=== PATIENT | female | born 1945 | race Caucasian/White ===

== ENCOUNTER → 2020-04-04 09:28 | Outpatient (BNVA) | payer MEDICARE, SELFPAY | PROVIDERS: PCP Internal Medicine; Referring Provider Internal Medicine; Visit Provider Internal Medicine Gastroenterology | DX: Z76.89 Persons encountering health services in other specified circumstances (principal) ==

== ENCOUNTER 2020-10-06 12:13 | Outpatient (REF) | payer MEDICARE, SELFPAY ==
[2020-10-06 14:04] LABS: Glucose Urine UA NEG (NEG); Leukocyte Esterase Urine NEG (NEG); Nitrite Urine NEG (NEG); PH 5.5 (5.0-8.0); Specific Gravity - Urine 1.025 (1.005-1.025); Urine Blood 1+ (NEG); Urine Ketones NEG (NEG); Urine Protein NEG (NEG-TRACE)
[2020-10-06 14:10] LABS: Appearance Urine CLEAR; Color Urine YELLOW
[2020-10-06 14:17] LABS: MANUAL DIFF FLAG NO
[2020-10-06 14:25] LABS: Basophils Percent Auto 0.2 % (0-2); Eosinophils Absolute Auto 0.3 X10*3/uL (0.0-0.4); Eosinophils Percent Auto 4.7 % (0-4); Hematocrit 38.1 % (37-47); Hemoglobin 12.1 g/dl (12.0-16.0); Imm Gran Abs Auto 0.02 X10*3/uL (0.00-0.03); Imm Gran Pct Auto 0.3 % (0.0-0.4); Lymphocytes Absolute Auto 1.9 X10*3/uL (1.2-4.9); Lymphocytes Percent Auto 29.1 % (20-40); Mean Corpuscular HGB Conc 31.8 g/dl (31.0-35.0); Mean Corpuscular Hemoglobin 28.2 pg (27.0-33.0); Mean Corpuscular Volume 88.8 fL (80-98); Mean Platelet Volume 9.7 fL (9.4-12.3); Monocytes Absolute Auto 0.3 X10*3/uL (0.1-1.2); Monocytes Percent Auto 5.3 % (2-11); Neutrophils Absolute Auto 3.9 X10*3/uL (2.0-8.3); Neutrophils Percent Auto 60.4 % (45-73); Platelet Count 200 X10*3/uL (160-400); Red Blood Count 4.29 X10*6/uL (4.20-5.50); White Blood Count 6.5 X10*3/uL (4.8-10.8)
[2020-10-06 14:53] LABS: Alanine Aminotransferase 18 U/L (0-31); Albumin Level 4.4 g/dL (3.5-5.0); Alkaline Phosphatase 113 U/L (39-117); Anion Gap 13 (12-20); Aspartate Amino Transferase 22 U/L (5-31); Bilirubin Total 0.5 mg/dL (0.0-1.0); Blood Urea Nitrogen 15 mg/dL (9-16); Calcium 9.4 mg/dL (8.4-10.2); Carbon Dioxide 30 mmol/L (22-29); Chloride 103 mmol/L (96-108); Cholesterol 200 mg/dL; Estimated Glomerular Filt Rate > 60; Glucose Fasting 91 mg/dL (60-99); HDL Cholesterol 49 mg/dL; LDL Cholesterol Calculated 115 mg/dl; Potassium 3.9 mmol/L (3.3-5.1); Sodium 142 mmol/L (135-145); Triglycerides 181 mg/dL
[2020-10-06 15:00] LABS: Squamous Epithelial Cell Urine 1+ /LPF; WBC Urine 0 /HPF (0-4)
[2020-10-06 15:03] LABS: TSH reflex Free T4 0.95 uIU/mL (0.32-4.0)
== END 2020-10-06 12:14 | disposition home or self-care (01) ==
LOC: HO.HMGCLDS 12:13
PROVIDERS: PCP Internal Medicine; Visit Provider Internal Medicine
DX: Z00.00 Encounter for general adult medical examination without abnormal findings (principal); R07.9 Chest pain, unspecified; R21 Rash and other nonspecific skin eruption
CPT/HCPCS: 36415; 80053; 80061; 81001; 84443; 85025

== ENCOUNTER 2021-11-24 15:14 | Outpatient (REF) | payer MEDICARE, SELFPAY ==
[2021-11-24 15:36] LABS: Binax Internal Control QC Valid; Binax Now Covid-19 Ag Positive (Negative)
== END 2021-11-24 15:15 | disposition home or self-care (01) ==
LOC: HO.HMGCLDS 15:14
PROVIDERS: PCP Internal Medicine; Visit Provider Internal Medicine
DX: Z20.822 Contact with and (suspected) exposure to COVID-19 (principal); J06.9 Acute upper respiratory infection, unspecified
CPT/HCPCS: 87811; C9803

== ENCOUNTER 2022-01-04 14:11 | Outpatient (REF) | payer MEDICARE, SELFPAY ==
[2022-01-04 14:56] LABS: MANUAL DIFF FLAG NO
[2022-01-04 15:04] LABS: Basophils Percent Auto 0.2 % (0-2); Eosinophils Absolute Auto 0.1 X10*3/uL (0.0-0.4); Eosinophils Percent Auto 1.6 % (0-4); Hematocrit 35.8 % (37.0-47.0); Hemoglobin 11.5 g/dl (12.0-16.0); Imm Gran Abs Auto 0.02 X10*3/uL (0.00-0.03); Imm Gran Pct Auto 0.4 % (0.0-0.4); Lymphocytes Absolute Auto 1.6 X10*3/uL (1.2-4.9); Lymphocytes Percent Auto 28.8 % (20-40); Mean Corpuscular HGB Conc 32.1 g/dl (31.0-35.0); Mean Corpuscular Hemoglobin 28.3 pg (27.0-33.0); Mean Platelet Volume 9.5 fL (9.4-12.3); Monocytes Absolute Auto 0.4 X10*3/uL (0.1-1.2); Monocytes Percent Auto 6.5 % (2-11); Neutrophils Absolute Auto 3.5 x10*3/uL (2.0-8.3); Neutrophils Percent Auto 62.5 % (45-73); Platelet Count 232 X10*3/uL (160-400); Red Blood Count 4.07 X10*6/uL (4.20-5.50); Red Cell Distribution Width 14.6 % (11.0-16.0); White Blood Count 5.6 X10*3/uL (4.8-10.8)
[2022-01-04 15:38] LABS: Alanine Aminotransferase 27 U/L (0-31); Albumin Level 4.3 g/dL (3.5-5.0); Alkaline Phosphatase 90 U/L (39-117); Anion Gap 14 (12-20); Aspartate Amino Transferase 27 U/L (5-31); Bilirubin Total 0.5 mg/dL (0.0-1.0); Blood Urea Nitrogen 16 mg/dL (9-16); C Reactive Protein 0.71 mg/dL (< or = 0.50); Calcium 9.6 mg/dL (8.4-10.2); Carbon Dioxide 28 mmol/L (22-29); Chloride 105 mmol/L (96-108); Estimated Glomerular Filt Rate > 60; Glucose Random 132 mg/dL (60-115); Iron 40 mcg/dL (30-160); Magnesium 2.1 mg/dL (1.6-2.6); Percent Iron Saturation 11 % (15-50); Potassium 3.8 mmol/L (3.3-5.1); Sodium 143 mmol/L (135-145); Total Iron Binding Capacity 374 mcg/dL (228-428); Total Protein 6.9 g/dL (6.5-8.0); Unsaturated Iron Binding 334 ug/dL
[2022-01-04 15:59] LABS: Vitamin D 25-OH Total 39.6 ng/mL (>30)
[2022-01-04 16:06] LABS: Vitamin B12 310 pg/mL (200-900)
== END 2022-01-04 14:12 | disposition home or self-care (01) ==
LOC: HO.HMGCLDS 14:11
PROVIDERS: PCP Internal Medicine; Visit Provider Internal Medicine
DX: I10 Essential (primary) hypertension (principal); R53.81 Other malaise; R53.83 Other fatigue; E55.9 Vitamin D deficiency, unspecified
CPT/HCPCS: 36415; 80053; 82306; 82607; 83540; 83735; 85025; 86140

== ENCOUNTER 2022-02-17 09:27 | Outpatient (REF) | payer MEDICARE, SELFPAY ==
[2022-02-17 11:39] LABS: Estimated Average Glucose 111 mg/dL; Hemoglobin A1c % 5.5 %
[2022-02-17 13:59] LABS: Blood Urea Nitrogen 20 mg/dL (9-16); Estimated Glomerular Filt Rate > 60; Glucose Fasting 90 mg/dL (60-99); Potassium 4.3 mmol/L (3.3-5.1)
[2022-02-17 14:35] LABS: Anion Gap 17 (12-20); Calcium 9.7 mg/dL (8.4-10.2); Carbon Dioxide 26 mmol/L (22-29); Chloride 105 mmol/L (96-108); Sodium 144 mmol/L (135-145)
== END 2022-02-17 09:28 | disposition home or self-care (01) ==
LOC: HO.HMGCLDS 09:27
PROVIDERS: PCP Internal Medicine; Visit Provider Internal Medicine
DX: R73.9 Hyperglycemia, unspecified (principal)
CPT/HCPCS: 36415; 80048; 83036

== ENCOUNTER 2022-03-01 15:04 | Outpatient (REF) | payer MEDICARE, SELFPAY ==
--- NOTE | ~2022-03-01 | XR_ITS ---
EXAMINATION: XR BILATERAL HIPS WITH AP PELVIS CLINICAL INFORMATION: M54.9 - Dorsalgia, unspecified. COMPARISON: CT abdomen pelvis dated 08/22/2019. TECHNIQUE: AP view of the pelvis and frog-leg lateral views of each hip were obtained. FINDINGS: Mzpd-bx-vjoqstgl osteoarthritis is evident at the pubic symphysis and sacroiliac joints with marginal osteophytes, joint space narrowing, articular sclerosis. There is minimal osteoarthritis in the hips. No fracture or malalignment. Degenerative spondylosis is evident in the lower lumbar spine. Soft tissues are unremarkable. No fracture or malalignment. 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 Minimal osteoarthritis in the hips.
--- NOTE | ~2022-03-01 | XR_ITS ---
EXAMINATION: XR LUMBOSACRAL SPINE CLINICAL INFORMATION: M54.9 - Dorsalgia, unspecified. COMPARISON: CT abdomen and pelvis dated 08/22/2019. TECHNIQUE: AP and lateral views of the lumbar spine and lateral view of the lumbosacral junction. FINDINGS: Minimal grade 1 retrolisthesis of L1 on L2 (2 mm) and L2 on L3 (2 mm). There is mild loss of vertebral disc height at most levels in the lumbar spine with relative sparing of L3-L4. Small endplate osteophytes are noted. No fractures are identified. Multilevel facet arthropathy. Mild osteoarthritis is present in the SI joints and hip joints bilaterally. Mild osteitis pubis. No fracture or malalignment. Surgical clips are present in the abdomen centrally. There is calcific atherosclerosis in the abdominal aorta. XR/XR lumbar spine 2-3V IMPRESSION: Mild multilevel degenerative disc disease and facet arthropathy throughout the lumbar spine. No acute osseous abnormalities. Mild retrolisthesis of L1 on L2 and L2 on L3.
== END 2022-03-01 15:05 | disposition home or self-care (01) ==
LOC: HO.HMGCX 15:04
PROVIDERS: PCP Internal Medicine; Visit Provider Internal Medicine
DX: M25.551 Pain in right hip (principal); M25.552 Pain in left hip; M54.9 Dorsalgia, unspecified
CPT/HCPCS: 72100; 73522

== ENCOUNTER 2022-05-05 12:36 | Outpatient (REF) | payer MEDICARE, SELFPAY | END 2022-05-05 12:37 | disposition home or self-care (01) | LOC: HO.HMGCLDS 12:36 | PROVIDERS: PCP Internal Medicine; Visit Provider Internal Medicine | DX: R10.9 Unspecified abdominal pain (principal); Z11.0 Encounter for screening for intestinal infectious diseases | CPT/HCPCS: 87338 ==

== ENCOUNTER 2022-07-19 13:55 | Outpatient (REF) | payer MEDICARE, SELFPAY ==
[2022-07-19 17:30] LABS: Influenza A PCR NEGATIVE (Negative); Influenza B PCR NEGATIVE (Negative); Resp Syncy Virus RNA Qual PCR NEGATIVE (Negative); SARS COV2 PCR INHOUSE POSITIVE (Negative)
== END 2022-07-19 13:56 | disposition home or self-care (01) ==
LOC: HO.LAB 13:55
PROVIDERS: Visit Provider Internal Medicine
DX: Z20.822 Contact with and (suspected) exposure to COVID-19 (principal); J06.9 Acute upper respiratory infection, unspecified
CPT/HCPCS: 0241U

== ENCOUNTER 2022-10-08 10:58 | Outpatient (REF) | payer MEDICARE, SELFPAY ==
[2022-10-08 14:07] LABS: MANUAL DIFF FLAG NO
[2022-10-08 14:14] LABS: Basophils Percent Auto 0.2 % (0-2); Eosinophils Absolute Auto 0.1 X10*3/uL (0.0-0.4); Eosinophils Percent Auto 1.4 % (0-4); Hematocrit 38.2 % (37.0-47.0); Hemoglobin 12.3 g/dl (12.0-16.0); Imm Gran Abs Auto 0.04 X10*3/uL (0.00-0.03); Imm Gran Pct Auto 0.4 % (0.0-0.4); Lymphocytes Absolute Auto 2.2 X10*3/uL (1.2-4.9); Lymphocytes Percent Auto 24.3 % (20-40); Mean Corpuscular HGB Conc 32.2 g/dl (31.0-35.0); Mean Corpuscular Hemoglobin 28.3 pg (27.0-33.0); Mean Platelet Volume 9.3 fL (9.4-12.3); Monocytes Absolute Auto 0.4 X10*3/uL (0.1-1.2); Monocytes Percent Auto 4.8 % (2-11); Neutrophils Absolute Auto 6.3 x10*3/uL (2.0-8.3); Neutrophils Percent Auto 68.9 % (45-73); Platelet Count 246 X10*3/uL (160-400); Red Blood Count 4.34 X10*6/uL (4.20-5.50); Red Cell Distribution Width 13.2 % (11.0-16.0); White Blood Count 9.1 X10*3/uL (4.8-10.8)
[2022-10-08 14:28] LABS: Alanine Aminotransferase 23 U/L (0-31); Albumin Level 4.3 g/dL (3.5-5.0); Alkaline Phosphatase 102 U/L (39-117); Anion Gap 16 (12-20); Aspartate Amino Transferase 24 U/L (5-31); Bilirubin Total 0.4 mg/dL (0.0-1.0); Blood Urea Nitrogen 13 mg/dL (9-16); Calcium 9.6 mg/dL (8.4-10.2); Carbon Dioxide 29 mmol/L (22-29); Chloride 103 mmol/L (96-108); Cholesterol 203 mg/dL; Estimated Glomerular Filt Rate > 60; Glucose Fasting 85 mg/dL (60-99); HDL Cholesterol 53 mg/dL; Iron 59 mcg/dL (30-160); LDL Cholesterol Calculated 128 mg/dl; Percent Iron Saturation 17 % (15-50); Sodium 144 mmol/L (135-145); Total Iron Binding Capacity 355 mcg/dL (228-428); Total Protein 6.9 g/dL (6.5-8.0); Triglycerides 113 mg/dL; Unsaturated Iron Binding 296 ug/dL
== END 2022-10-08 10:59 | disposition home or self-care (01) ==
LOC: HO.HMGCLDS 10:58
PROVIDERS: PCP Internal Medicine; Visit Provider Internal Medicine
DX: E55.9 Vitamin D deficiency, unspecified (principal); I10 Essential (primary) hypertension; M25.551 Pain in right hip; M25.552 Pain in left hip; R73.9 Hyperglycemia, unspecified; E61.1 Iron deficiency
CPT/HCPCS: 36415; 80053; 80061; 83540; 85025

== ENCOUNTER 2022-10-18 13:11 | Outpatient (REF) | payer MEDICARE, SELFPAY ==
--- NOTE | ~2022-10-18 | XR_ITS ---
EXAMINATION: XR KNEE, RIGHT CLINICAL INFORMATION: M25.561 - Pain in right knee COMPARISON: None available. TECHNIQUE: Four views of the right knee. FINDINGS: There is a moderate suprapatellar effusion. Hoffa's fat pad appears normal. The deep infrapatellar recess is preserved. There is minor spurring at the quadriceps insertion patella. There is no fracture, dislocation, or destructive process. Minor marginal osteophytes are seen medial femoral condyle and medial tibial plateau. No focal joint narrowing or subchondral sclerosis, erosive changes, or chondrocalcinosis. XR/XR knee RT 4V IMPRESSION: - Moderate suprapatellar effusion. - No joint narrowing or erosive change.
== END 2022-10-18 13:12 | disposition home or self-care (01) ==
LOC: HO.HMGCX 13:11
PROVIDERS: PCP Internal Medicine; Visit Provider Internal Medicine
DX: M25.561 Pain in right knee (principal)
CPT/HCPCS: 73564

== ENCOUNTER 2022-12-13 14:01 | Outpatient (AMB) | payer MEDICARE, SELFPAY ==
--- NOTE | 2022-12-13 14:02 | MHC.OFFVIS ---
Intake Intake Visit Reasons: Gastroesophageal reflux disease (GERD) Intake Note: Negra presents in the office as a follow up for GERD. CC: She is having acid reflux every once in a while - she states that when it does happen it is very severe. Stump Blower Required: Yes Stump Blower Name: daughter Allergies azithromycin Adverse Reaction (Intermediate, Verified 12/13/22 14:02) Stomach Upset HPI Gastroesophageal reflux disease (GERD) HPI Details A 77-year-old female with a history gastric cancer s/p partial gastrectomy 1998 BEING CALLED for f/u ? RECAP: Seen initially with increased acid reflux with [facility] ? She had refused an EGD, as well as PPI for acid reflux. ? Barium swallow was performed instead ===>severe reflux, no masses . ? She was prescribed nexium by [facility]< unclear if she was going to take it ? INTERIM: she is feeling well she has no symptoms she does have reflux and regurgitation but been better more recently --not using any medication right now, she didn;t really feel meds helped --once in a while a random she has no abdominal pain no constipation or diarrhea EXAM: good color, normal appearance A/P: 1/ Hx of gastric cancer, but no symptoms to suggest recurrence 2/ GERD PLAN: 1/ counseled on correct use of PPI and compliance, schedule for EGD for further assessment 2/ refer oncology for surveillance of gastric ca --work up was done at [facility], need to get the notes [facility] Medical History (Updated 12/13/22 @ 14:05 by NILTON Steven) Annual physical exam Bilateral renal cysts Chest pain GERD (gastroesophageal reflux disease) HTN (hypertension) Hx of malignant neoplasm of stomach IBS (irritable bowel syndrome) Rash Thyroid nodule Vitamin D deficiency Surgical History History of appendectomy History of colonoscopy History of hernia repair Hx of cholecystectomy Hx of endoscopy S/P gastric surgery Family History (Updated 12/13/22 @ 14:06 by NILTON Steven) Father No problems noted. Mother No problems noted. Sister No problems noted. Son No problems noted. Daughter No problems noted. Daughter No problems noted. Social History Housing: House Alcohol intake: never Patient Tobacco Use Status: Never used Tobacco e-Cigarette/Vaping Use: Never Used Current occupational status: retired Cognitive needs: No Hearing needs: No Vision needs: Yes Assessment & Plan Assessment & Plan (1) S/P gastric surgery: Comment: stomach CA 1998 Code(s): Z98.890 - Other specified postprocedural states (2) GERD (gastroesophageal reflux disease): Comment: severe on Barium swallow 01/2020 f/u GI Code(s): K21.9 - Gastro-esophageal reflux disease without esophagitis Medications: New esomeprazole magnesium 40 mg PO DAILY 90 caps 1RF Telehealth Telehealth Location of provider rendering services: practice address Location of patient: address on file Patient Identification confirmed using: Name, : Yes Telehealth method: video Patient verbally consented to treatment: Yes Patient verbally consented to billing insurance company: Yes Patient informed of any privacy concerns related to visit: Yes Minutes spent on Phone/Video with Pt.: 14 Coding Level of Care Code Tele Est Pt Level 3 (54670) Diagnoses S/P gastric surgery Z98.890 GERD (gastroesophageal reflux disease) K21.9
== END 2022-12-13 16:33 | disposition home or self-care (01) ==
LOC: HO.HGI 14:01
PROVIDERS: PCP Internal Medicine; Visit Provider Internal Medicine Gastroenterology
DX: K21.9 Gastro-esophageal reflux disease without esophagitis (principal); Z98.890 Other specified postprocedural states
CPT/HCPCS: 99213

== ENCOUNTER → 2022-12-13 14:01 | Outpatient (BNVA) | payer MEDICARE, SELFPAY | PROVIDERS: PCP Internal Medicine; Visit Provider Internal Medicine Gastroenterology | DX: K21.9 Gastro-esophageal reflux disease without esophagitis (principal); Z90.3 Acquired absence of stomach [part of]; Z85.028 Personal history of other malignant neoplasm of stomach; Z90.49 Acquired absence of other specified parts of digestive tract; Z98.890 Other specified postprocedural states | CPT/HCPCS: Q3014 ==

== ENCOUNTER 2023-01-10 13:43 | Outpatient (AMB) | payer MEDICARE, SELFPAY ==
[2023-01-10 14:06] VITALS: BP 146/74; PULSE 64; TEMP 36.2; O2SAT 97
--- NOTE | 2023-01-10 14:06 | MHC.OFFWIV ---
Intake Vital Signs 01/10/23 14:06 Height 4 ft 8 in BP 146/74 H Blood Pressure Location Rt brachial Position Sitting Pulse 64 Pulse Source Pulse Oximeter Temp 97.1 F Temp Source Temporal Artery Scan Pulse Oximetry (%) 97 Oxygen Delivery Method Room Air Intake Visit Reasons: EP LT Shoulder/Arm and Neck pain (lobby) Intake Note: Pt is here c/o left shoulder and neck pain. Pt states no falls or injuries. Patient Tobacco Use Status: Never used Tobacco Allergies azithromycin Adverse Reaction (Intermediate, Verified 01/10/23 14:20) Stomach Upset Do you need a note to return to daycare/school/sports/work: No HPI EP LT Shoulder/Arm and Neck pain (lobby) HPI Details Patient presents with 3 weeks of ongoing involving left neck shoulder and arm pain. She notes initial paresthesia to the 4th and 5th fingers and along the ulnar forearm up to the axilla. She has occasional radiation of pain to neck and below ear. She denies chest pain, shortness of breath, exercise intolerance, dizziness or weakness. Denies GI symptoms. She denies acute injury or activity that initiated pain. She has been using Tylenol or Advil which helps temporarily with pain. [facility] Medical History (Updated 12/13/22 @ 14:05 by NILTON Steven) Annual physical exam Bilateral renal cysts Chest pain GERD (gastroesophageal reflux disease) HTN (hypertension) Hx of malignant neoplasm of stomach IBS (irritable bowel syndrome) Rash Thyroid nodule Vitamin D deficiency Surgical History History of appendectomy History of colonoscopy History of hernia repair Hx of cholecystectomy Hx of endoscopy S/P gastric surgery Family History (Updated 12/13/22 @ 14:06 by NILTON Steven) Father No problems noted. Mother No problems noted. Sister No problems noted. Son No problems noted. Daughter No problems noted. Daughter No problems noted. Social History Housing: House Alcohol intake: never Patient Tobacco Use Status: Never used Tobacco e-Cigarette/Vaping Use: Never Used Current occupational status: retired Cognitive needs: No Hearing needs: No Vision needs: Yes Review of Systems Const Reports as per HPI and Reports no additional complaints Card Reports as per HPI and Reports no additional complaints Resp Reports as per HPI and Reports no additional complaints GI Reports as per HPI and Reports no additional complaints Musc Reports no additional complaints and Reports as per HPI Skin/Breast Denies lesions Neuro Reports no additional complaints and Reports as per HPI Physical Exam Vital Signs: Last Vital Signs Temp 97.1 F 01/10/23 14:06 Pulse 64 01/10/23 14:06 BP 146/74 H 01/10/23 14:06 Pulse Ox 97 01/10/23 14:06 Oxygen Delivery Method Room Air 01/10/23 14:06 Const General: cooperative, comfortable and no acute distress Orientation/consciousness: patient oriented x3 Eyes Pupils: Equal, round and reactive pupils present Neck Neck: Yes no lymphadenopathy and Yes no JVD Carotids: no bruits Lymphatic: no lymphadenopathy noted Resp Effort & Inspection: normal respiratory effort Auscultation: clear to auscultation bilaterally Cardio Rate: regular rate Rhythm: regular rhythm Heart sounds: S1 normal heart sound present and S2 normal heart sound present Back/Spine/Pelvis Cervical Spine: cervical muscular tenderness (Left trapezius), pain with cervical ROM (Pain to axilla and harm is reproducible with rotation and tilting head to L), No Cervical spine tenderness, cervical ROM abnormal (Reduce leftward rotation due to pain) and other (Positive Spurling on the left) Thoracic/Lumbar Spine: thoracic and lumbar spine normal to inspection Neuro Other: Painful paresthesia to light touch along the C7/8 dermatome of the upper extremity, channel partners strength and intrinsic equal bilaterally General: patient oriented x3 Cranial nerves: Yes Facial sensation intact/muscles of mastication intact and Yes Equal, round and reactive pupils present Gait exam (Neuro): Normal gait present Motor exam (neuro): 5/5 motor strength present throughout Results Reviewed Results Reviewed: X-ray of the cervical spine contemporaneously read by me there is significant DJD especially of the upper cervical spine and lower cervical spine C6-C7 area foramen appear painted on x-ray left is worse than right. Assessment & Plan Assessment & Plan (1) Cervicalgia: Code(s): M54.2 - Cervicalgia Plan: Will have patient trial Medrol Dosepak to see if this reduces some of the radicular symptoms and start her with physical therapy. I have given her written Rx for physical therapy as she would like to go to an outside location on [facility] where she has had other therapy. Advised to have a follow-up with her PCP in approximately 1 month if symptoms have not improved they may consider MRI or referral to pain management. Certainly she is welcome back to clinic if anything is worsening ER if she experiences any focal weakness, chest pain, changes in her symptom other severe. Orders: Orders XR cervical spine 4V 01/10/23 M54.2 - Cervicalgia Medications: New methylprednisolone (Medrol (Brown)) PO PER PKG DIR 21 ea 0RF Coding Level of Care Code Est Pt Level 4 (29973) Diagnoses Cervicalgia M54.2
== END 2023-01-10 16:51 | disposition home or self-care (01) ==
PROVIDERS: PCP Internal Medicine; Visit Provider Physician Assistant
DX: M54.2 Cervicalgia (principal)
CPT/HCPCS: 99214

== ENCOUNTER 2023-01-10 15:02 | Outpatient (REF) | payer MEDICARE, SELFPAY ==
--- NOTE | ~2023-01-10 | XR_ITS ---
EXAMINATION: XR CERVICAL SPINE CLINICAL INFORMATION: Cervicalgia. COMPARISON: None available. TECHNIQUE: 5 views of the cervical spine were obtained. FINDINGS: There is minimal grade 1 anterolisthesis of C4 over C5. Minimal grade 1 anterolisthesis of C7 over T1. Atlantoaxial distance is normal. There is qvhw-en-tkxdimre disc space narrowing at C6-C7 with probable partial fusion of the vertebral bodies posteriorly. No evidence of prevertebral soft tissue swelling. The airway is patent. Right-sided neural foramina appear well patent. There is a lyjk-ni-kqdwagfd neural foraminal stenosis at the left C4-C5 and C6-C7 levels. Facet arthropathy is noted, at multiple levels, specifically on the left. Visualized lung apices are unremarkable. Open-mouth view is grossly unremarkable. No evidence of cervical ribs. XR/XR cervical spine 4V IMPRESSION: No evidence of acute fracture or traumatic subluxation. Prominent left-sided facet arthropathy with vxon-el-zqlzsufv neural foraminal stenosis on the left at C4-C5 and C6-C7.
== END 2023-01-10 15:03 | disposition home or self-care (01) ==
LOC: HO.HMGCX 15:02
PROVIDERS: PCP Internal Medicine; Visit Provider Physician Assistant
DX: M54.2 Cervicalgia (principal)
CPT/HCPCS: 72050

== ENCOUNTER 2023-02-02 08:58 | Outpatient (AMB) | payer MEDICARE, SELFPAY ==
[2023-02-02 09:05] VITALS: BP 128/62; PULSE 65; TEMP 36.3; O2SAT 99; BMI 27.0
--- NOTE | 2023-02-02 09:05 | MHC.OFFVIS ---
Intake Vital Signs 02/02/23 09:05 Height 4 ft 8 in Weight 120 lb 5.958 oz BMI 27.0 BP 128/62 Blood Pressure Location Rt brachial Position Sitting Pulse 65 Pulse Source Pulse Oximeter Temp 97.3 F Temp Source Skin Pulse Oximetry (%) 99 Intake Visit Reasons: Rt knee pain Intake Note: New pt presents today for knee pain consult. When refer she had knee pain now that has changed and has pain in other places A R Collections Rep Required: No Accompanied by: Daughter Allergies azithromycin Adverse Reaction (Intermediate, Verified 02/02/23 09:08) Stomach Upset Medication List - Last Reconciled 02/02/23 by Alejandrina Torres MD lisinopril-hydrochlorothiazide 20-12.5 mg 0.5 tabs PO DAILY HPI HPI Comments History of Present Illness Details This is a 77-year-old female who presents for evaluation of multiple joint pain. Patient states that she has had pain in her low back, hips, especially the left hip for more than a year. She also started having right knee pain and swelling about 3-4 months ago. She also gets left shoulder pain. The pain is generally worse after sitting down for some time then walking. She does not have any morning stiffness. She uses Tylenol and ibuprofen. She would take ibuprofen 400 mg 2 to 3 times a week. He is unaware of any family history of autoimmune rheumatic disease. Patient went for physical therapy for her neck, left shoulder and left hip and a resource specialist evaluation was suggested. She gets left-sided chest pain, usually worse at night. She has history of stomach cancer that was resected in the s. There was no need for chemo or radiation. [facility] Medical History (Updated 02/02/23 @ 09:52 by Alejandrina Torres MD) Annual physical exam Bilateral renal cysts Chest pain GERD (gastroesophageal reflux disease) HTN (hypertension) Hx of malignant neoplasm of stomach IBS (irritable bowel syndrome) Rash Thyroid nodule Vitamin D deficiency Surgical History History of appendectomy History of colonoscopy History of hernia repair Hx of cholecystectomy Hx of endoscopy S/P gastric surgery Family History Father No problems noted. Mother No problems noted. Sister No problems noted. Son No problems noted. Daughter No problems noted. Daughter No problems noted. Social History Housing: House Alcohol intake: never Patient Tobacco Use Status: Never used Tobacco e-Cigarette/Vaping Use: Never Used Current occupational status: retired Cognitive needs: No Hearing needs: No Vision needs: Yes Review of Systems Eyes Reports blurry vision ENT Reports dry mouth, Reports hoarseness, Reports neck pain and Reports tinnitus GI Reports heartburn Musc Reports arthralgias, Reports joint swelling, Reports neck pain and Reports numbness Neuro Reports numbness Physical Exam Vital Signs: Last Vital Signs Temp 97.3 F 02/02/23 09:05 Pulse 65 02/02/23 09:05 BP 128/62 02/02/23 09:05 Pulse Ox 99 02/02/23 09:05 BMI result Body Mass Index 27.0 Const General: cooperative, healthy appearing and comfortable Nutritional Appearance: overweight Orientation/consciousness: patient oriented x3 Limitations: no limitations HEENT Head: Yes normocephalic and Yes atraumatic Mouth: moist mucous membranes Resp Effort & Inspection: normal respiratory effort and able to speak in complete sentences Auscultation: clear to auscultation bilaterally GI Inspection: No distended Palpation (GI): Soft to palpation and nontender Skin General skin exam: no rashes or lesions noted Neuro General: patient oriented x3 Extrem Other: No active synovitis Normal range of motion of both shoulders, some left shoulder pain with full range of motion Left trochanteric bursa area tenderness with negative Jose's test Bilateral groin pain with flexion adduction and external rotation of both hips No knee tender or swelling or pain with full flexion and extension Spurling's test produces radiating pain to the left shoulder on the left side Assessment & Plan Assessment & Plan (1) Polyarthralgia: Code(s): M25.50 - Pain in unspecified joint Plan: This is a 77-year-old female who presents for evaluation of diffuse joint pain, her joint pain is migratory and involves her left neck, left shoulder, left hip, right knee. Clinical picture rather consistent with degenerative arthritis, however given migratory picture will order comprehensive serology to screen for underlying autoimmune rheumatic disease. Check bilateral shoulder x-rays. I gave patient stretching exercises to do for her left trochanteric bursitis. Try Salonpas patches for her neck pain. Can consider referral to pain management for her cervical degenerative arthritis. Can consider steroid injection for her left shoulder and/or left trochanteric bursitis next visit. (2) Trochanteric bursitis of left hip: Code(s): M70.62 - Trochanteric bursitis, left hip Plan I spent 52 minutes reviewing patient's chart, evaluating patient, ordering diagnostic workup, counseling patient and documenting in the chart Orders: Orders Comprehensive Met. Panel Today M25.50 - Pain in unspecified joint Complete Blood Count Auto Diff Today M25.50 - Pain in unspecified joint Cyclic Citrullinated Peptide Today M25.50 - Pain in unspecified joint C Reactive Protein Today M25.50 - Pain in unspecified joint Rheumatoid Factor Today M25.50 - Pain in unspecified joint Erythrocyte Sedimentation Rate Today M25.50 - Pain in unspecified joint Hepatitis A,B,C Profile Today Z11.59 - Encounter for screening for other viral diseases XR shoulder LT min 2V Today M25.50 - Pain in unspecified joint XR shoulder RT min 2V Today M25.50 - Pain in unspecified joint Coding Level of Care Code New Pt Level 4 (93420) Diagnoses Polyarthralgia M25.50 Trochanteric bursitis of left hip M70.62
== END 2023-02-02 09:46 | disposition home or self-care (01) ==
PROVIDERS: PCP Internal Medicine; Visit Provider Student in an Organized Health Care Education/Training Program
DX: M25.50 Pain in unspecified joint (principal); M70.62 Trochanteric bursitis, left hip
CPT/HCPCS: 99204

== ENCOUNTER 2023-02-02 10:00 | Outpatient (REF) | payer MEDICARE, SELFPAY ==
--- NOTE | ~2023-02-02 | XR_ITS ---
EXAMINATION: X-ray bilateral shoulders CLINICAL INFORMATION: Pain COMPARISON: None TECHNIQUE: Bilateral shoulders each 4 views FINDINGS: Left shoulder: No acute fracture or dislocation. Minimal acromioclavicular arthritis. Glenohumeral alignment and joint space is maintained. No abnormal soft tissue calcification. Right shoulder: Mild acromioclavicular arthritis. No acute fracture or dislocation. Glenohumeral joint space is maintained. No abnormal soft tissue calcification. XR/XR shoulder LT min 2V IMPRESSION: Left shoulder: No acute osseous abnormality. Minimal acromioclavicular arthritis. Right shoulder: Mild acromioclavicular arthritis. No acute osseous abnormality.
--- NOTE | ~2023-02-02 | XR_ITS ---
EXAMINATION: X-ray bilateral shoulders CLINICAL INFORMATION: Pain COMPARISON: None TECHNIQUE: Bilateral shoulders each 4 views FINDINGS: Left shoulder: No acute fracture or dislocation. Minimal acromioclavicular arthritis. Glenohumeral alignment and joint space is maintained. No abnormal soft tissue calcification. Right shoulder: Mild acromioclavicular arthritis. No acute fracture or dislocation. Glenohumeral joint space is maintained. No abnormal soft tissue calcification. XR/XR shoulder RT min 2V IMPRESSION: Left shoulder: No acute osseous abnormality. Minimal acromioclavicular arthritis. Right shoulder: Mild acromioclavicular arthritis. No acute osseous abnormality.
[2023-02-02 10:14] LABS: MANUAL DIFF FLAG NO
[2023-02-02 10:28] LABS: Basophils Percent Auto 0.1 % (0-2); Eosinophils Absolute Auto 0.1 X10*3/uL (0.0-0.4); Eosinophils Percent Auto 1.1 % (0-4); Hematocrit 40.4 % (37.0-47.0); Hemoglobin 13.1 g/dl (12.0-16.0); Imm Gran Abs Auto 0.07 X10*3/uL (0.00-0.03); Lymphocytes Absolute Auto 1.5 X10*3/uL (1.2-4.9); Lymphocytes Percent Auto 20.8 % (20-40); Mean Corpuscular HGB Conc 32.4 g/dl (31.0-35.0); Mean Corpuscular Hemoglobin 28.5 pg (27.0-33.0); Mean Platelet Volume 9.1 fL (9.4-12.3); Monocytes Absolute Auto 0.3 X10*3/uL (0.1-1.2); Monocytes Percent Auto 4.8 % (2-11); Neutrophils Absolute Auto 5.2 x10*3/uL (2.0-8.3); Neutrophils Percent Auto 72.2 % (45-73); Platelet Count 204 X10*3/uL (160-400); Red Blood Count 4.59 X10*6/uL (4.20-5.50); White Blood Count 7.2 X10*3/uL (4.8-10.8)
[2023-02-02 11:00] LABS: Rheumatoid Factor < 13.0 IU/mL (<15.0)
[2023-02-02 11:12] LABS: Alanine Aminotransferase 19 U/L (0-31); Albumin Level 4.5 g/dL (3.5-5.0); Alkaline Phosphatase 89 U/L (39-117); Anion Gap 17 (12-20); Aspartate Amino Transferase 26 U/L (5-31); Bilirubin Total 0.5 mg/dL (0.0-1.0); Blood Urea Nitrogen 10 mg/dL (9-16); C Reactive Protein 0.27 mg/dL (< or = 0.50); Calcium 9.8 mg/dL (8.4-10.2); Carbon Dioxide 27 mmol/L (22-29); Chloride 104 mmol/L (96-108); Estimated Glomerular Filt Rate > 60; Glucose Random 106 mg/dL (60-115); Sodium 144 mmol/L (135-145); Total Protein 7.6 g/dL (6.5-8.0)
[2023-02-02 11:15] LABS: Erythrocyte Sedimentation Rate 23 MM/HR (0-20)
[2023-02-02 11:25] LABS: HBS Num1 0.02 mIU/mL (0-7.99); HBc Num1 0.14 S/CO (0.00-0.79); HBsAGNum1 0.26 S/CO (0.00-0.99); Hepatitis A Antibody IgM 0.24 Index (0-0.79); Hepatitis B Core Antibody Nonreactive (Nonreactive); Hepatitis B Surface Antigen Negative (Negative); ~HepC Num1 0.06 S/CO (0.00-0.79); ~Hepatitis A Antibody IgM Nonreactive (Nonreactive); ~Hepatitis B Surface Antibody NONREACTIVE (Nonreactive); ~Hepatitis C Antibody Nonreactive (Nonreactive)
[2023-02-04 11:37] LABS: Cyclic Citrullinated Peptide <16 UNITS
== END 2023-02-02 10:01 | disposition home or self-care (01) ==
LOC: HO.LAB 10:00
PROVIDERS: PCP Internal Medicine; Visit Provider Student in an Organized Health Care Education/Training Program
DX: M25.50 Pain in unspecified joint (principal); Z11.59 Encounter for screening for other viral diseases; Z72.89 Other problems related to lifestyle
CPT/HCPCS: 36415; 73030; 80053; 85025; 85652; 86140; 86200; 86431; 86704; 86706; 86709; 86803; 87340

== ENCOUNTER 2023-02-02 13:27 | Day surgery (SDC) | payer MEDICARE, SELFPAY ==
--- NOTE | 2023-01-31 12:40 | HO.ANESPROP2 ---
Documented by User: Nessa Ruvalcaba NP 01/31/23 12:41 HPI - Anesthesia Eval Consult details Narrative: 77yo F for Upper Endoscopy PMFSH Active Problems Active Problems: All Active Problems (Updated 12/13/22 @ 14:05 by NILTON Steven) GERD (gastroesophageal reflux disease) (Acute) S/P gastric surgery (Acute) Knee pain, right (Acute) Sinusitis (Acute) Iron deficiency (Acute) Hip pain, bilateral (Acute) Back pain (Acute) Abdominal pain (Acute) Hyperglycemia (Acute) Maxillary sinusitis, acute (Acute) Vitamin D deficiency (Acute) HTN (hypertension) (Acute) Otitis media (Acute) Rash (Acute) Annual physical exam (Acute) Chest pain (Acute) Esophagitis (Acute) Malaise and fatigue (Acute) Past Medical History Medical History (Updated 02/02/23 @ 09:52 by Alejandrina Torres MD) Annual physical exam Bilateral renal cysts Chest pain GERD (gastroesophageal reflux disease) HTN (hypertension) Hx of malignant neoplasm of stomach IBS (irritable bowel syndrome) Rash Thyroid nodule Vitamin D deficiency Family History Family History Father No problems noted. Mother No problems noted. Sister No problems noted. Son No problems noted. Daughter No problems noted. Daughter No problems noted. Surgical History Surgical History History of appendectomy History of colonoscopy History of hernia repair Hx of cholecystectomy Hx of endoscopy S/P gastric surgery Social History Social History Housing: House Alcohol intake: never Patient Tobacco Use Status: Never used Tobacco e-Cigarette/Vaping Use: Never Used Advance Directives: No Advance Directives Information Provided: Yes Current occupational status: retired Cognitive needs: No Hearing needs: No Vision needs: Yes Meds Allergies Allergy/AdvReac Type Severity Reaction Status Date / Time azithromycin AdvReac Intermediate Stomach Verified 02/02/23 09:08 Upset Home Medications Medication Instructions Recorded Confirmed Last Taken Type lisinopril 20 0.5 tab PO DAILY 12/13/22 01/31/23 Unknown History mg-hydrochlorothiazide 12.5 mg tablet Exam Exam Date and Time: January 31, 2023 1240 Pertinent Lab Results Pertinent Lab Results: Laboratory Tests 10/08/22 10/08/22 11:02 11:02 WBC 9.1 Hgb 12.3 Hct 38.2 Plt Count 246 Sodium 144 Potassium 4.0 Chloride 103 Carbon Dioxide 29 BUN 13 Creatinine 0.78 Assessment and Plan Assessment Anesthesia Assessment: Chart Reviewed Documented by User: Karishma Payne MD 02/02/23 13:57 PMF Past Medical History Medical History (Updated 02/02/23 @ 09:52 by Alejandrina Torres MD) Annual physical exam Bilateral renal cysts Chest pain GERD (gastroesophageal reflux disease) HTN (hypertension) Hx of malignant neoplasm of stomach IBS (irritable bowel syndrome) Rash Thyroid nodule Vitamin D deficiency Family History Family History Father No problems noted. Mother No problems noted. Sister No problems noted. Son No problems noted. Daughter No problems noted. Daughter No problems noted. Family history of problems with anesthesia: No Surgical History Surgical History History of appendectomy History of colonoscopy History of hernia repair Hx of cholecystectomy Hx of endoscopy S/P gastric surgery History of Problems with Anesthesia: No Social History Social History Housing: House Alcohol intake: never Patient Tobacco Use Status: Never used Tobacco e-Cigarette/Vaping Use: Never Used Advance Directives: No Advance Directives Information Provided: Yes Current occupational status: retired Cognitive needs: No Hearing needs: No Vision needs: Yes Meds Allergies Allergy/AdvReac Type Severity Reaction Status Date / Time azithromycin AdvReac Intermediate Stomach Verified 02/02/23 09:08 Upset Home Medications Medication Instructions Recorded Confirmed Last Taken Type lisinopril 20 0.5 tab PO DAILY 12/13/22 01/31/23 Unknown History mg-hydrochlorothiazide 12.5 mg tablet Exam Airway Mallampati Class: II (caps laterally) TM Dist: >3cm Neck ROM: Full Heart: rrr Lungs: cta Assessment and Plan Assessment Anesthesia Assessment: Anesthesia Plan Discussed Final Anesthetic Review Family History of Problems with Anesthesia: No History of Problems with Anesthesia: No NPO: Yes ASA Class: II Final Preanesthetic Review: No Changes in Pt Med Stat, Meds/Allgs Chart Reviewed and Consent Obtained/Reviewed Patient Risk: Intermediate Procedure Risk: Intermediate Anesthetic Plan Anesthetic Plan: MAC: Disposition: Standard PACU
[2023-01-31 15:02] VITALS: BMI 27.3
[2023-02-02 14:11] VITALS: BMI 26.9
[2023-02-02 14:18] VITALS: BP 148/75; PULSE 65; RESP 18; TEMP 36.3; O2SAT 98
[2023-02-02] MEDS: Lactated Ringers 1,000 ML 100 ML IVCONT (14:22)
--- NOTE | 2023-02-02 14:35 | MHC.SHP ---
Pre-Procedural Eval Section A Date of Service: 02/02/23 Section B Chief Complaint: Gastro-esophageal reflux disease w/ esophagitis Details of Present Illness: hx of stomach ca Relevant Family History (Specify if Yes): No Relevant Social History: None Present Medications: see Short Stay Collaborative assessment Medical History: Significant History (Bilateral renal cysts Chest pain GERD (gastroesophageal reflux disease) HTN (hypertension) Hx of malignant neoplasm of stomach IBS (irritable bowel syndrome) Rash Thyroid nodule Vitamin D deficiency) History of Previous Operations: Relevant previous surgery/procedure and date(s) (History of appendectomy History of colonoscopy History of hernia repair Hx of cholecystectomy Hx of endoscopy S/P gastric surgery) Allergies: Allergies Allergy/AdvReac Type Severity Reaction Status Date / Time azithromycin AdvReac Intermediate Stomach Verified 02/02/23 09:08 Upset Review of Systems Sugical H&P ROS: Negative: Constitution, Cardiovascular, Respiratory, Neurological, Psychiatric, Hem-Onc, Allergic/Immunologic, Gastrointestinal, Genitourinary, Musculoskeletal, Integumentary, Endocrine and Eyes/Ears/Nose/Throat Exam Surgical H&P Exam: Normal: HEENT, Normal: Heart, Normal: Lungs, Normal: Extremities, Normal: Abdomen, Normal: Skin and Normal: Neurological Plan Diagnosis/Plan: Unchanged I have reviewed the history and physical and performed a pertinent physical examination on my patient. No changes have occurred unless specified. Time Spent With Patient Time: Total time managing care of this patient today ____ minutes.
--- NOTE | 2023-02-02 15:03 | W.PM.OPN ---
Operative Note Operative Note Date of Service: 02/02/23 Narrative: Procedure Description: EGD Indication: GERD, hx of stomach ca Anesthesia: MAC FLEXIBLE TRANSORAL UPPER GASTROINTESTINAL ENDOSCOPY UPPER ENDOSCOPY Consent: Indications for the procedure and potential complications of bleeding, perforation, reaction to medications and missed diagnosis were discussed with the patient and informed consent was obtained. Instrument: Olympus GIF H 190 J mid size upper endoscope Monitoring: Vital signs and clinical assessment, continuous EKG monitoring, Pulse oximetry, Carbon Dioxide monitoring and blood pressure monitoring were done throughout the procedure. Procedure: The patient was placed in the left lateral decubitis position and pre-procedure medications were administered and a bite block was placed. The endoscope was inserted into the mouth and advanced under direct vision to the third part of duodenum. A careful inspection was made as the upper endoscope was withdrawn including a retroflexed examination of the proximal stomach; Findings and interventions are described below. Findings: Larynx:normal Esophagus: GE junction at 30 cm, diaphragm hiatus at 33 cm, consistent with 3 cm sliding hiatal hernia, erosive esophagitis noted at GEJ with bogginess and congestion, bx taken from here and distal, proximal esophagus. LES was also lax. Stomach: Patchy gastric erythema. Biopsies were obtained. Grade 2 flap valve on retroflexed examination of the cardia. Partial gastrectomy noted Small bowel--normal Intervention: Biopsies as noted above Impression/Findings: hiatal hernia erosive esophagitis lax LES PLAN: GERD precautions PPI compliance carafate prn
[2023-02-02 15:12] VITALS: BP 121/74; PULSE 90; RESP 16; TEMP 36.5; O2SAT 97
[2023-02-02 15:17] VITALS: BP 128/79; PULSE 66; RESP 16; O2SAT 96
[2023-02-02 15:32] VITALS: BP 133/76; PULSE 61; RESP 14; O2SAT 95
[2023-02-02 15:47] VITALS: BP 152/72; PULSE 60; RESP 14; TEMP 36.8; O2SAT 96
== END 2023-02-02 16:00 | disposition home or self-care (01) ==
PROVIDERS: PCP Internal Medicine; Visit Provider Internal Medicine Gastroenterology
PROC: 0DJ08ZZ Inspection of Upper Intestinal Tract, Via Natural or Artificial Opening Endoscopic (ICD-10-PCS; CPT 43235; principal; 2023-02-02 15:30)
DX: K20.80 Other esophagitis without bleeding (principal); K29.50 Unspecified chronic gastritis without bleeding; K44.9 Diaphragmatic hernia without obstruction or gangrene; Z85.028 Personal history of other malignant neoplasm of stomach; Z90.3 Acquired absence of stomach [part of]; Z98.890 Other specified postprocedural states; K58.9 Irritable bowel syndrome, unspecified; E55.9 Vitamin D deficiency, unspecified; M25.561 Pain in right knee; M54.50 Low back pain, unspecified; M70.62 Trochanteric bursitis, left hip; M25.59 Pain in other specified joint; R07.89 Other chest pain; I10 Essential (primary) hypertension; E04.1 Nontoxic single thyroid nodule; Z79.899 Other long term (current) drug therapy; Z79.1 Long term (current) use of non-steroidal anti-inflammatories (NSAID); Z88.1 Allergy status to other antibiotic agents; K21.9 Gastro-esophageal reflux disease without esophagitis
CPT/HCPCS: 43239; 88305; 88342; 99202

== ENCOUNTER → 2023-02-02 13:27 | Outpatient (BNV) | payer MEDICARE, SELFPAY | PROVIDERS: PCP Internal Medicine; Visit Provider Internal Medicine Gastroenterology | DX: K21.9 Gastro-esophageal reflux disease without esophagitis (principal); Z85.028 Personal history of other malignant neoplasm of stomach | CPT/HCPCS: 43239 ==

== ENCOUNTER 2023-02-18 10:06 | Outpatient (AMB) | payer MEDICARE, SELFPAY ==
--- NOTE | 2023-02-18 10:08 | A.OFFPC_ITS ---
Vital Signs 02/18/23 10:13 Height 4 ft 8 in Weight 122 lb BMI 27.3 BP 118/76 Blood Pressure Location Lt brachial Position Sitting Pulse 62 Pulse Source Pulse Oximeter Pulse Oximetry (%) 97 Oxygen Delivery Method Room Air Intake Visit Reasons: 01/10/23 walk in f/u Intake Note: Pt is here today for a follow up visit. Allergies azithromycin Adverse Reaction (Intermediate, Verified 02/18/23 10:16) Stomach Upset Medication List - Last Reconciled 02/18/23 by Clarissa Verduzco MD esomeprazole magnesium 40 mg PO DAILY lisinopril-hydrochlorothiazide 20-12.5 mg 0.5 tabs PO DAILY sucralfate (Carafate) 1 g PO BID Tobacco use date assessed: 02/18/23 Dental Screening Dental Screen Date: 02/18/23 Did you have a dental visit in the last 12 months?: Yes Did you have a dental problem in the last 6 months where you did not have access to dental care?: No Was dental information given to patient?: Patient has dentist HPI 01/10/23 walk in f/u HPI Details Patient presents complaining of left-sided chest pain pressure-like and left-sided neck pain and shoulder on and off of occasionally after physical exertion but also at rest. Patient denies PND orthopnea but reports dyspnea on exertion when walking up a flight of stairs. Patient does not exercise regularly. She denies palpitations. Hypertension is controlled on lisinopril with hydrochlorothiazide. Patient started physical therapy for chronic left- sided neck pain and feels slightly better. Patient denies weakness or numbness in the left upper extremity. [facility] Medical History (Updated 02/18/23 @ 11:19 by Clarissa Verduzco MD) Hx of malignant neoplasm of stomach Vitamin D deficiency Rash Annual physical exam Chest pain GERD (gastroesophageal reflux disease) IBS (irritable bowel syndrome) Bilateral renal cysts Thyroid nodule HTN (hypertension) Surgical History S/P gastric surgery Hx of cholecystectomy History of appendectomy History of hernia repair Hx of endoscopy History of colonoscopy Family History (Updated 02/18/23 @ 10:19 by NILTON Valente) Father No problems noted. Mother No problems noted. Sister No problems noted. Son No problems noted. Daughter No problems noted. Daughter No problems noted. Social History Housing: House Alcohol intake: never Patient Tobacco Use Status: Never used Tobacco e-Cigarette/Vaping Use: Never Used Current occupational status: retired Cognitive needs: No Hearing needs: No Vision needs: Yes Questionnaire Thrive Questionnaire Date Thrive assessed: 10/15/22 CASSIA-7 AMB Questionnaire CASSIA-7 Date CASSIA - 7 assessed: 10/15/22 Source: Developed by Drs. Matty Black, Noemy Olmedo, Geraldo Whitney and colleagues, with an educational joshua from [employer]. Review of Systems Const All systems reviewed & are unremarkable except as noted in HPI and below Reports no additional complaints Eyes Reports no additional complaints ENT Reports no additional complaints Card Reports no additional complaints Resp Reports no additional complaints Physical exam (Primary Care) Vital Signs: Last Vital Signs Pulse 62 02/18/23 10:13 BP 118/76 02/18/23 10:13 Pulse Ox 97 02/18/23 10:13 Oxygen Delivery Method Room Air 02/18/23 10:13 BMI result Body Mass Index 27.3 Tobacco/Smoking Status: Tobacco use Status Tobacco use date assessed 02/18/23 02/18/23 10:19 Patient Tobacco Use Status Never used Tobacco 02/18/23 10:08 e-Cigarette/Vaping Use Never Used 02/18/23 10:08 Thrive Assessment: Date of Thrive Assessment Date Thrive assessed 10/15/22 02/18/23 10:08 Const General: no acute distress HENMT Ears: hearing grossly normal bilaterally Eyes General: appearance normal, both eyes and all related structures Neck Neck: Yes supple Resp Effort & Inspection: normal respiratory effort Auscultation: clear to auscultation bilaterally Cardio Rhythm: regular rhythm Heart sounds: S1 normal heart sound present and S2 normal heart sound present GI Percussion: Yes normal to percussion Back/Spine/Pelvis Other: Paraspinal tenderness in lower cervical region left more than right and decreased range of motion in C-spine Assessment and Plan Assessment & Plan (1) Chest pain: Comment: left side Code(s): R07.9 - Chest pain, unspecified Plan: For atypical chest pains EKG showed sinus bradycardia at 56, first-degree AV block no ST-T changes. Patient will be referred for nuclear stress test and echocardiogram to evaluate for ischemia and ejection fraction with segmental wall motion abnormalities. Patient requests referral to Cardiology (2) Malaise and fatigue: Code(s): R53.81 - Other malaise; R53.83 - Other fatigue (3) HARP (dyspnea on exertion): Code(s): R06.09 - Other forms of dyspnea Plan: Obtain echocardiogram to evaluate for ejection fraction continue lisinopril with hydrochlorothiazide (4) Neck pain on left side: Code(s): M54.2 - Cervicalgia Plan: For chronic neck pain patient was advised to continue neck exercises, try li docaine patch Orders: Orders NM cardiolite stress test Today R07.9 - Chest pain, unspecified CA stress test Today R07.9 - Chest pain, unspecified CA echo transthoracic complete Today R06.09 - Other forms of dyspnea, R07.9 - Chest pain, unspecified, R53.81 - Other malaise, R53.83 - Other fatigue Referrals Cardiology Referral R06.09 - Other forms of dyspnea, R07.9 - Chest pain, uns pecified, R53.81 - Other malaise, R53.83 - Other fatigue Coding Level of Care Code Est Pt Level 3 (25979) Diagnoses Chest pain R07.9 Malaise and fatigue R53.81; R53.83 HARP (dyspnea on exertion) R06.09 Neck pain on left side M54.2
[2023-02-18 10:13] VITALS: BP 118/76; PULSE 62; O2SAT 97; BMI 27.3
== END 2023-02-18 11:20 | disposition home or self-care (01) ==
PROVIDERS: PCP Internal Medicine; Visit Provider Internal Medicine
DX: R07.9 Chest pain, unspecified (principal); R53.81 Other malaise; R53.83 Other fatigue; R06.09 Other forms of dyspnea; M54.2 Cervicalgia
CPT/HCPCS: 99213

== ENCOUNTER 2023-03-04 11:20 | Outpatient (AMB) | payer MEDICARE, SELFPAY ==
--- NOTE | 2023-03-04 11:22 | A.OFFVIS_ITS ---
Intake Vital Signs 03/04/23 11:23 Height 4 ft 8 in Weight 121 lb 4.068 oz BMI 27.2 BP 165/78 H Blood Pressure Location Lt brachial Position Sitting Pulse 65 Intake Visit Reasons: S/p egd Intake Note: Negra presents in the office as a follow up EGD. CC: She is not having any concerns since her procedure. Energy Trading Analyst Required: Yes Energy Trading Analyst Name: Daughter Allergies azithromycin Adverse Reaction (Intermediate, Verified 03/04/23 11:24) Stomach Upset HPI S/p egd HPI Details A 77-year-old female with a history gastric cancer s/p partial gastrectomy 1998 BEING seen for f/u ? RECAP: Seen initially with increased acid reflux with [facility] ? She had refused an EGD, as well as PPI for acid reflux. ? Barium swallow was performed instead ===>severe reflux, no masses . ? She was prescribed nexium by [facility]< unclear if she was going to take it EGD: 01/2023 Findings: Larynx:normal Esophagus: GE junction at 30 cm, diaphragm hiatus at 33 cm, consistent with 3 cm sliding hiatal hernia, erosive esophagitis noted at GEJ with bogginess and congestion, bx taken from here and distal, proximal esophagus. LES was also lax. Stomach: Patchy gastric erythema. Biopsies were obtained. Grade 2 flap valve on retroflexed examination of the cardia. Partial gastrectomy noted Small bowel--normal Intervention: Biopsies as noted above Impression/Findings: hiatal hernia erosive esophagitis lax LES PLAN: GERD precautions PPI compliance carafate prn ? INTERIM: she is feeling well with meds, no problems she has no symptoms no nausea or vomiting she has no abdominal pain no constipation or diarrhea EXAM: GENERAL: The patient is well developed and nontoxic. VITAL SIGNS:see workflow HEENT: Nonicteric sclerae, PERRLA, EOMI. Oropharynx clear. Moist mucous membranes. Conjunctivae appear well perfused. No thyroid mass. CHEST: Chest wall is nontender. HEART: Regular rate and rhythm without murmurs. LUNGS: Clear to auscultation bilaterally. ABDOMEN: Soft, positive bowel sounds, nontender, no organomegaly.no flank tenderness SKIN: No rash, no excessive bruising, petechiae, or purpura. NEUROLOGIC: Cranial nerves II-XII intact without motor/sensory deficit. A/P: 1/ Hx of gastric cancer, but no symptoms to suggest recurrence or on recent EGD 2/ GERD with esophagitis and Hiatal lay ia, small PLAN: 1/ cont with gerd precautions and PPI, s top carafate repeat EGD in 4 months to document healing and r/o barretts PFSH Medical History Hx of malignant neoplasm of stomach Vitamin D deficiency Rash Annual physical exam Chest pain GERD (gastroesophageal reflux disease) IBS (irritable bowel syndrome) Bilateral renal cysts Thyroid nodule HTN (hypertension) Surgical History S/P gastric surgery Hx of cholecystectomy History of appendectomy History of hernia repair Hx of endoscopy History of colonoscopy Family History Father No problems noted. Mother No problems noted. Sister No problems noted. Son No problems noted. Daughter No problems noted. Daughter No problems noted. Social History Housing: House Alcohol intake: never Patient Tobacco Use Status: Never used Tobacco e-Cigarette/Vaping Use: Never Used Current occupational status: retired Cognitive needs: No Hearing needs: No Vision needs: Yes Physical Exam Vital Signs: Last Vital Signs Pulse 65 03/04/23 11:23 BP 165/78 H 03/04/23 11:23 BMI result Body Mass Index 27.2 Assessment & Plan Assessment & Plan (1) GERD (gastroesophageal reflux disease): Comment: severe on Barium swallow 01/2020 f/u GI Code(s): K21.9 - Gastro-esophageal reflux disease without esophagitis (2) S/P gastric surgery: Comment: stomach CA 1998 Code(s): Z98.890 - Other specified postprocedural states Coding Level of Care Code Est Pt Level 3 (42790) Diagnoses GERD (gastroesophageal reflux disease) K21.9 S/P gastric surgery Z98.890
[2023-03-04 11:23] VITALS: BP 165/78; PULSE 65; BMI 27.2
== END 2023-03-04 11:51 | disposition home or self-care (01) ==
PROVIDERS: PCP Internal Medicine; Visit Provider Internal Medicine Gastroenterology
DX: K21.9 Gastro-esophageal reflux disease without esophagitis (principal); Z98.890 Other specified postprocedural states
CPT/HCPCS: 99213

== ENCOUNTER → 2023-03-04 11:20 | Outpatient (BNVA) | payer MEDICARE, SELFPAY | PROVIDERS: PCP Internal Medicine; Visit Provider Internal Medicine Gastroenterology | DX: K21.9 Gastro-esophageal reflux disease without esophagitis (principal); Z98.890 Other specified postprocedural states | CPT/HCPCS: 99212 ==

== ENCOUNTER → 2023-03-24 08:11 | Outpatient (REF) | payer MEDICARE, SELFPAY ==
--- NOTE | 2023-03-24 08:14 | CA_ITS ---
Transthoracic Echocardiogram Patient (Last, First, Middle): Negra Huff, Gender: Female Date of : 1945 Age: 77 Procedure Date: 03/24/2023 Procedure Type: Transthoracic Echocardiogram Location: OP Height: 142.24 cm Weight: 54.43 kg BSA: 1.43 m2 Heart Rate: 72 bpm BP: 132 / 78 mmHg Industrial Sewer: ELROY/ZAKIA Referring MD: Clarissa Verduzco MD Symptoms: R07.9 - Chest pain, unspecified Study Quality: Adequate ECG Rhythm: Sinus Conclusions: - The left ventricular systolic function is normal. The visually estimated ejection fraction is between 55-60%. - No obvious valvular pathology seen on this study. Findings Left Ventricle Normal left ventricular cavity size. There is normal left ventricular wall thickness. The left ventricular systolic function is normal. The visually estimated ejection fraction is between 55-60%. There is no evidence of regional wall motion abnormalities. Diastolic function is indeterminate on the basis of available data. LV peak GLS -15.8%. Right Ventricle Normal right ventricular cavity size and systolic function. Atria Both atria are normal in size. Aortic Valve There is a normal trileaflet aortic valve. There is no aortic valve stenosis. There is no aortic valve regurgitation. Mitral Valve The mitral valve appears normal. There is trace mitral valve regurgitation. There is no mitral valve stenosis. Pulmonic Valve The pulmonic valve is likely normal. Tricuspid Valve Normal tricuspid valve structure. There is trace tricuspid valve regurgitation. There is no evidence of pulmonary hypertension. Great Vessels The asc aorta is normal in size. Venous The inferior vena cava is normal in size and collapses greater than 50% with inspiration. Pericardium/Pleural There is no evidence of pericardial effusion. Prior Study Comparison No prior study available for comparison. Recommendations, Care & Conclusions No obvious valvular pathology seen on this study. Measurements 2D Linear Measurements IVSd: 0.50 0.6-0.9/0.6-1.0 cm LVIDd: 5.00 3.9-5.3/4.2-5.9 cm LVIDd Index: 3.50 2.4-3.2/2.2-3.1 cm/m2 LVIDs: 3.50 2.0-3.6 cm LVPWd: 0.60 0.7-1.1 cm LA Diam: 3.10 2.7-3.8/3.0-4.0 cm LAIDs Index: 2.17 1.5-2.3 cm/m2 LV Mass: 106.06 67-162/88-224 g LV Mass Index: 74.17 43-95/49-115 g/m2 LVOT Diam: 2.00 3.0+(-)1.3 cm 2D Systolic Function EF 4C: 54.20 >55% EF 2C: 52.90 >55% EF BiP: 51.30 >55% Mitral Valve E'Lateral: 7.58 Aortic Valve AoV Pk Blair: 1.29 AoV Mn Blair: 0.95 AoV VTI: 0.26 AoV Pk Grad: 7.00 Aov Mn Grad: 4.00 SIGRID Cont.VTI: 1.93 LVOT LVOT Pk Blair: 0.87 LVOT Mn Blair: 0.60 LVOT VTI: 0.16 LVOT Pk Grad: 3.00 LVOT Mn Grad: 2.00 LVOT Diam: 2.00 LVOT Area: 3.14 Diastolic Function E' Laterial: 7.58 Right Ventricle TAPSE (mm): 18.80 TVS' Blair: 13.10 Tricuspid Valve TR Pk Blair: 2.21 TR Pk Grad: 20.00 RA Press: 3.00 RVSP: 23.00 Great Vessels Aorta Sinus of Valsalva: 3.00 2.0-3.5 cm Ao Asc: 3.30 2.1-3.4 cm Pulmonary Valve PV Pk Blair: 0.74 Peak PV Grad: 2.00 Updated in Other Vendor System with Status of Final Cresencio Ramos MD electronically signed on 03/25/2023 3:32:41 PM with status of Final
== END ==
LOC: HO.CARD 08:11
PROVIDERS: PCP Internal Medicine; Visit Provider Internal Medicine
DX: R07.9 Chest pain, unspecified (principal); R06.09 Other forms of dyspnea; R53.81 Other malaise; R53.83 Other fatigue
CPT/HCPCS: 93306; 93356

== ENCOUNTER → 2023-03-24 08:14 | Outpatient (BNV) | payer MEDICARE, SELFPAY | PROVIDERS: PCP Internal Medicine; Visit Provider Internal Medicine | DX: R07.9 Chest pain, unspecified (principal) | CPT/HCPCS: 93306 ==

== ENCOUNTER 2023-06-28 12:56 | Outpatient (AMB) | payer OTHER, SELFPAY ==
--- NOTE | 2023-06-28 13:00 | A.OFFVIS_ITS ---
Intake Vital Signs 06/28/23 13:01 Height 4 ft 8 in Weight 123 lb 7.342 oz BMI 27.7 BP 120/70 Blood Pressure Location Lt brachial Position Sitting Pulse 75 Intake Visit Reasons: registry np/ cp/ malaise/ cichon Intake Note: New patient c/o fluttering in chest happens a few times a month Soft Drink Powder Mixer: Soft Drink Powder Mixer Present Accompanied by: Daughter Allergies azithromycin Adverse Reaction (Intermediate, Verified 03/04/23 11:24) Stomach Upset Medication List - Last Reconciled 06/28/23 by Angus Murphy MD lisinopril-hydrochlorothiazide 20-12.5 mg 0.5 tabs PO DAILY HPI HPI Comments History of Present Illness Details Thank you for referring Negra in cardiology consultation today for precordial chest discomfort as well as shortness of breath. She is accompanied by her daughter who exercise escrow representative. Patient with longstanding history of hypertension currently on lisinopril hydrochlorothiazide. As per the daughter most of the time the blood pressure is normal however at times she gets pressure in her had and the blood pressure spikes up. She has not sure as to the exact trigger. She does have high salt intake in her diet. She has not keen in r educing this. She has been getting intermittent episodes of burning chest discomfort in the precordial area radiating to the back into the left arm. For this she was advised a stress test by you but this was not completed. She did have an echocardiogram in March which showed LV ejection fraction 55-60% without any significant valvular abnormality. Since then that discomfort has improved however she says intermittently she does get pressure in the retrosternal area and she has not able to breathe. The symptoms are not necessarily exertional in nature. She has not measured a blood pressure during that time. She denies any other heart failure symptoms of orthopnea, PND, leg edema. No symptoms of claudication. She also not sure about feeling heaviness and slowness in heart rate sometimes when the symptoms happen and could have fluttering in her chest. She is not very clear about this. No prolonged palpitations irregular heartbeat. [facility] Medical History Hx of malignant neoplasm of stomach Vitamin D deficiency Rash Annual physical exam Chest pain GERD (gastroesophageal reflux disease) IBS (irritable bowel syndrome) Bilateral renal cysts Thyroid nodule HTN (hypertension) Surgical History S/P gastric surgery Hx of cholecystectomy History of appendectomy History of hernia repair Hx of endoscopy History of colonoscopy Family History Father No problems noted. Mother No problems noted. Sister No problems noted. Son No problems noted. Daughter No problems noted. Daughter No problems noted. Social History Housing: House Alcohol intake: never Patient Tobacco Use Status: Never used Tobacco e-Cigarette/Vaping Use: Never Used Current occupational status: retired Cognitive needs: No Hearing needs: No Vision needs: Yes Review of Systems Const Denies chills, Denies daytime sleepiness, Denies fatigue, Denies fever(s), Denies frequent falls, Denies poor appetite, Denies snoring, Denies stops breathing during sleep, Denies weakness, Denies weight gain and Denies weight loss Eyes Denies loss of vision ENT Denies dizziness and Denies hearing loss Card Denies chest pain, Denies claudication, Denies leg edema, Denies lightheadedness, Denies palpitations, Denies dyspnea, Denies dyspnea on exertion and Denies orthopnea Resp Denies cough, Denies excessive phlegm production, Denies dyspnea, Denies dyspnea on exertion, Denies snoring and Denies wheezing GI Denies abdominal pain, Denies hematochezia, Denies change in bowel habits, Denies nausea and Denies vomiting Denies urinary frequency and Denies dysuria Musc Denies arthralgias, Denies muscle weakness, Denies numbness and Denies other (frequent falls) Skin/Breast Denies nail changes and Denies rash Neuro Denies Abnormal speech present, Denies dizziness, Denies frequent falls, Denies loss of vision, Denies memory loss, Denies numbness and Denies weakness Psych Denies depression and Denies memory loss Endo Denies fatigue and Denies palpitations Andrea/Lymph Reports easy bruising and Reports other (anemia) Aller/Immun Denies wheezing Physical Exam Vital Signs: Last Vital Signs Pulse 75 06/28/23 13:01 BP 120/70 06/28/23 13:01 BMI result Body Mass Index 27.7 Const General: cooperative, comfortable, no acute distress, alert and awake Nutritional Appearance: overweight Orientation/consciousness: patient oriented x3 Limitations: no limitations HEENT Head: Yes normocephalic and Yes atraumatic Neck Neck: Yes trachea midline, Yes supple and Yes no JVD Resp Effort & Inspection: normal respiratory effort Auscultation: clear to auscultation bilaterally Cardio Jugular venous distension: no JVD Palpation: normal PMI Rate: regular rate Rhythm: regular rhythm Heart sounds: S1 normal heart sound present, S2 normal heart sound present, no click, no gallops, no murmurs and no rubs GI Auscultation: normal bowel sounds Skin General skin exam: no rashes or lesions noted Neuro General: patient oriented x3 and no focal motor deficits Speech: No Abnormal speech present Extrem General: Yes no clubbing, cyanosis or edema Psych Appearance: grossly normal Office Procedures EKG Details: EKG shows normal sinus rhythm with first-degree AV block with low-voltage QRS with no significant ST T wave changes [id number], Complete Assessment & Plan Assessment & Plan (1) Chest pain: Comment: left side Code(s): R07.9 - Chest pain, unspecified Plan: Precordial chest discomfort with some atypical features. She is 2 different kind of symptoms 1 with pressure in the chest associated with shortness of carol ath and 1 burning precordial discomfort radiating down the left arm and to the back. Both of these are atypical symptoms as they happen at rest and are not always associated with exertion. However given her risk factors and age myocardial ischemia needs to be ruled out. Will suggest exercise myocardial perfusion imaging to evaluate for the same to further assess for obstructive coronary artery disease. Importance of pursuing this test was discussed with her. She understands agrees. She also has symptoms of weird heartbeat around that time I will suggest a Holter monitor to assess for any significant bradycardia or tachyarrhythmias to assess for a causing her symptoms. Also advised her to monitor blood pressure during these episodes to see if this would be significantly elevated. (2) HTN (hypertension): Code(s): I10 - Essential (primary) hypertension Plan: Hypertension, on today's exam appears to be well controlled. However she says intermittently she has episodes of elevated blood pressure readings. I have advised her to maintain a log and measure her blood pressure more regularly. Also have advised her to see what triggers her elevated blood pressure whether it is high salt intake and/or stress. She will pay more attention to it. I also advised her to pursue low-salt diet overall. Continue current medications. Follow up in the clinic in 6 weeks time, sooner p.r.n.. Thank you for allowing me to partake in the care Orders: Orders CA stress test Today R07.9 - Chest pain, unspecified NM cardiolite stress test 2 Weeks R07.9 - Chest pain, unspecified ECG 7 day holter monitor Today R00.2 - Palpitations, R07.9 - Chest pain, unspecified Coding Level of Care Code New Pt Level 4 (53305) Diagnoses Chest pain R07.9 HTN (hypertension) I10 CPT Codes EKG - CPT: 30329-[id number], Complete ([id number])
[2023-06-28 13:01] VITALS: BP 120/70; PULSE 75; BMI 27.7
== END 2023-06-28 13:44 | disposition home or self-care (01) ==
PROVIDERS: PCP Internal Medicine; Visit Provider Internal Medicine Cardiovascular Disease
DX: R07.9 Chest pain, unspecified (principal); I10 Essential (primary) hypertension
CPT/HCPCS: 93010; 99204

== ENCOUNTER → 2023-06-28 12:56 | Outpatient (BNVA) | payer OTHER, SELFPAY | PROVIDERS: PCP Internal Medicine; Visit Provider Internal Medicine Cardiovascular Disease | DX: R07.2 Precordial pain (principal); I10 Essential (primary) hypertension; R00.2 Palpitations | CPT/HCPCS: 93005; 99202 ==

== ENCOUNTER 2023-08-10 11:27 | Outpatient (AMB) | payer MEDICARE, SELFPAY ==
[2023-08-10 11:33] VITALS: BP 122/68; PULSE 78; O2SAT 95; BMI 28.1
--- NOTE | 2023-08-10 11:33 | A.OFFVIS_ITS ---
Intake Vital Signs 08/10/23 11:33 Height 4 ft 8 in Weight 125 lb 3.561 oz BMI 28.1 BP 122/68 Blood Pressure Location Rt brachial Position Sitting Pulse 78 Pulse Source Pulse Oximeter Pulse Oximetry (%) 95 Oxygen Delivery Method Room Air Intake Visit Reasons: OA Intake Note: Pt last seen 02/02/23 presents today for follow up and test results. More pain in different areas; redness and swelling. Taking ibuprofen and tylenol Accompanied by: Daughter Allergies azithromycin Adverse Reaction (Intermediate, Verified 08/10/23 11:38) Stomach Upset Medication List - Last Reconciled 08/10/23 by Alejandrina Torres MD lisinopril-hydrochlorothiazide 20-12.5 mg 0.5 tabs PO DAILY HPI HPI Comments History of Present Illness Details Patient returns for follow-up after completion of her diagnostic workup. She continues to feel about the same. She states that she gets intermittent swelling of her knees. It happens about once a month and lasts about 3 days. She also has other pains including the outside of her hips and her hands. Recently she has been having triggering of her thumbs, more on the right, it happens almost daily. For her joint pains she takes Tylenol Arthritis 2 tabs twice daily. NSAIDs cause GI upset. Initial history: This is a 77-year-old female who presents for evaluation of multiple joint pain. Patient states that she has had pain in her low back, hips, especially the left hip for more than a year. She also started having right knee pain and swelling about 3-4 months ago. She also gets left shoulder pain. The pain is generally worse after sitting down for some time then walking. She does not have any morning stiffness. She uses Tylenol and ibupro fen. She would take ibuprofen 400 mg 2 to 3 times a week. He is unaware of any family history of autoimmune rheumatic disease. 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 She gets left-sided chest pain, usually worse at night. She has history of stomach cancer that was resected in the s. There was no need for chemo or radiation. [facility] Medical History Hx of malignant neoplasm of stomach Vitamin D deficiency Rash Annual physical exam Chest pain GERD (gastroesophageal reflux disease) IBS (irritable bowel syndrome) Bilateral renal cysts Thyroid nodule HTN (hypertension) Surgical History S/P gastric surgery Hx of cholecystectomy History of appendectomy History of hernia repair Hx of endoscopy History of colonoscopy Family History Father No problems noted. Mother No problems noted. Sister No problems noted. Son No problems noted. Daughter No problems noted. Daughter No problems noted. Social History Housing: House Alcohol intake: never Patient Tobacco Use Status: Never used Tobacco e-Cigarette/Vaping Use: Never Used Current occupational status: retired Cognitive needs: No Hearing needs: No Vision needs: Yes Review of Systems ENT Reports dry mouth, Reports hoarseness and Reports tinnitus Musc Reports arthralgias, Reports joint swelling and Reports limited range of motion Physical Exam Vital Signs: Last Vital Signs Pulse 78 08/10/23 11:33 BP 122/68 08/10/23 11:33 Pulse Ox 95 08/10/23 11:33 Oxygen Delivery Method Room Air 08/10/23 11:33 BMI result Body Mass Index 28.1 Const General: cooperative, healthy appearing and comfortable Nutritional Appearance: overweight Orientation/consciousness: patient oriented x3 Limitations: no limitations HEENT Head: Yes normocephalic and Yes atraumatic Resp Effort & Inspection: normal respiratory effort and able to speak in complete sentences Skin General skin exam: no rashes or lesions noted Neuro General: patient oriented x3 Extrem Other: No active synovitis Normal range of motion of both shoulders, some left shoulder pain with full range of motion Mild osteoarthritic changes of both hands with no active synovitis Mild triggering of right thumb Firm nodule at the base of right thumb on the palmar side Assessment & Plan Assessment & Plan (1) Polyarthralgia: Code(s): M25.50 - Pain in unspecified joint Plan: This is a 77-year-old female who presents for evaluation of diffuse joint pain, her joint pain is migratory and involves her left neck, left shoulder, left hip, right knee. Comprehensive serology and inflammatory markers are unremarkable. Clinical picture rather consistent with degenerative arthritis. Advised patient to take a picture of any swollen joint. Patient can continue with Tylenol Arthritis. She takes 2 tabs twice daily. NSAIDs cause GI upset. Can try turmeric Follow-up as needed (2) Trigger finger of right thumb: Code(s): M65.311 - Trigger thumb, right thumb Plan: Bilateral. Worse on the right, discussed the nature of this condition. Patient refused an injection today. Referred patient to occupational therapy. Follow-up as needed Plan I spent 27 minutes reviewing patient's chart, evaluating patient, counseling patient and documenting in the chart Orders: Orders OT Evaluation and Treatment Today M19.041 - Primary osteoarthritis, right hand, M19.042 - Primary osteoarthritis, left hand, M65.30 - Trigger finger, un specified finger Coding Level of Care Code Est Pt Level 4 (34597) Diagnoses Polyarthralgia M25.50 Trigger finger of right thumb M65.311
== END 2023-08-10 12:04 | disposition home or self-care (01) ==
PROVIDERS: PCP Internal Medicine; Visit Provider Student in an Organized Health Care Education/Training Program
DX: M25.50 Pain in unspecified joint (principal); M65.311 Trigger thumb, right thumb
CPT/HCPCS: 99214

== ENCOUNTER → 2023-08-10 11:27 | Outpatient (BNVA) | payer MEDICARE, SELFPAY | PROVIDERS: PCP Internal Medicine; Visit Provider Student in an Organized Health Care Education/Training Program | DX: M25.50 Pain in unspecified joint (principal); M65.311 Trigger thumb, right thumb | CPT/HCPCS: 99212 ==

== ENCOUNTER → 2023-08-22 08:32 | Outpatient (REF) | payer MEDICARE, SELFPAY ==
--- NOTE | ~2023-08-22 | NM_ITS ---
Exercise Myocardial perfusion study Indication: Chest pain to evaluate for myocardial ischemia Technique: The patient was brought in for an exercise perfusion study on 08/22/2023. Patient performed exercise as per Ulises protocol and was injected 25 mCi of sestamibi was given intravenously one target HR was achieved. Images were obtained using the SPECT gamma camera interlaced with the gating device. Images were obtained in supine position. Resting perfusion study was performed on 08/23/2023. Patient was administered 25 mCi of sestamibi intravenously at rest. Images were then obtained in supine position. Images obtained with and without CT attenuation. Total DLP 67 mGy-cm, Images were processed with the software and compared side to side in short axis, horizontal long axis and vertical long axis views. Findings: Resting images are suboptimal due to intense uptake interfering with inferior wall uptake The stress perfusion study showed both attenuated as well as non attenuated corrected images show normal uptake of radiotracer in all segments of LV myocardium. The gated study shows normal LV systolic function with calculated LVEF of 71%. LV cavity is normal in size. The gated study shows normal systolic wall thickening and contraction of all segments. There is no transient ischemic dilation. Resting study shows non attenuated images show diffuse reduced uptake in the entire myocardium due to subdiaphragmatic uptake.. Gating at rest reveals systolic wall motion with ejection fraction at greater than 60%. The findings are consistent with normal myocardial perfusion. NM/NM cardiolite stress test Impression: 1. Normal myocardial perfusion 2. Gated LVEF is 71% 3. Transient ischemic dilatation not present Stress EKG is negative for ischemia
--- NOTE | 2023-08-22 08:36 | CA_ITS ---
Acquisition Time: 2023-08-22 08:32:49 Total Exercise Time: 00:05:10 Test Indications: Dyspnea Medications: LISINOPRIL/HCTZ CARAFATE Protocol: JULITA Max HR: 146 BPM 101% of Pred: 144 BPM Max BP: 170/090 mmHG Max Work Load: 7.0 METS Exercise stress test exercise 5 min 10 sec of Julita protocol achieving 101% MPHR, without anginal symptoms, with isolated PVCs, with normotensive response to exercise, without EKG changes. Nuclear images pending, Test reviewed with Dr. Murphy. Referred By: Angus Murphy Overread By: Delicia Martin
--- NOTE | 2023-08-23 08:36 | HM_ITS ---
* Total monitoring time 7 days. * Underlying rhythm is sinus with an average rate of 82/Min. * Occasional supraventricular ectopy with a burden of 0.7%. * Rare ventricular ectopy with minimal burden. 2 very brief runs. Longest 5 beats. * Episodes of Mobitz type 1 second-degree heart block as well as transient complete heart block during sleep hours. * Patient marker used in association with sinus rhythm/sinus tachycardia. * No diary events. MTDD
== END ==
LOC: HO.CARD 08:32
PROVIDERS: PCP Internal Medicine; Visit Provider Internal Medicine Cardiovascular Disease
DX: R07.9 Chest pain, unspecified (principal); R00.2 Palpitations
CPT/HCPCS: 78452; 93017; 93242; A9500

== ENCOUNTER → 2023-08-22 08:36 | Outpatient (BNV) | payer MEDICARE, SELFPAY | PROVIDERS: PCP Internal Medicine; Visit Provider Nurse Practitioner | DX: I49.3 Ventricular premature depolarization (principal) | CPT/HCPCS: 78452; 93016; 93018 ==

== ENCOUNTER → 2023-08-23 08:36 | Outpatient (BNV) | payer MEDICARE, SELFPAY | PROVIDERS: PCP Internal Medicine; Visit Provider Internal Medicine | DX: R00.0 Tachycardia, unspecified (principal) | CPT/HCPCS: 93244 ==

== ENCOUNTER 2023-10-14 10:29 | Day surgery (SDC) | payer MEDICARE, SELFPAY ==
--- NOTE | 2023-10-12 13:13 | HO.ANESPROP2 ---
Documented by User: Nessa Ruvalcaba NP 10/13/23 09:11 HPI - Anesthesia Eval Consult details Narrative: 78yo F for Upper Endoscopy Recent w/u for chest pains negative. Per Dr Murphy, low cardiac risk for procedure. Holter notes Mobitz and complete heart block, but Dr Murphy personally reviewed strip and states no heart block. PMFSH Active Problems Active Problems: All Active Problems Trigger finger of right thumb (Acute) Neck pain on left side (Acute) HARP (dyspnea on exertion) (Acute) Trochanteric bursitis of left hip (Acute) Polyarthralgia (Acute) Knee pain, right (Acute) Sinusitis (Acute) Iron deficiency (Acute) Hip pain, bilateral (Acute) Back pain (Acute) Abdominal pain (Acute) Hyperglycemia (Acute) Maxillary sinusitis, acute (Acute) Otitis media (Acute) Annual physical exam (Acute) Esophagitis (Acute) Malaise and fatigue (Acute) GERD (gastroesophageal reflux disease) (Acute) S/P gastric surgery (Acute) Vitamin D deficiency (Acute) HTN (hypertension) (Acute) Rash (Acute) Chest pain (Acute) Past Medical History Medical History Chest pain Hx of malignant neoplasm of stomach Vitamin D deficiency Rash GERD (gastroesophageal reflux disease) IBS (irritable bowel syndrome) Bilateral renal cysts Thyroid nodule HTN (hypertension) Family History Family History Father No problems noted. Mother No problems noted. Sister No problems noted. Son No problems noted. Daughter No problems noted. Daughter No problems noted. Family history of problems with anesthesia: No Surgical History Surgical History S/P gastric surgery Hx of cholecystectomy History of appendectomy History of hernia repair Hx of endoscopy History of colonoscopy History of Problems with Anesthesia: No Social History Social History Housing: House Alcohol intake: never Patient Tobacco Use Status: Never used Tobacco e-Cigarette/Vaping Use: Never Used Use of substances other than those prescribed or required for medical reasons: No Are you DNR?: No Advance Directives: No Advance Directives Information Provided: Yes Current occupational status: retired Cognitive needs: No Hearing needs: No Vision needs: Yes Meds Allergies Allergy/AdvReac Type Severity Reaction Status Date / Time azithromycin AdvReac Intermediate Stomach Verified 10/14/23 11:08 Upset Home Medications ?Medication ?Instructions ?Recorded ?Confirmed ?Last Taken ?Type lisinopril 20 0.5 tab PO DAILY 06/28/23 10/14/23 Unknown History mg-hydrochlorothiazide 12.5 mg tablet Exam Narrative Narrative: EKG 2023 normal sinus rhythm with first-degree AV block with low-voltage QRS with no significant ST T wave changes NM cardiolite stress test 2023 Impression: 1. Normal myocardial perfusion 2. Gated LVEF is 71% 3. Transient ischemic dilatation not present Stress EKG is negative for ischemia ECHO 2022 Conclusions: - The left ventricular systolic function is normal. The visually estimated ejection fraction is between 55-60%. - No obvious valvular pathology seen on this study. Holter 2023 Total monitoring time 7 days. Underlying rhythm is sinus with an average rate of 82/Min. Occasional supraventricular ectopy with a burden of 0.7%. Rare ventricular ectopy with minimal burden. 2 very brief runs. Longest 5 beats. Episodes of Mobitz type 1 second-degree heart block as well as transient complete heart block during sleep hours. Patient marker used in association with sinus rhythm/sinus tachycardia. No diary events. Assessment and Plan Assessment Anesthesia Assessment: Chart Reviewed Final Anesthetic Review Family History of Problems with Anesthesia: No History of Problems with Anesthesia: No Documented by User: Elodia Washington MD 10/14/23 11:52 [facility] Past Medical History Medical History Chest pain Hx of malignant neoplasm of stomach Vitamin D deficiency Rash GERD (gastroesophageal reflux disease) IBS (irritable bowel syndrome) Bilateral renal cysts Thyroid nodule HTN (hypertension) Family History Family History Father No problems noted. Mother No problems noted. Sister No problems noted. Son No problems noted. Daughter No problems noted. Daughter No problems noted. Surgical History Surgical History S/P gastric surgery Hx of cholecystectomy History of appendectomy History of hernia repair Hx of endoscopy History of colonoscopy Social History Social History Housing: House Alcohol intake: never Patient Tobacco Use Status: Never used Tobacco e-Cigarette/Vaping Use: Never Used Use of substances other than those prescribed or required for medical reasons: No Are you DNR?: No Advance Directives: No Advance Directives Information Provided: Yes Current occupational status: retired Cognitive needs: No Hearing needs: No Vision needs: Yes Meds Allergies Allergy/AdvReac Type Severity Reaction Status Date / Time azithromycin AdvReac Intermediate Stomach Verified 10/14/23 11:08 Upset Home Medications ?Medication ?Instructions ?Recorded ?Confirmed ?Last Taken ?Type lisinopril 20 0.5 tab PO DAILY 06/28/23 10/14/23 Unknown History mg-hydrochlorothiazide 12.5 mg tablet Exam Airway Heart: rrr Lungs: cta Assessment and Plan Assessment Anesthesia Assessment: Anesthesia Plan Discussed Final Anesthetic Review NPO: Yes ASA Class: II Final Preanesthetic Review: No Changes in Pt Med Stat, Meds/Allgs Chart Reviewed, Consent Obtained/Reviewed and Anes Risks/Benef Reviewed Patient Risk: Low Procedure Risk: Low Anesthetic Plan Anesthetic Plan: MAC: Disposition: Standard PACU
[2023-10-12 14:04] VITALS: BMI 28.0
[2023-10-14 11:23] VITALS: BP 154/73; PULSE 65; RESP 14; TEMP 36.5; O2SAT 98; BMI 28.2
--- NOTE | 2023-10-14 11:32 | MHC.SHP ---
Pre-Procedural Eval Section A - 24 Hr Update-Section A only Date of Service: 10/14/23 Section B - Complete if H&P > 30 days Chief Complaint: postprocedural states,reflux disease Relevant Family History (Specify if Yes): No Relevant Social History: None Present Medications: see Short Stay Collaborative assessment Medical History: Significant History (Chest pain Hx of malignant neoplasm of stomach Vitamin D deficiency Rash GERD (gastroesophageal reflux disease) IBS (irritable bowel syndrome) Bilateral renal cysts Thyroid nodule HTN (hypertension)) History of Previous Operations: Relevant previous surgery/procedure and date(s) (S/P gastric surgery Hx of cholecystectomy History of appendectomy History of hernia repair Hx of endoscopy History of colonoscopy) Allergies: Allergies Allergy/AdvReac Type Severity Reaction Status Date / Time azithromycin AdvReac Intermediate Stomach Verified 10/14/23 11:08 Upset Review of Systems Sugical H&P ROS: Negative: Constitution, Cardiovascular, Respiratory, Neurological, Psychiatric, Hem-Onc, Allergic/Immunologic, Gastrointestinal, Genitourinary, Musculoskeletal, Integumentary, Endocrine and Eyes/Ears/Nose/Throat Exam Surgical H&P Exam: Normal: HEENT, Normal: Heart, Normal: Lungs, Normal: Extremities, Normal: Abdomen, Normal: Skin and Normal: Neurological Plan Diagnosis/Plan: Unchanged I have reviewed the history and physical and performed a pertinent physical examination on my patient. No changes have occurred unless specified. Time Spent With Patient Time: Total time managing care of this patient today ____ minutes.
--- NOTE | 2023-10-14 11:34 | W.PM.OPN ---
Operative Note Operative Note Date of Service: 10/14/23 Narrative: Procedure Description: EGD Indication: GERD Anesthesia: MAC FLEXIBLE TRANSORAL UPPER GASTROINTESTINAL ENDOSCOPY UPPER ENDOSCOPY Consent: Indications for the procedure and potential complications of bleeding, perforation, reaction to medications and missed diagnosis were discussed with the patient and informed consent was obtained. Instrument: Olympus GIF H 190 J mid size upper endoscope Monitoring: Vital signs and clinical assessment, continuous EKG monitoring, Pulse oximetry, Carbon Dioxide monitoring and blood pressure monitoring were done throughout the procedure. Procedure: The patient was placed in the left lateral decubitis position and pre-procedure medications were administered and a bite block was placed. The endoscope was inserted into the mouth and advanced under direct vision to the third part of duodenum. A careful inspection was made as the upper endoscope was withdrawn including a retroflexed examination of the proximal stomach; Findings and interventions are described below. Findings: Larynx:normal Esophagus: GE junction at 30 cm, diaphragm hiatus at 33 cm, consistent with 3 cm sliding hiatal hernia, mild erosive streaky esophagitis noted at GEJ, bx taken from here and distal esophagus. LES was also lax. Stomach: normal appearing mucosa. Grade 2 flap valve on retroflexed examination of the cardia. Partial gastrectomy noted Small bowel--normal Intervention: Biopsies as noted above Impression/Findings: hiatal hernia erosive esophagitis lax LES PLAN: GERD precautions PPI compliance, can consider changing PPI, other options might be baclofen, surgery, ARAT with hybrid APC carafate prn
[2023-10-14 12:05] VITALS: BP 103/51; PULSE 70; RESP 12; TEMP 36.1; O2SAT 97
[2023-10-14 12:20] VITALS: BP 133/78; PULSE 70; RESP 16; O2SAT 98
[2023-10-14 12:35] VITALS: BP 153/70; PULSE 60; RESP 16; TEMP 36.1; O2SAT 99
== END 2023-10-14 13:04 | disposition home or self-care (01) ==
PROVIDERS: PCP Internal Medicine; Visit Provider Internal Medicine Gastroenterology
PROC: 0DJ08ZZ Inspection of Upper Intestinal Tract, Via Natural or Artificial Opening Endoscopic (ICD-10-PCS; CPT 43235; principal; 2023-10-14 13:10)
DX: K21.00 Gastro-esophageal reflux disease with esophagitis, without bleeding (principal); K44.9 Diaphragmatic hernia without obstruction or gangrene; K22.89 Other specified disease of esophagus; I10 Essential (primary) hypertension; Z85.028 Personal history of other malignant neoplasm of stomach
CPT/HCPCS: 43239; 88305; 88313; J2704

== ENCOUNTER → 2023-10-14 10:29 | Outpatient (BNV) | payer MEDICARE, SELFPAY | PROVIDERS: PCP Internal Medicine; Visit Provider Internal Medicine Gastroenterology | DX: K21.00 Gastro-esophageal reflux disease with esophagitis, without bleeding (principal) | CPT/HCPCS: 43239 ==

== ENCOUNTER 2023-10-18 11:34 | Outpatient (AMB) | payer MEDICARE, SELFPAY ==
--- NOTE | 2023-10-18 11:36 | A.OFFPC_ITS ---
Vital Signs 10/18/23 11:42 Height 4 ft 8 in Weight 123 lb BMI 27.6 BP 114/70 Blood Pressure Location Rt brachial Position Sitting Pulse 70 Pulse Source Pulse Oximeter Pulse Oximetry (%) 96 Oxygen Delivery Method Room Air Intake Visit Reasons: Annual PE Intake Note: Pt is here today for PE. Allergies azithromycin Adverse Reaction (Intermediate, Verified 10/18/23 11:44) Stomach Upset Medication List - Last Reconciled 10/18/23 by Clarissa Verduzco MD baclofen 10 mg PO BEDTIME lansoprazole 30 mg PO DAILY lisinopril-hydrochlorothiazide 20-12.5 mg 0.5 tabs PO DAILY Tobacco use date assessed: 10/18/23 Fall risk assessment: No Falls in past year Last assessed Fall Risk: 10/18/23 Dental Screening Dental Screen Date: 10/18/23 Did you have a dental visit in the last 12 months?: Yes Did you have a dental problem in the last 6 months where you did not have access to dental care?: No Was dental information given to patient?: Patient has dentist HPI Annual PE HPI Details Patient presents for physical. She reports fluctuating blood pressure at home up to 170/90 on occasions after eating salty foods or getting upset. She denies chest pain or shortness for breath. Patient had endoscopy consistent with hiatal hernia and mild esophagitis and started taking lansoprazole. [facility] Medical History Chest pain Hx of malignant neoplasm of stomach Vitamin D deficiency Rash GERD (gastroesophageal reflux disease) IBS (irritable bowel syndrome) Bilateral renal cysts Thyroid nodule HTN (hypertension) Surgical History (Updated 10/18/23 @ 13:03 by Clarissa Verduzco MD) S/P gastric surgery Hx of cholecystectomy History of appendectomy History of hernia repair Hx of endoscopy History of colonoscopy Family History Father No problems noted. Mother No problems noted. Sister No problems noted. Son No problems noted. Daughter No problems noted. Daughter No problems noted. Social History Housing: House Alcohol intake: never Patient Tobacco Use Status: Never used Tobacco e-Cigarette/Vaping Use: Never Used service: No Current occupational status: retired Cognitive needs: No Hearing needs: No Vision needs: Yes Questionnaire PHQ-9 Over the last 2 weeks, how often have you been bothered by any of the following problems? 1. Little interest or pleasure in doing things: not at all 2. Feeling down, depressed, or hopeless: not at all 3. Trouble falling or staying asleep, or sleeping too much: not at all 4. Feeling tired or having little energy: not at all 5. Poor appetite or overeating: not at all 6. Feeling bad about yourself - or that you are a failure or have let yourself or your family down: not at all 7. Trouble concentrating on things, such as reading the newspaper or watching television: not at all 8. Moving or speaking so slowly that other people could have noticed. Or the opposite - being so fidgety or restless that you have been moving around a lot more than usual: not at all 9. Thoughts that you would be better off or of hurting yourself in some way: not at all Total score: 0 Depression Screening Interpretation: Negative Depression Screening Done: Yes Source: Developed by Drs. Matty Black, Noemy Olmedo, Geraldo Whitney and colleagues, with an educational joshua from [employer]. Thrive Questionnaire Date Thrive assessed: 10/18/23 I am a: Patient What is your living situation today?: I have a steady place to live Within the past 12 months, did the food you bought not last and you didn't have the money to get more?: Never true Within the past 12 months, did you worry whether your food would run out before you got money to buy more?: Never true Do you have trouble paying for medicines?: No Do you have trouble getting transportation to medical appointments?: No Do you have trouble paying your heating and electricity bill?: No Do you have trouble taking care of your child, family member or friend?: No Do you have trouble with day-to-day activities such as bathing, preparing meals, shopping, managing finances, etc.?: No Are you currently unemployed and looking for a job?: No Are you interested in more education?: No Please select the resources that you would like help with: None THRIVE Score: 0 AUDIT C Alcohol Use Questionnaire (AUDIT-C) 1. How often do you have a drink containing alcohol?: Never 3. How often do you have six or more drinks on one occasion?: Never Total Score: 0 CASSIA-7 AMB Questionnaire CASSIA-7 Date CASSIA - 7 assessed: 10/18/23 Feeling nervous, anxious, or on edge: 0 = Not at all Not being able to stop or control worryin = Not at all Worrying too much about different things: 0 = Not at all Trouble relaxin = Not at all Being so restless that it is hard to sit still: 0 = Not at all Becoming easily annoyed or irritable: 0 = Not at all Feeling afraid as if something awful might happen: 0 = Not at all Total CASSIA-7 score (0-4 normal; 5-9 mild; 10-14 moderate; 15-21 severe): 0 Source: Developed by Drs. Matty Black, Noemy Olmedo, Geraldo Whitney and colleagues, with an educational joshua from [employer]. Review of Systems Const All systems reviewed & are unremarkable except as noted in HPI and below Eyes Reports no additional complaints ENT Reports no additional complaints Card Reports no additional complaints Resp Reports no additional complaints GI Reports no additional complaints Reports no additional complaints Physical exam (Primary Care) Vital Signs: Last Vital Signs Pulse 70 10/18/23 11:42 BP 114/70 10/18/23 11:42 Pulse Ox 96 10/18/23 11:42 Oxygen Delivery Method Room Air 10/18/23 11:42 BMI result Body Mass Index 27.6 Tobacco/Smoking Status: Tobacco use Status Tobacco use date assessed 10/18/23 10/18/23 11:48 Patient Tobacco Use Status Never used Tobacco 10/18/23 11:38 e-Cigarette/Vaping Use Never Used 10/18/23 11:38 PHQ-9: PHQ-9 Score PHQ-9: Total score 0 10/18/23 11:48 Depression Screening Interpretation: Negative Thrive Assessment: Date of Thrive Assessment Date Thrive assessed 10/18/23 10/18/23 11:48 Const General: no acute distress HENMT Head: Yes normal to inspection Face and sinus: Yes normal facial exam Eyes General: appearance normal, both eyes and all related structures Neck Neck: Yes supple Resp Effort & Inspection: normal respiratory effort Auscultation: clear to auscultation bilaterally Cardio Rhythm: regular rhythm Heart sounds: S1 normal heart sound present and S2 normal heart sound present GI Inspection: Yes normal to inspection Palpation (GI): Soft to palpation Percussion: Yes normal to percussion Auscultation: normal bowel sounds Assessment and Plan Assessment & Plan (1) Iron deficiency: Code(s): E61.1 - Iron deficiency Plan: Check iron studies (2) Vitamin D deficiency: Code(s): E55.9 - Vitamin D deficiency, unspecified Plan: Continue vitamin-D supplement (3) HTN (hypertension): Code(s): I10 - Essential (primary) hypertension Plan: Increase lisinopril with hydrochlorothiazide to 20/12.5. Patient will have basic metabolic panel checked in 2 weeks and will follow-up in 1 month (4) Hyperglycemia: Code(s): R73.9 - Hyperglycemia, unspecified Plan: Continue ADA diet check A1c (5) Annual physical exam: Code(s): Z00.00 - Encounter for general adult medical examination without abnormal findings Plan: Well-balanced diet regular physical activity discussed with the patient Orders: Orders Complete Blood Count no Diff Today E55.9 - Vitamin D deficiency, unspecified, E61.1 - Iron deficiency, I10 - Essential (primary) hypertension, R73.9 - Hyperglycemia, unspecified Complete Blood Count Auto Diff Today E55.9 - Vitamin D deficiency, unspecified, E61.1 - Iron deficiency, I10 - Essential (primary) hypertension, R73.9 - Hyperglycemia, unspecified IRON PROFILE Today E55.9 - Vitamin D deficiency, unspecified, E61.1 - Iron deficiency, I10 - Essential (primary) hypertension, R73.9 - Hyperglycemia, unspecified Vitamin D 25-OH Total Today E55.9 - Vitamin D deficiency, unspecified, E61.1 - Iron deficiency, I10 - Essential (primary) hypertension, R73.9 - Hyperglycemia, unspecified Lipid Panel Today E55.9 - Vitamin D deficiency, unspecified, E61.1 - Iron deficiency, I10 - Essential (primary) hypertension, R73.9 - Hyperglycemia, unspecified Vitamin B12 and Folate Today E55.9 - Vitamin D deficiency, unspecified, E61.1 - Iron deficiency, I10 - Essential (primary) hypertension, R73.9 - Hyperglycemia, unspecified Coding Level of Care Code Est Pt Prev Care >65y(92355) Diagnoses Iron deficiency E61.1 Vitamin D deficiency E55.9 HTN (hypertension) I10 Hyperglycemia R73.9 Annual physical exam Z00.00
[2023-10-18 11:42] VITALS: BP 114/70; PULSE 70; O2SAT 96; BMI 27.6
== END 2023-10-18 13:05 | disposition home or self-care (01) ==
PROVIDERS: Visit Provider Internal Medicine
DX: E61.1 Iron deficiency (principal); E55.9 Vitamin D deficiency, unspecified; I10 Essential (primary) hypertension; R73.9 Hyperglycemia, unspecified; Z00.00 Encounter for general adult medical examination without abnormal findings
CPT/HCPCS: 99397

== ENCOUNTER 2023-10-18 12:40 | Outpatient (REF) | payer MEDICARE, SELFPAY ==
[2023-10-18 15:59] LABS: MANUAL DIFF FLAG NO
[2023-10-18 16:06] LABS: Basophils Percent Auto 0.2 % (0-2); Eosinophils Absolute Auto 0.1 X10*3/uL (0.0-0.4); Eosinophils Percent Auto 1.3 % (0-4); Hematocrit 37.7 % (37.0-47.0); Hemoglobin 12.1 g/dl (12.0-16.0); Imm Gran Abs Auto 0.02 X10*3/uL (0.00-0.03); Imm Gran Pct Auto 0.3 % (0.0-0.4); Lymphocytes Absolute Auto 1.8 X10*3/uL (1.2-4.9); Lymphocytes Percent Auto 28.5 % (20-40); Mean Corpuscular HGB Conc 32.1 g/dl (31.0-35.0); Mean Corpuscular Volume 87.3 fL (80.0-98.0); Mean Platelet Volume 9.5 fL (9.4-12.3); Monocytes Absolute Auto 0.4 X10*3/uL (0.1-1.2); Neutrophils Absolute Auto 3.9 x10*3/uL (2.0-8.3); Neutrophils Percent Auto 63.7 % (45-73); Platelet Count 228 X10*3/uL (160-400); Red Blood Count 4.32 X10*6/uL (4.20-5.50); Red Cell Distribution Width 14.5 % (11.0-16.0); White Blood Count 6.1 X10*3/uL (4.8-10.8)
[2023-10-18 16:47] LABS: Cholesterol 195 mg/dL (<200); HDL Cholesterol 62 mg/dL (>40); Iron 55 mcg/dL (30-160); LDL Cholesterol Calculated 119 mg/dL (<100); Percent Iron Saturation 16 % (15-50); Total Iron Binding Capacity 353 mcg/dL (228-428); Triglycerides 71 mg/dL (<150); Unsaturated Iron Binding 298 ug/dL
[2023-10-18 16:54] LABS: Vitamin D 25-OH Total 57.6 ng/mL (>30)
[2023-10-18 17:09] LABS: Folate 14.1 ng/mL (> or = 4.0); Vitamin B12 493 pg/mL (200-900)
== END 2023-10-18 12:41 | disposition home or self-care (01) ==
LOC: HO.HMGCLDS 12:40
PROVIDERS: PCP Internal Medicine; Visit Provider Internal Medicine
DX: E61.1 Iron deficiency (principal); E55.9 Vitamin D deficiency, unspecified; I10 Essential (primary) hypertension; R73.9 Hyperglycemia, unspecified
CPT/HCPCS: 36415; 80061; 82306; 82607; 82746; 83540; 85025; 85027

== ENCOUNTER 2024-01-27 13:35 | Outpatient (REF) | payer MEDICARE, SELFPAY ==
--- NOTE | ~2024-01-27 | XR_ITS ---
EXAMINATION: XR ABDOMEN KUB CLINICAL INDICATION: Diarrhea, unspecified. COMPARISON: CT dated 08/22/2019. TECHNIQUE: AP view of the abdomen. FINDINGS: Nondilated bowel gas pattern. Minimal intraluminal stool. Skin amber in the left midabdomen. No evidence of ileus or obstruction. No appreciable intraperitoneal free air. Atherosclerotic calcifications are present in the region of the splenic artery. There are numerous surgical clips are present in the upper abdomen and gastroesophageal junction and around the gallbladder fossa. Lung bases are clear. Mild degenerative disc disease in the lumbar spine with facet arthropathy at L5-S1. Mild osteoarthritis in the hips. XR/XR KUB IMPRESSION: Nonobstructive bowel gas pattern. Electronically signed by: Sung Ragsdale MD 02/20/2024 07:34 PM EDT
[2024-01-27 14:07] LABS: MANUAL DIFF FLAG NO
[2024-01-27 14:49] LABS: Basophils Percent Auto 0.2 % (0-2); Eosinophils Absolute Auto 0.1 X10*3/uL (0.0-0.4); Eosinophils Percent Auto 1.1 % (0-4); Hematocrit 35.3 % (37.0-47.0); Hemoglobin 11.5 g/dl (12.0-16.0); Imm Gran Abs Auto 0.03 X10*3/uL (0.00-0.03); Imm Gran Pct Auto 0.4 % (0.0-0.4); Lymphocytes Absolute Auto 2.3 X10*3/uL (1.2-4.9); Lymphocytes Percent Auto 27.9 % (20-40); Mean Corpuscular HGB Conc 32.6 g/dl (31.0-35.0); Mean Corpuscular Hemoglobin 28.7 pg (27.0-33.0); Mean Platelet Volume 9.3 fL (9.4-12.3); Monocytes Absolute Auto 0.5 X10*3/uL (0.1-1.2); Monocytes Percent Auto 6.3 % (2-11); Neutrophils Absolute Auto 5.2 x10*3/uL (2.0-8.3); Neutrophils Percent Auto 64.1 % (45-73); Platelet Count 204 X10*3/uL (160-400); Red Blood Count 4.01 X10*6/uL (4.20-5.50); Red Cell Distribution Width 13.7 % (11.0-16.0); White Blood Count 8.1 X10*3/uL (4.8-10.8)
[2024-01-27 15:22] LABS: Alanine Aminotransferase 15 U/L (0-31); Albumin Level 4.1 g/dL (3.5-5.0); Alkaline Phosphatase 105 U/L (39-117); Anion Gap 12 (12-20); Aspartate Amino Transferase 19 U/L (5-31); Bilirubin Total 0.4 mg/dL (0.0-1.0); Blood Urea Nitrogen 14 mg/dL (9-16); C Reactive Protein 1.93 mg/dL (< or = 0.50); Calcium 9.8 mg/dL (8.4-10.2); Carbon Dioxide 27 mmol/L (22-29); Chloride 108 mmol/L (96-108); Estimated Glomerular Filt Rate > 60; Glucose Random 65 mg/dL (60-115); Potassium 4.3 mmol/L (3.3-5.1); Sodium 143 mmol/L (135-145)
[2024-01-27 15:31] LABS: Ferritin 61 ng/mL (10-250); TSH reflex Free T4 1.29 uIU/mL (0.32-4.0)
[2024-01-27 15:32] LABS: Appearance Urine Clear; Color Urine Yellow; Glucose Urine UA Negative (Negative); Leukocyte Esterase Urine Negative (Negative); Nitrite Urine Negative (Negative); PH 5.5 (5.0-9.0); UMIC TRIGGER UACC YES; Urine Blood Small (1+) (Negative); Urine Ketones Negative (Negative); Urine Protein Negative (Neg-Trace)
[2024-01-27 15:48] LABS: Bacteria Urine None Seen (None Seen); Hyaline Casts Urine 0-2 /LPF (0-2); RBC Urine 0-2 /HPF (0-2); Squamous Epithelial Cell Urine 0-2 /HPF (0-2); WBC Urine 0-5 /HPF (0-5)
== END 2024-01-27 13:36 | disposition home or self-care (01) ==
LOC: HO.XRAY 13:35
PROVIDERS: PCP Internal Medicine; Visit Provider Internal Medicine Gastroenterology
DX: R19.7 Diarrhea, unspecified (principal); K75.81 Nonalcoholic steatohepatitis (NASH)
CPT/HCPCS: 36415; 74018; 80053; 81001; 82728; 84443; 85025; 86140

== ENCOUNTER 2024-01-30 14:53 | Outpatient (REF) | payer MEDICARE, SELFPAY ==
[2024-01-30 15:49] LABS: CDiff Gene PCR NEGATIVE (Negative)
[2024-01-31 09:05] LABS: Adenovirus F 40/41 Not Detected (Not Detect.); Astrovirus Not Detected (Not Detect.); Campylobacter Not Detected (Not Detect.); Cryptosporidium Not Detected (Not Detect.); Cyclospora cayetanensis Not Detected (Not Detect.); E. coli EAEC Not Detected (Not Detect.); E. coli EPEC Detected (Not Detect.); E. coli ETEC Not Detected (Not Detect.); E. coli STEC Not Detected (Not Detect.); Entamoeba histolytica Not Detected (Not Detect.); Giardia lamblia Not Detected (Not Detect.); Norovirus GI/GII Not Detected (Not Detect.); Plesiomonas shigelloides Not Detected (Not Detect.); Rotavirus A Not Detected (Not Detect.); Salmonella Not Detected (Not Detect.); Sapovirus Not Detected (Not Detect.); Shigella sp./EIEC Not Detected (Not Detect.); Vibrio Not Detected (Not Detect.); Vibrio Cholerae Not Detected (Not Detect.); Yersinia enterocolitica Not Detected (Not Detect.)
== END 2024-01-30 14:54 | disposition home or self-care (01) ==
LOC: HO.LNP 14:53
PROVIDERS: Visit Provider Internal Medicine Gastroenterology
DX: R19.7 Diarrhea, unspecified (principal)
CPT/HCPCS: 87493; 87507

== ENCOUNTER 2024-04-09 11:10 | Outpatient (AMB) | payer MEDICARE, SELFPAY ==
--- NOTE | 2024-04-09 11:12 | MHC.OFFVIS ---
Vital Signs 04/09/24 11:14 Height 4 ft 8 in Weight 116 lb 13.52 oz BMI 26.2 BP 118/56 L Blood Pressure Location Lt brachial Position Sitting Pulse 69 Intake Visit Reasons: GI discomfort Intake Note: Negra presents in the office as a follow up with GI discomfort. CC: She is still having the stomach issue and weight loss is something she is dealing with. Hand Cell Tuber Required: Yes Hand Cell Tuber Name: daughter Allergies azithromycin Adverse Reaction (Intermediate, Verified 04/09/24 11:14) Stomach Upset HPI HPI GI discomfort: Details: 78-year-old female with a history gastric cancer s/p partial gastrectomy 1998 BEING seen for f/u RECAP: Seen initially with increased acid reflux with [facility] She had refused an EGD, as well as PPI for acid reflux. Barium swallow was performed instead ===>severe reflux, no masses . She was prescribed nexium by [facility]< unclear if she was going to take it EGD: 01/2023 Findings: Larynx:normal Esophagus: GE junction at 30 cm, diaphragm hiatus at 33 cm, consistent with 3 cm sliding hiatal hernia, erosive esophagitis noted at GEJ with bogginess and congestion, bx taken from here and distal, proximal esophagus. LES was also lax. Stomach: Patchy gastric erythema. Biopsies were obtained. Grade 2 flap valve on retroflexed examination of the cardia. Partial gastrectomy noted Small bowel--normal Intervention: Biopsies as noted above Impression/Findings: hiatal hernia erosive esophagitis lax LES PLAN: GERD precautions PPI compliance carafate prn Rept EGD: 10/27 hiatal hernia erosive esophagitis lax LES path: inflammation GEJ, distal esophagus INTERIM: she is still using lansoprazole, and it helps but she still gets regurgitation she gets hiccups with dry foods no trouble with dysphagia no nausea or vomiting she has no abdominal pain no constipation or diarrhea daughter worried she has lost some weight about 6-10 # EXAM: GENERAL: The patient is well developed and nontoxic. VITAL SIGNS:see workflow HEENT: Nonicteric sclerae, PERRLA, EOMI. Oropharynx clear. Moist mucous membranes. Conjunctivae appear well perfused. No thyroid mass. CHEST: Chest wall is nontender. HEART: Regular rate and rhythm without murmurs. LUNGS: Clear to auscultation bilaterally. ABDOMEN: Soft, positive bowel sounds, nontender, no organomegaly.no flank tenderness SKIN: No rash, no excessive bruising, petechiae, or purpura. NEUROLOGIC: Cranial nerves II-XII intact without motor/sensory deficit. A/P: 1/ Hx of gastric cancer, but no symptoms to suggest recurrence or on recent EGD 2/ GERD with esophagitis and hiatal hernia, patulous LES PLAN: 1/ cont with gerd precautions and PPI--but change the timing of the PPI to before her evening meal, cont with baclofen, other options discussed incl increasing baclofen or BID dosing of PPI, surgical referral 2/ CT A/P with IV and PO contrast, might need colonoscopy PFSH Medical History Chest pain Hx of malignant neoplasm of stomach Vitamin D deficiency Rash GERD (gastroesophageal reflux disease) IBS (irritable bowel syndrome) Bilateral renal cysts Thyroid nodule HTN (hypertension) Surgical History S/P gastric surgery Hx of cholecystectomy History of appendectomy History of hernia repair Hx of endoscopy History of colonoscopy Family History Father No problems noted. Mother No problems noted. Sister No problems noted. Son No problems noted. Daughter No problems noted. Daughter No problems noted. Social History Housing: House Alcohol intake: never Patient Tobacco Use Status: Never used Tobacco e-Cigarette/Vaping Use: Never Used service: No Current occupational status: retired Cognitive needs: No Hearing needs: No Vision needs: Yes Physical Exam Vital Signs: Last Vital Signs Pulse 69 04/09/24 11:14 BP 118/56 L 04/09/24 11:14 BMI result Body Mass Index 26.2 Assessment & Plan Assessment & Plan (1) S/P gastric surgery: Comment: stomach CA 1998, EGD 10/2023, hiatal hernia and esophagitis Code(s): Z98.890 - Other specified postprocedural states Category: Surgical Plan: see above (2) Weight loss: Code(s): R63.4 - Abnormal weight loss Category: Medical Plan: see above Orders: Orders CT abdomen pelvis w IV con Today R63.4 - Abnormal weight loss, Z98.890 - Other specified postprocedural states Comprehensive Met. Panel Today K75.81 - Nonalcoholic steatohepatitis (LAL), R63.4 - Abnormal weight loss, Z98.890 - Other specified postprocedural states Zinc Today R63.4 - Abnormal weight loss, Z98.890 - Other specified postprocedural states TSH reflex Free T4 Today R63.4 - Abnormal weight loss Complete Blood Count Auto Diff Today R63.4 - Abnormal weight loss, Z98.890 - Other specified postprocedural states Vitamin B12 and Folate Today R63.4 - Abnormal weight loss, Z98.890 - Other specified postprocedural states Ferritin Today R63.4 - Abnormal weight loss, Z98.890 - Other specified postprocedural states Coding Level of Care Code Est Pt Level 4 (59705) Diagnoses S/P gastric surgery Z98.890 Weight loss R63.4
[2024-04-09 11:14] VITALS: BP 118/56; PULSE 69; BMI 26.2
== END 2024-04-09 12:28 | disposition home or self-care (01) ==
LOC: HO.HGI 11:11
PROVIDERS: PCP Internal Medicine; Visit Provider Internal Medicine Gastroenterology
DX: Z98.890 Other specified postprocedural states (principal); R63.4 Abnormal weight loss
CPT/HCPCS: 99214

== ENCOUNTER → 2024-04-09 11:10 | Outpatient (BNVA) | payer MEDICARE, SELFPAY | PROVIDERS: PCP Internal Medicine; Visit Provider Internal Medicine Gastroenterology | DX: K21.9 Gastro-esophageal reflux disease without esophagitis (principal); R63.4 Abnormal weight loss; R10.9 Unspecified abdominal pain; Z80.0 Family history of malignant neoplasm of digestive organs; Z98.890 Other specified postprocedural states | CPT/HCPCS: 99212 ==

== ENCOUNTER 2024-05-10 08:38 | Outpatient (REF) | payer MEDICARE, SELFPAY | END 2024-05-10 08:39 | disposition home or self-care (01) | LOC: HO.LAB 08:38 | PROVIDERS: Visit Provider Internal Medicine Gastroenterology | DX: Z13.89 Encounter for screening for other disorder (principal) ==

== ENCOUNTER 2024-06-04 12:05 | Outpatient (REF) | payer MEDICARE, SELFPAY ==
[2024-06-04 12:23] LABS: MANUAL DIFF FLAG NO
[2024-06-04 12:31] LABS: Basophils Percent Auto 0.1 % (0-2); Eosinophils Absolute Auto 0.1 X10*3/uL (0.0-0.4); Hematocrit 35.7 % (37.0-47.0); Hemoglobin 11.7 g/dl (12.0-16.0); Imm Gran Abs Auto 0.01 X10*3/uL (0.00-0.03); Imm Gran Pct Auto 0.1 % (0.0-0.4); Lymphocytes Absolute Auto 1.3 X10*3/uL (1.2-4.9); Lymphocytes Percent Auto 18.3 % (20-40); Mean Corpuscular HGB Conc 32.8 g/dl (31.0-35.0); Mean Corpuscular Hemoglobin 28.5 pg (27.0-33.0); Mean Corpuscular Volume 86.9 fL (80.0-98.0); Mean Platelet Volume 9.3 fL (9.4-12.3); Monocytes Absolute Auto 0.2 X10*3/uL (0.1-1.2); Monocytes Percent Auto 2.9 % (2-11); Neutrophils Absolute Auto 5.3 x10*3/uL (2.0-8.3); Neutrophils Percent Auto 77.6 % (45-73); Platelet Count 182 X10*3/uL (160-400); Red Blood Count 4.11 X10*6/uL (4.20-5.50); Red Cell Distribution Width 14.2 % (11.0-16.0); White Blood Count 6.9 X10*3/uL (4.8-10.8)
[2024-06-04 12:53] LABS: Blood Urea Nitrogen 18 mg/dL (9-16)
[2024-06-04 13:05] LABS: Alanine Aminotransferase 19 U/L (0-31); Alkaline Phosphatase 111 U/L (39-117); Anion Gap 15 (12-20); Aspartate Amino Transferase 30 U/L (5-31); Bilirubin Total 0.4 mg/dL (0.0-1.0); Blood Urea Nitrogen 16 mg/dL (9-16); Calcium 9.1 mg/dL (8.4-10.2); Carbon Dioxide 25 mmol/L (22-29); Chloride 106 mmol/L (96-108); Estimated Glomerular Filt Rate 59; Glucose Random 229 mg/dL (60-115); Potassium 3.8 mmol/L (3.3-5.1); Sodium 142 mmol/L (135-145); Total Protein 6.8 g/dL (6.5-8.0)
[2024-06-04 13:19] LABS: Ferritin 31 ng/mL (10-250); TSH reflex Free T4 1.31 uIU/mL (0.32-4.0)
[2024-06-04 13:22] LABS: Appearance Urine Clear; Color Urine Yellow; Glucose Urine UA Negative (Negative); Leukocyte Esterase Urine Negative (Negative); Nitrite Urine Negative (Negative); PH 5.5 (5.0-9.0); UMIC TRIGGER UACC YES; Urine Blood Small (1+) (Negative); Urine Ketones Negative (Negative); Urine Protein Negative (Neg-Trace)
[2024-06-04 13:25] LABS: Bacteria Urine None Seen (None Seen); Hyaline Casts Urine 0-2 /LPF (0-2); Squamous Epithelial Cell Urine 0-2 /HPF (0-2); WBC Urine 0-5 /HPF (0-5)
[2024-06-04 13:31] LABS: Folate 16.9 ng/mL (> or = 4.0); Vitamin B12 308 pg/mL (200-900)
[2024-06-07 20:04] LABS: Zinc 93 mcg/dL (60-130)
== END 2024-06-04 12:06 | disposition home or self-care (01) ==
LOC: HO.LAB 12:05
PROVIDERS: PCP Internal Medicine; Visit Provider Internal Medicine Gastroenterology
DX: K75.81 Nonalcoholic steatohepatitis (NASH) (principal); R63.4 Abnormal weight loss; Z98.890 Other specified postprocedural states; R19.7 Diarrhea, unspecified; K21.9 Gastro-esophageal reflux disease without esophagitis; R10.9 Unspecified abdominal pain; E61.1 Iron deficiency; R30.0 Dysuria
CPT/HCPCS: 36415; 80053; 81001; 82607; 82728; 82746; 84443; 84520; 84630; 85025

== ENCOUNTER 2024-07-09 14:36 | Outpatient (REF) | payer MEDICARE, SELFPAY ==
[2024-07-09 15:24] LABS: Appearance Urine Clear; Color Urine Yellow; Glucose Urine UA Negative (Negative); Leukocyte Esterase Urine Negative (Negative); Nitrite Urine Negative (Negative); PH 5.5 (5.0-9.0); UMIC TRIGGER UACC YES; Urine Blood Small (1+) (Negative); Urine Ketones Negative (Negative); Urine Protein Negative (Neg-Trace)
[2024-07-09 15:39] LABS: Estimated Glomerular Filt Rate > 60
[2024-07-09 16:36] LABS: Bacteria Urine Trace (None Seen); Hyaline Casts Urine 0-2 /LPF (0-2); Other Crystals Urine Present; RBC Urine 0-2 /HPF (0-2); Squamous Epithelial Cell Urine 0-2 /HPF (0-2); WBC Urine 0-5 /HPF (0-5)
== END 2024-07-09 14:37 | disposition home or self-care (01) ==
LOC: HO.LAB 14:36
PROVIDERS: PCP Internal Medicine; Visit Provider Internal Medicine Gastroenterology
DX: R19.7 Diarrhea, unspecified (principal); K21.9 Gastro-esophageal reflux disease without esophagitis
CPT/HCPCS: 36415; 81001; 82565

== ENCOUNTER → 2024-07-10 13:36 | Outpatient (BNV) | payer MEDICARE, SELFPAY | PROVIDERS: PCP Internal Medicine; Visit Provider Radiology Diagnostic Radiology | DX: K57.30 Diverticulosis of large intestine without perforation or abscess without bleeding (principal) | CPT/HCPCS: 74177 ==

== ENCOUNTER 2024-07-18 08:53 | Outpatient (AMB) | payer MEDICARE, SELFPAY ==
--- NOTE | 2024-07-18 08:59 | A.OFFPC_ITS ---
Vital Signs 07/18/24 09:00 Height 4 ft 8 in Weight 120 lb 2 oz BMI 26.9 BP 144/80 H Blood Pressure Location Lt brachial Position Sitting Respiration 17 Pulse 84 Pulse Source Pulse Oximeter Temp 97.8 F Temp Source Oral Pulse Oximetry (%) 96 Oxygen Delivery Method Room Air Intake Visit Reasons: Ear Pain Allergies azithromycin Adverse Reaction (Intermediate, Verified 04/09/24 11:14) Stomach Upset Medication List - Last Reconciled 07/18/24 by Clarissa Verduzco MD amoxicillin-pot clavulanate 875-125 mg 1 tab PO BID lansoprazole 30 mg PO DAILY meloxicam 15 mg PO DAILY Tobacco use date assessed: 07/18/24 Fall risk assessment: No Falls in past year Last assessed Fall Risk: 07/18/24 Dental Screening Dental Screen Date: 10/18/23 HPI Ear Pain HPI Details Patient presents complaining of 3 weeks of neck pain and swelling. Patient developed left-sided swelling and pain in submandibular region with radiation to left ear, sore throat and questionable swelling of the left side of tongue. Patient was seen at [facility] ER was diagnosed with left ear otitis media and possible allergic reaction to lisinopril. Patient was started on amoxicillin 500 mg twice a day, lisinopril was discontinued and amlodipine 5 mg daily started instead. Patient felt slightly better but developed right-sided submandibular swelling, pain radiating to the right ear, difficulty swallowing and opening her mouth. Patient denies fever, chills, ear discharge. [facility] Medical History Chest pain Hx of malignant neoplasm of stomach Vitamin D deficiency Rash GERD (gastroesophageal reflux disease) IBS (irritable bowel syndrome) Bilateral renal cysts Thyroid nodule HTN (hypertension) Surgical History S/P gastric surgery Hx of cholecystectomy History of appendectomy History of hernia repair Hx of endoscopy History of colonoscopy Family History Father No problems noted. Mother No problems noted. Sister No problems noted. Son No problems noted. Daughter No problems noted. Daughter No problems noted. Social History Housing: House Alcohol intake: never Patient Tobacco Use Status: Never used Tobacco e-Cigarette/Vaping Use: Never Used service: No Current occupational status: retired Cognitive needs: No Hearing needs: No Vision needs: Yes Questionnaire PHQ-9 Over the last 2 weeks, how often have you been bothered by any of the following problems? 1. Little interest or pleasure in doing things: not at all 2. Feeling down, depressed, or hopeless: not at all 3. Trouble falling or staying asleep, or sleeping too much: not at all 4. Feeling tired or having little energy: not at all 5. Poor appetite or overeating: not at all 6. Feeling bad about yourself - or that you are a failure or have let yourself or your family down: not at all 7. Trouble concentrating on things, such as reading the newspaper or watching television: not at all 8. Moving or speaking so slowly that other people could have noticed. Or the opposite - being so fidgety or restless that you have been moving around a lot more than usual: not at all 9. Thoughts that you would be better off or of hurting yourself in some way: not at all Total score: 0 Depression Screening Interpretation: Negative Depression Screening Done: Yes 13449 - PHQ-9 Billing: Yes Source: Developed by Drs. Matty Black, Noemy Olmedo, Geraldo Whitney and colleagues, with an educational joshua from [employer]. Thrive Questionnaire Date Thrive assessed: 07/18/24 I am a: Patient What is your living situation today?: I have a steady place to live Within the past 12 months, did the food you bought not last and you didn't have the money to get more?: Never true Within the past 12 months, did you worry whether your food would run out before you got money to buy more?: Never true Do you have trouble paying for medicines?: No Do you have trouble getting transportation to medical appointments?: No Do you have trouble paying your heating and electricity bill?: No Do you have trouble taking care of your child, family member or friend?: No Do you have trouble with day-to-day activities such as bathing, preparing meals, shopping, managing finances, etc.?: No Are you currently unemployed and looking for a job?: No Are you interested in more education?: No Please select the resources that you would like help with: None Currently or been in a relationship where the following occur: No concerns reported THRIVE Score: 0 AUDIT C Alcohol Use Questionnaire (AUDIT-C) 1. How often do you have a drink containing alcohol?: Never 3. How often do you have six or more drinks on one occasion?: Never Total Score: 0 Score Reviewed/Action Taken: Yes CASSIA-7 AMB Questionnaire CASSIA-7 Date CASSIA - 7 assessed: 07/18/24 Feeling nervous, anxious, or on edge: 0 = Not at all Not being able to stop or control worryin = Not at all Worrying too much about different things: 0 = Not at all Trouble relaxin = Not at all Being so restless that it is hard to sit still: 0 = Not at all Becoming easily annoyed or irritable: 0 = Not at all Feeling afraid as if something awful might happen: 0 = Not at all Total CASSIA-7 score (0-4 normal; 5-9 mild; 10-14 moderate; 15-21 severe): 0 Source: Developed by Drs. Matty Black, Noemy Olmedo, Geraldo Whitney and colleagues, with an educational joshua from [employer]. CASSIA-7 Assessment Billing CASSIA-7 Assessment Tool: CASSIA-7 Assessment 56711 Review of Systems Const All systems reviewed & are unremarkable except as noted in HPI and below Eyes Reports no additional complaints ENT Reports no additional complaints Card Reports no additional complaints Resp Reports no additional complaints GI Reports no additional complaints Reports no additional complaints Physical exam (Primary Care) Vital Signs: Last Vital Signs Temp 97.8 F 07/18/24 09:00 Pulse 84 07/18/24 09:00 Resp 17 07/18/24 09:00 BP 144/80 H 07/18/24 09:00 Pulse Ox 96 07/18/24 09:00 Oxygen Delivery Method Room Air 07/18/24 09:00 BMI result Body Mass Index 26.9 Tobacco/Smoking Status: Tobacco use Status Tobacco use date assessed 07/18/24 07/18/24 09:07 Patient Tobacco Use Status Never used Tobacco 07/18/24 08:59 e-Cigarette/Vaping Use Never Used 07/18/24 08:59 PHQ-9: PHQ-9 Score PHQ-9: Total score 0 07/18/24 09:07 Depression Screening Interpretation: Negative Thrive Assessment: Date of Thrive Assessment Date Thrive assessed 07/18/24 07/18/24 09:07 Currently or been in a relationship where the following occur: No concerns reported Const General: ill appearing HENMT Other: right submandibular salivary gland tender and swollen, and some swelling of the left submandibular salivary gland, no adenopathy neck is supple Head: Yes normal to inspection Ears: unable to visualize TM (Cerumen impaction in both ears) General nose exam: Normal external nose present Mouth: lip normal Eyes General: appearance normal, both eyes and all related structures Neck Neck: Yes supple Resp Effort & Inspection: normal respiratory effort Auscultation: clear to auscultation bilaterally Cardio Rhythm: regular rhythm Heart sounds: S1 normal heart sound present and S2 normal heart sound present Coding Level of Care Code Est Pt Level 3 (40786) Diagnoses Sialoadenitis of submandibular gland K11.20 HTN (hypertension) I10 Additional Codes CASSIA-7 Assessment Billing - CASSIA-7 Assessment Tool: CASSIA-7 Assessment 61269 ([id number]) PHQ-9 - 64090 - PHQ-9 Billing: Yes ([id number]) Assessment & Plan Assessment & Plan (1) Sialoadenitis of submandibular gland: Code(s): K11.20 - Sialoadenitis, unspecified Category: Medical Plan: Augmentin 875 b.i.d. for 10 days and meloxicam prescribed. Supportive care including increasing fluid intake discussed with the patient follow-up in 1 week (2) HTN (hypertension): Code(s): I10 - Essential (primary) hypertension Category: Medical Plan: Continue amlodipine Medications: New amoxicillin-pot clavulanate 875-125 mg 1 tab PO BID 20 tabs 0RF meloxicam 15 mg PO DAILY 14 tabs 0RF amlodipine 5 mg PO DAILY 30 tabs 1RF Discontinued lisinopril-hydrochlorothiazide 20-12.5 mg Discontinued Reason: Doctor's Order 0.5 tabs PO DAILY 45 tabs 3RF
--- NOTE | 2024-07-18 08:59 | MHC.PC.OV ---
Vital Signs 07/18/24 09:00 Height 4 ft 8 in Weight 120 lb 2 oz BMI 26.9 BP 144/80 H Blood Pressure Location Lt brachial Position Sitting Respiration 17 Pulse 84 Pulse Source Pulse Oximeter Temp 97.8 F Temp Source Oral Pulse Oximetry (%) 96 Oxygen Delivery Method Room Air Intake Visit Reasons: Ear Pain Allergies azithromycin Adverse Reaction (Intermediate, Verified 04/09/24 11:14) Stomach Upset Tobacco use date assessed: 10/18/23 Dental Screening Dental Screen Date: 10/18/23 HPI Ear Pain HPI Details Pt PFSH Medical History Chest pain Hx of malignant neoplasm of stomach Vitamin D deficiency Rash GERD (gastroesophageal reflux disease) IBS (irritable bowel syndrome) Bilateral renal cysts Thyroid nodule HTN (hypertension) Surgical History S/P gastric surgery Hx of cholecystectomy History of appendectomy History of hernia repair Hx of endoscopy History of colonoscopy Family History Father No problems noted. Mother No problems noted. Sister No problems noted. Son No problems noted. Daughter No problems noted. Daughter No problems noted. Social History Housing: House Alcohol intake: never Patient Tobacco Use Status: Never used Tobacco e-Cigarette/Vaping Use: Never Used service: No Current occupational status: retired Cognitive needs: No Hearing needs: No Vision needs: Yes Questionnaire Thrive Questionnaire Date Thrive assessed: 10/18/23 AUDIT C Alcohol Use Questionnaire (AUDIT-C) 1. How often do you have a drink containing alcohol?: Never 3. How often do you have six or more drinks on one occasion?: Never Total Score: 0 CASSIA-7 AMB Questionnaire CASSIA-7 Date CASSIA - 7 assessed: 10/18/23 Source: Developed by Drs. Matty Black, Noemy Olmedo, Geraldo Whitney and colleagues, with an educational joshua from [employer]. Physical exam (Primary Care) Vital Signs: Last Vital Signs Temp 97.8 F 07/18/24 09:00 Pulse 84 07/18/24 09:00 Resp 17 07/18/24 09:00 BP 144/80 H 07/18/24 09:00 Pulse Ox 96 07/18/24 09:00 Oxygen Delivery Method Room Air 07/18/24 09:00 BMI result Body Mass Index 26.9 Tobacco/Smoking Status: Tobacco use Status Tobacco use date assessed 07/18/24 07/18/24 09:07 Patient Tobacco Use Status Never used Tobacco 07/18/24 08:59 e-Cigarette/Vaping Use Never Used 07/18/24 08:59 PHQ-9: PHQ-9 Score PHQ-9: Total score 0 07/18/24 09:07 Thrive Assessment: Date of Thrive Assessment Date Thrive assessed 07/18/24 07/18/24 09:07 Coding
[2024-07-18 09:00] VITALS: BP 144/80; PULSE 84; RESP 17; TEMP 36.6; O2SAT 96; BMI 26.9
--- OUTSIDE RECORDS SUMMARY | 2024-07-18 09:46 | XMS_ITS ---
Author Organization [facility], Address [address] [place] [address] Care Team Providers Care Gyroscope Repairer Name Role Phone Aditi Montgomery [facility] [phone] ALLERGIES, ADVERSE REACTIONS, ALERTS Substance Code Code System Type Reaction Severity Status Start Date End Date No known non-drug allergies RxNorm Other substance lakeisha rgy () 1 No known drug allergies RxNorm Other substance allergy () 1 No known allergies RxNorm Other substance allergy () 1 MEDICATIONS Medication Code Code System Start Date Stop Date Route Dosage Directions Fill Instructions amoxicillin 274198 RxNorm 07/10/2024 oral 1 lisinopril RxNorm 2 PROBLEMS Problem Name Code Code System Start Date End Date Stat us Hypertension 11694863 [facility] 04/22/2022 Resolv ed Otalgia, left ear 87518408 [facility] 04/22/2022 R esolved Otalgia, left ear 651526831 [facility] 07/10/2024 Ac tive Otitis media, unspecified, left ear 2833786974271811 [facility] 07/10/2024 Active ENCOUNTERS Encounter Diagnosis Code Code System Date Stat us Otalgia, left ear 152578272 [facility] 07/10/2024 Active Otitis media, unspecified, left ear 7866313082496109 [facility] 07/10/2024 Active IMMUNIZATIONS * None VITAL SIGNS Code Code System Vitals Name Date Value and Un its 8462-4 [facility] Blood Pressure-Diastolic 07/10/2024 80 mmHg 8480-6 [facility] Blood Pressure-Systolic 07/10/2024 1 36 mmHg 8867-4 [facility] Heart Rate 07/10/2024 97 /min 9279-1 [facility] Respiratory Rate 07/10/2024 16 /min 8310-5 [facility] Body Temperature 07/10/2024 99.4 F 18967-3 [facility] Oxygen Saturation 07/10/2024 94 % SOCIAL HISTORY * None PROCEDURES * None MEDICAL EQUIPMENT * Patient has no history of implantable devices ASSESSMENT * None TREATMENT PLAN Type Description Date MEDICATION Take 500 mg capsule 07/10/2024 APPOINTMENT If not feeling nevaeh r in 3 day(s), please see your primary care physician. If you do not have a primary care physician, please return to this clinic. 07/10/2024 Lab Tests None GOALS * None HEALTH CONCERNS * No Health Concerns FUNCTIONAL AND COGNITIVE STATUS * None CONSULTATION NOTES * None DISCHARGE SUMMARY NOTES * None HISTORY AND PHYSICAL NOTES * Reason for visit - Injury Patient: LA MCGINNIS, Sex: F (ID# [id number]) Date of : 1945 (79 years) Visit on 07/10/2024 (Log# [id number]) Historian: Self Triage Notes: patient seen in er on tuesday for swelling of her neck and tongue, pt daughter reports having a covid flu test done with negative results in hospital, also reports hx of chronic sinusitis, pt here today with a throbbing pain in her right ear, still has uri sx but has main concern of ear pain History of Present Illness: Complaint: The patient presents with a chief complaint of ear pain of the left ear since Sat, Jul 07, 2024. Ithas the following quality: throbbing. Context - Initial History: The patient reports it was not the result of an injury. The patient reports that the onset was: not associated with loud noise; not associated with blunt force trauma; not associated with foreign body in ear; not associated with recent air travel; ASSOCIATED WITH RECENT ILLNESS; not associated with recent procedure. The patient also reports fever as an abnormal symptom related to the complaint. Review of Systems: The patient complains of the following recent symptoms: Constitutional: fever ENT and Mouth: ear pain: See HPI Allergies: patient specifies no known allergies Medications: patient specifies no active medications Problem List: patient specifies no active problems Surgeries: Abdominal/Pelvic surgery: Gastric band surgery. Vitals: 04:56 PM (07/10/2024)Temperature: 99.4 ?F, Pulse: 97 BPM, BP: 136/80, Respirations: 16/min, O2 Saturation: 94%, O2 Delivery: RAFirst entered 07/10/2024 16:56 by Issac Lawrence Physical Exam: The following exam elements were documented to be abnormal: ENT: abnormality of tympanic membrane(s) noted. Right tympanic membrane: intact, translucent in appearance, normal in position, no air-fluid level,tympanostomy tube absent. Left tympanic membrane: intact, abnormal color, red, not injected, abnormal in position, moderatelybulging TM, no air-fluid level, tympanostomy tube absent. The following exam elements were documented to be normal: ENT: oropharynx and tonsils without swelling, erythema, lesion, exudate. ENT: external ear canal normal bilaterally. General: well developed, well nourished, and in no apparent distress. Diagnoses: Otalgia, left ear (H92.02) Otitis media, unspecified, left ear (H66.92) Medication Orders: Prescribed: amoxicillin 500 mg capsule; Take 1 capsule (oral) 2 times per day for 10 days; Total Qty: 20 (twenty) capsule; 0 refill(s); Substitutions allowed; Earliest Fill Date: 07/10/2024ePrescribed at 4:59 PM on 07/10/[address]-CPrescription sent to [facility] #[id number] (P: [phone] F: [phone]) [phone] [place], [address] Discharge Instructions: Earache, Adult Otitis Media, Adult Plan: If not feeling better in 3 day(s), please see your primary care physician. If you do not have a primary care physician, please return to this clinic. Visit discharged at 07/10/2024 5:00:17 PM by Aditi Montgomery PA-C Signed electronically by Aditi Montgomery PA-C on 07/10/2024 5:00:17 PM IMAGING NOTES * None LABORATORY REPORT NARRATIVE NOTES * None PATHOLOGY REPORT NARRATIVE NOTES * None PROGRESS NOTES * None
== END 2024-07-18 09:35 | disposition home or self-care (01) ==
PROVIDERS: PCP Internal Medicine; Visit Provider Internal Medicine
DX: K11.20 Sialoadenitis, unspecified (principal); I10 Essential (primary) hypertension

== ENCOUNTER → 2024-07-18 08:53 | Outpatient (BNVA) | payer MEDICARE, SELFPAY | PROVIDERS: PCP Internal Medicine; Visit Provider Internal Medicine | DX: K11.20 Sialoadenitis, unspecified (principal); I10 Essential (primary) hypertension | CPT/HCPCS: 96127; 99212 ==

== ENCOUNTER 2024-08-01 08:06 | Outpatient (AMB) | payer MEDICARE, SELFPAY ==
--- NOTE | 2024-08-01 08:07 | MHC.PC.OV ---
Vital Signs 08/01/24 08:08 Height 4 ft 8 in Weight 120 lb BMI 26.9 BP 120/74 Blood Pressure Location Rt brachial Position Sitting Respiration 18 Pulse 88 Pulse Source Pulse Oximeter Temp 98.0 F Temp Source Oral Pulse Oximetry (%) 96 Oxygen Delivery Method Room Air Intake Visit Reasons: Meds review Intake Note: Pt is here today for a follow up visit. Allergies azithromycin Adverse Reaction (Intermediate, Verified 08/01/24 08:11) Stomach Upset Medication List - Last Reconciled 08/01/24 by Clarissa Verduzco MD amlodipine 5 mg PO DAILY lansoprazole 30 mg PO DAILY meloxicam 15 mg PO DAILY Tobacco use date assessed: 07/18/24 Dental Screening Dental Screen Date: 08/01/24 Did you have a dental visit in the last 12 months?: Yes Did you have a dental problem in the last 6 months where you did not have access to dental care?: No Was dental information given to patient?: Patient has dentist HPI Meds review HPI Details Patient presents for the follow-up of right facial pain and swelling resolved after treatment with Augmentin and prednisone. Patient reports persistent numbness of the right cheek and right-sided facial weakness but getting slightly better. Patient reports intermittent sharp discomfort in over right TMJ area lasting a few minutes. She had an appointment with the ENT an MRI of face and neck was ordered to be done today. Patient had an episode of lightheadedness and feeling weak after taking 5 mg of amlodipine. She reports low blood pressure readings in the morning but then increasing in the afternoon. she has been taking amlodipine at 13:00. Patient had episode of left shoulder pain that lasted few hours a week ago. [facility] Medical History Chest pain Hx of malignant neoplasm of stomach Vitamin D deficiency Rash GERD (gastroesophageal reflux disease) IBS (irritable bowel syndrome) Bilateral renal cysts Thyroid nodule HTN (hypertension) Surgical History S/P gastric surgery Hx of cholecystectomy History of appendectomy History of hernia repair Hx of endoscopy History of colonoscopy Family History Father No problems noted. Mother No problems noted. Sister No problems noted. Son No problems noted. Daughter No problems noted. Daughter No problems noted. Social History Housing: House Alcohol intake: never Patient Tobacco Use Status: Never used Tobacco e-Cigarette/Vaping Use: Never Used service: No Current occupational status: retired Cognitive needs: No Hearing needs: No Vision needs: Yes Questionnaire Thrive Questionnaire Date Thrive assessed: 08/01/24 I am a: Patient What is your living situation today?: I have a steady place to live Within the past 12 months, did the food you bought not last and you didn't have the money to get more?: Never true Within the past 12 months, did you worry whether your food would run out before you got money to buy more?: Never true Do you have trouble paying for medicines?: No Do you have trouble getting transportation to medical appointments?: No Do you have trouble paying your heating and electricity bill?: No Do you have trouble taking care of your child, family member or friend?: No Do you have trouble with day-to-day activities such as bathing, preparing meals, shopping, managing finances, etc.?: No THRIVE Score: 0 CASSIA-7 AMB Questionnaire CASSIA-7 Date CASSIA - 7 assessed: 07/18/24 Source: Developed by Drs. Matty Black, Noemy Olmedo, Geraldo Whitney and colleagues, with an educational joshua from [employer] Review of Systems Const All systems reviewed & are unremarkable except as noted in HPI and below Eyes Reports no additional complaints ENT Reports no additional complaints Card Reports no additional complaints Resp Reports no additional complaints GI Reports no additional complaints Reports no additional complaints Physical exam (Primary Care) Vital Signs: Last Vital Signs Temp 98.0 F 08/01/24 08:08 Pulse 88 08/01/24 08:08 Resp 18 08/01/24 08:08 BP 120/74 08/01/24 08:08 Pulse Ox 96 08/01/24 08:08 Oxygen Delivery Method Room Air 08/01/24 08:08 BMI result Body Mass Index 26.9 Tobacco/Smoking Status: Tobacco use Status Tobacco use date assessed 07/18/24 08/01/24 08:08 Patient Tobacco Use Status Never used Tobacco 08/01/24 08:08 e-Cigarette/Vaping Use Never Used 08/01/24 08:08 Thrive Assessment: Date of Thrive Assessment Date Thrive assessed 08/01/24 08/01/24 08:08 Const General: no acute distress HENMT Other: There is a slight asymmetry of the right face, but no muscle weakness on the right Head: Yes normal to inspection Ears: TM's normal bilaterally General nose exam: Normal external nose present Face and sinus: No sinus tenderness Mouth: Normal oral and palatal mucosa present Throat: Yes posterior oropharynx normal Eyes General: appearance normal, both eyes and all related structures Conjunctivae: conjunctivae normal Pupils: Equal, round and reactive pupils present Direct Ophthalmoscopy: normal light reflex Neck Neck: Yes no lymphadenopathy and Yes supple Resp Effort & Inspection: normal respiratory effort Auscultation: clear to auscultation bilaterally Cardio Rhythm: regular rhythm Heart sounds: S1 normal heart sound present and S2 normal heart sound present GI Inspection: Yes normal to inspection Palpation (GI): Soft to palpation Neuro Cranial nerves: Yes Equal, round and reactive pupils present Coding Level of Care Code Est Pt Level 3 (99150) Diagnoses Numbness and tingling of right side of face R20.0; R20.2 HTN (hypertension) I10 Assessment & Plan Assessment & Plan (1) Numbness and tingling of right side of face: Code(s): R20.0 - Anesthesia of skin; R20.2 - Paresthesia of skin Category: Medical Plan: Patient will have an MRI today and she follows up with ENT (2) HTN (hypertension): Code(s): I10 - Essential (primary) hypertension Category: Medical Plan: Decrease amlodipine to 2.5 mg a day. Follow-up in 1 month Medications: New amlodipine 2.5 mg PO DAILY 30 tabs 2RF meloxicam 7.5 mg PO DAILY 30 tabs 0RF Discontinued amlodipine Discontinued Reason: Doctor's Order 5 mg PO DAILY 30 tabs 1RF
[2024-08-01 08:08] VITALS: BP 120/74; PULSE 88; RESP 18; TEMP 36.7; O2SAT 96; BMI 26.9
--- OUTSIDE RECORDS SUMMARY | 2024-08-01 08:20 | XMS_ITS | Data Portability ---
Author Organization [place] - [facility], Allergy Address [address] [address] Care Team Providers Care Steam Pan Sponger Name Role Phone SIERRA MARIAH Primary Care Provider [phone] Assessment Encounter Date Assessment Date Assessment LastModified by Organization Details LastModified Time 07/23/2024 07/23/2024 79 year old female with right parotid fullness and right facial weakness at the corner of the mouth. Recommend that we obtain a CT neck to further evaluate the parotid. TMs intact and middle ear spaces appear well aerated today. Given her complaint of some diminished hearing and facial weakness, audiometric testing was obtained. On the right ear she had mild sloping to severe sensorineural hearing loss. On the left she had normal sloping to severe sensorineural hearing loss. Type A tympanometry bilaterally. Her hearing is slightly worse compared to prior audiogram from 06/11/21. Recommend continued use of amplification. Reassurance provided no sign of ear infection at this time. Patient seen by Dr. Nguyen. Quinn Jimenez PA-C functioned as a scribe for this visit. sri Not available 07/24/2024 08:39:51 Plan of Treatment Reminders Order Date Submit Date Provider Last Modified By Organization Details Last Modified Time Details Appointments None recorded. Lab None recorded. Referral None recorded. Procedures None recorded. Surgeries None recorded. Imaging CT, neck, soft tissue, w/ contrast - labs at [facility] 2024 025 [facility] ([facility]), [address] [facility], [place], [address], 18:37:05 Medication Orders None recorded. Patient TargetsNo targets recorded. Patient InstructionsNo instructions recorded. Reason for Referral None Reported. Results Created Date Observation Date Name Description Value Unit Range Abnormal Flag Note LastModifiedBy Organization Detail LastModifiedTime 07/23/19 25 audio gram No observ ation record ed. BARCODE Not Available 2024 15:14:55 Result Notes None recorded. Problems Name Problem SNOMED Code Status Onset Date Resolution Date Notes Provider Name and Address Organization Details Recorded Time Chronic rhinitis 17163298 Active 2021 Chronic rhinitis ; Note: Date Diagnose d: 2 5:09 PM (J31.0) Not Available [facility] 4 03:05:56 Viral screenin g Active 2021 Encounte r for screenin g for COVID-19 ; Note: Date Diagnose d: 2 5:09 PM (Z11.52) Not Available [facility] 4 03:05:55 Impacted cerumen in right ear 59324204086 79338 Active 2022 Impacted cerumen, right ear; Note: Date Diagnose d: 3 12:20 PM (H61.21) Not Available [facility] 4 03:05:55 Sensorin eural hearing loss of bilatera l ears 492105612 Active 2018 Sensorin eural hearing loss, bilatera l; Note: Date Diagnose d: 9 12:02 PM (H90.3) Not Available [facility] 4 03:05:57 Bilatera l temporom andibula r joint pain 43707014614 693118 Active 2022 Arthralg ia of bilatera l temporom andibula r joint; Note: Date Diagnose d: 3 12:20 PM (M26.623 ) Not Available [facility] 4 03:05:55 Otalgia of right ear 9115020649 Active 2020 Otalgia, right ear; Note: Date Diagnose d: 1 12:38 PM (H92.01) Not Available [facility] 4 03:05:56 Acute sinusiti s 60397788 Completed 202101/06/2024 Other acute sinusiti s; Note: Date Diagnose d: 12/08/2021 4:03 PM (J01.80) Not Available [facility] 4 03:05:58 Deviated nasal septum 062149139 Active 2022 Deviated nasal septum; Note: Date Diagnose d: 3 1:44 PM (J34.2) Not Available [facility] 4 03:05:56 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 38632325 Active 2024 QUINN JIMENEZ PA-C [address], [place], [address] , [place] - [facility] 5 14:37:41 Weakness of right facial muscle 036388051 Active 2024 QUINN JIMENEZ PA-C [address], [place], [address] , [place] - [facility] 5 14:38:34 Neoplasm of parotid gland 366559915 Active 2024 QUINN JIMENEZ PA-C [address], [place], [address] , [place] - [facility] 5 18:36:01 Localize d enlarged lymph nodes 450185377 Active 2024 QUINN JIMENEZ PA-C [address], [place], [address] , [place] - [facility] 5 18:36:01 Mass of head and/or neck 523289880 Active 2024 QUINN JIMENEZ PA-C [address], [place], [address] , [place] - [facility] 5 18:36:01 Impacted cerumen of bilatera l ears 10403280114 52121 Active 2024 GREGG MATA MD [address], [place], [address] , [place] - [facility] 5 08:39:39 Problem Notes None recorded. Procedures Surgical History Date Name Laterality Status Provider Name and Address Organization Details Recorded Time 07/23/19 25 Cerumen removal without microscope bilat completed QUINN JIMENEZ PA-C [address] [place] [address], [place], [address], [place] - [facility] 07/23/2024 18:39:10 07/23/19 25 Tympanometry (31749) completed Corie Brandon [place] - [facility] 07/23/2024 14:11:37 07/23/19 25 [employer] (86634) completed Corie Brandon [facility] 07/23/2024 14:11:43 Imaging Results Imaging Date Name Status LastModified by Organiz ation Details LastModified Time 07/23/2024 audiogram completed BARCODE Information no t available 07/23/2024 15:14:55 Procedure Notes None recorded. Medical Equipment None Reported. Medications Name Sig Start Date Stop Date Status Note LastModified by Organization Details LastModified Time amoxicilli n 500 mg capsule TAKE 1 CAPSULE BY MOUTH TWICE A DAY FOR 10 DAYS active Not Available Not Available No t Available doxycyclin e hyclate 100 mg capsule by mouth 2021 active Medicatio n ID: [id number] Pr escribed By Name: JAZLYN Karimi Name: doxycycli ne hyclate S end Method: E-Prescri bed Subs Allowed: subs OK Specia l Instructi on: Take 1 PO bid X 2 weeks Med icationGe nericName : doxycycli ne hyclate Not Available Not Available Not Available cetirizine 10 mg tablet TAKE 1 TABLET BY MOUTH DAILY NEEDED FOR ALLERGY SYMPTOMS active Not Available Not Available No t Available lisinopril 20 mg-hydroch lorothiazi de 12.5 mg tablet TAKE 1/2 TABLET BY MOUTH DAILY active Not Available Not Available No t Available valacyclov ir 1 gram tablet TAKE 1 TABLET ORALLY 2 TIMES A DAY active Not Available Not Available No t Available meloxicam 15 mg tablet TAKE 1 TABLET BY MOUTH DAILY. active Not Available Not Available No t Available prednisone 20 mg tablet TAKE 1 TABLET BY MOUTH EVERY DAY active Not Available Not Available No t Available ciprofloxa eber 250 mg tablet TAKE 1 TABLET BY MOUTH TWICE A DAY active Not Available Not Available No t Available amlodipine 5 mg tablet TAKE 1 TABLET BY MOUTH EVERY DAY active Not Available Not Available No t Available acetaminop hen 500 mg tablet 1-2 tablet by mouth 2018 active Medicatio n ID: [id number] Du ration Value: 14 Brand Name: acetamino phen Send Method: E-Prescri bed Subs Allowed: subs OK Medica tionGener icName: acetamino phen Not Available Not Available Not Available ofloxacin 0.3 % ear drops APPLY 10 DROPS TO THE RIGHT EAR CANAL DAILY FOR 7 DAYS active Not Available Not Available No t Available baclofen 10 mg tablet TAKE 1 TABLET BY MOUTH AT BEDTIME active Not Available Not Available No t Available lisinopril 10 mg tablet 2018 active Medicatio n ID: [id number] Br and Name: lisinopri l Send Method: E-Prescri bed Subs Allowed: subs OK Medica tionGener icName: lisinopri l Not Available Not Available Not Available lansoprazo le 30 mg capsule,de layed release TAKE 1 CAPSULE BY MOUTH DAILY active Not Available Not Available No t Available ipratropiu m bromide 21 mcg (0.03 %) nasal spray INHALE 2 SPRAYS IN EACH NOSTRIL THREE TIMES A DAY DIRECTED active Not Available Not Available No t Available amoxicilli n 875 mg-potassi um clavulanat e 125 mg tablet TAKE 1 TABLET BY MOUTH TWICE A DAY active Not Available Not Available No t Available Acid Manager Rn Case (cimetidin e) 200 mg tablet 2018 active Medicatio n ID: [id number] Br and Name: Acid Manager Rn Case (cimetidi ne) Send Method: E-Prescri bed Subs Allowed: subs [place] [facility] Acid Manager Rn Case (cimetidi ne) Not Available Not Available Not Available Readi-Cat 2 2 % (w/v) oral suspension DRINK 1 BOTTLE 2 HOURS PRIOR TO APPOINTME NT AND TAKE 1 BOTTLE 1 HOUR PRIOR TO APPOINTME NT active Not Available Not Available No t Available Vitals Date Recorded Body weight Body mass index (BMI) Body height Provider Name and Address Organization Details Last Updated DateTime 07/23/2024 79814.08 g 26.9 kg/m2 142.24 cm Nazia Antunez [place] - [facility] 07/23/2024 13:14:54 Social History None recorded. Functional Status None recorded. Mental Status None recorded. Family History Nothing Reported. Medical History No medical history recorded. Gynecological HistoryNo gynecological history recorded. Obstetrics History GPAL:G 0 P 0 0 0 0 Past Encounters Encounter ID Performer Location Encounter Start Date Encounter Closed Date Diagnosis/Indication Diagnosis SNOMED-CT Code Diagnosis ICD10 Code Diagnosis Note [id number] GREGG MATA MD [facility] [address] [address] 07/23/2024 13:01:34 07/23/2024 17:03:27 Sensorineural hearing loss of bilateral ears 316224757 H90.3 Audiologic al evaluation results: Right ear: {{Normal N ormal through 2 kHz Mild* Moderate M oderately- severe Sev ere Profou nd}} {{hearing hearing. s loping to a mild slopi ng to a moderate s loping to moderately severe slo ping to severe* sl oping to profound f lat high frequency low frequency mid frequency cookie bite cm curve}} {{with sen sorineural hearing loss with* cond uctive hearing loss with mixed hearing loss with}} {{excellen t good silva r poor no measurable *}} word recognitio n. Left ear: {{Normal* Normal through 2 kHz Mild M oderate Mo derately-s evere Eliana re Profoun d}} {{hearing hearing. s loping to a mild slopi ng to a moderate s loping to moderately severe slo ping to severe* sl oping to profound f lat high frequency low frequency mid frequency cookie bite cm curve}} {{with sen sorineural hearing loss with* cond uctive hearing loss with mixed hearing loss with}} {{excellen t good silva r poor no measurable *}} word recognitio n.SRT and WRS could not be measure due to language barriers. Tympanomet ry: Right Ear:{{Type A Type As* Type Ad Type C Type C, shallow & rounded Ty pe B Type B with large volume Cou ld not maintain a hermetic seal}} Left Ear:{{Type A Type As* Type Ad Type C Type C, shallow & rounded Ty pe B Type B with large volume Cou ld not maintain a hermetic seal}} Neoplasm o f uncertain behavior of parotid gland 28889997 D37.030 Weakness o f right facial muscle 354747551 R29.810 Impacted c erumen of bilateral ears 2596518302 166173 H61.23 Health Concerns Section Related Observation LastModified by Organization Detai ls LastModified Time None Recorded Concern Status LastModified by Organization Details LastModified Time None Recorded Advance Directives Directive None Recorded Payers Encounter Date Sequence Insurance Name Policy Number Policy Treviño Covered Member ID Treviño Member ID Guarantor Name 07/23/2024 1 [facility] Negra Huff [id number] Negra Huff Notes Date Note Type Note Provider Name and Address Organization Details Recorded Time 07/23/2024 text/html 79 year old tara le seen with her daughter who provides the history and occasionally helps translate to [employer] for her mother. On July 08 she developed left salivary gland swelling, tongue swelling and pressure in the left ear. She felt that she had some associated diminished hearing. She presented to the [facility] and they felt that she may be experiencing allergy to Lisinopril and she discontinued this. At that time she had no imaging. She had only a slightly elevated WBC. She continued to have pain and was seen at urgent care on July 10 diagnosed with left ear infection and prescribed both antibiotic drops and Amoxicillin. No improvement. Then she developed some pain on the right side. On July 14 she was again seen at [facility] for right ear pain and also pain involving the entire right half of the face. She was found to have right cerumen impaction. No further treatment. On July 16 she saw her PCP who prescribed Augmentin for what she felt was right sided salivary gland infection. No improvement. On July 18 she was seen by her PCP again because she developed some right facial weakness. She had difficulty closing the right eyelid and had developed numbness on the right side of the face and inside the right ear. Her PCP prescribed Prednisone and Meloxicam for the pain. Now her pain is much better but she still notices facial weakness. She does report some right sided pain with eating. She never had blisters. It sounds like her PCP may have also prescribed Valcyclovir in case this was Shingles. She does use hearing aids but does not have them with her today. GREGG NGUYEN MD [address] [place] [address], [address], [facility] - [facility] 07/24/2024 08:40:17 OBGyn Episode No OBEpisode recorded.
--- OUTSIDE RECORDS SUMMARY | 2024-08-01 08:20 | XMS_ITS ---
Author Organization [facility], Address [address] [place] [address] Care Team Providers Care Casting Plug Assembler Name Role Phone Aditi [facility] [phone] ALLERGIES, ADVERSE REACTIONS, ALERTS Substance Code Code System Type Reaction Severity Status Start Date End Date No known drug allergies RxNorm Other substance allergy () 1 No known non-drug allergies RxNorm Other substance lakeisha rgy () 1 No known allergies RxNorm Other substance allergy () 1 MEDICATIONS Medication Code Code System Start Date Stop Date Route Dosage Directions Fill Instructions amoxicillin 484384 RxNorm 07/10/2024 oral 1 lisinopril RxNorm 2 PROBLEMS Problem Name Code Code System Start Date End Date Stat us Hypertension 66746565 [facility] 04/22/2022 Resolv ed Otalgia, left ear 73706598 [facility] 04/22/2022 R esolved Otalgia, left ear 008549084 [facility] 07/10/2024 Ac tive Otitis media, unspecified, left ear 8951547330866713 [facility] 07/10/2024 Active ENCOUNTERS Encounter Diagnosis Code Code System Date Stat us Otalgia, left ear 529094638 [facility] 07/10/2024 Active Otitis media, unspecified, left ear 0948993385669673 [facility] 07/10/2024 Active IMMUNIZATIONS * None VITAL SIGNS Code Code System Vitals Name Date Value and Un its 8462-4 [facility] Blood Pressure-Diastolic 07/10/2024 80 mmHg 8480-6 [facility] Blood Pressure-Systolic 07/10/2024 1 36 mmHg 8867-4 [facility] Heart Rate 07/10/2024 97 /min 9279-1 [facility] Respiratory Rate 07/10/2024 16 /min 8310-5 [facility] Body Temperature 07/10/2024 99.4 F 33977-9 [facility] Saturation 07/10/2024 94 % SOCIAL [...] Injury Patient: LA MCGINNIS, Sex: F (ID# [id number]) Date of : 1945 (79 years) Visit on 07/10/2024 (Log# [id number]) Historian: Self Triage Notes: patient seen in [...] on 07/10/[address]-CPrescription sent to [facility]/pharmacy #[id number] (P: [phone] F: [phone]) [phone] [place], [address] Discharge Instructions: Earache, Adult Otitis Media, Adult [...]
== END 2024-08-01 08:46 | disposition home or self-care (01) ==
PROVIDERS: PCP Internal Medicine; Visit Provider Internal Medicine
DX: R20.0 Anesthesia of skin (principal); R20.2 Paresthesia of skin; I10 Essential (primary) hypertension

== ENCOUNTER → 2024-08-01 08:06 | Outpatient (BNVA) | payer MEDICARE, SELFPAY | PROVIDERS: PCP Internal Medicine; Visit Provider Internal Medicine | DX: R20.0 Anesthesia of skin (principal); R20.2 Paresthesia of skin; I10 Essential (primary) hypertension | CPT/HCPCS: 99212 ==

== ENCOUNTER 2024-08-06 10:20 | Outpatient (AMB) | payer MEDICARE, OTHER, SELFPAY ==
--- NOTE | 2024-08-06 10:21 | MHC.OFFVIS ---
Vital Signs 08/06/24 10:26 Height 4 ft 3 in Weight 116 lb 13.52 oz BMI 31.6 BP 137/73 Blood Pressure Location Lt brachial Position Sitting Pulse 73 Intake Visit Reasons: 4 months f/u Intake Note: Negra presents in the office as a follow up. CC: States that she had a CT scan and here for results. Allergies azithromycin Adverse Reaction (Intermediate, Verified 08/06/24 10:27) Stomach Upset HPI HPI 4 months f/u: Details: 79-year-old female with a history gastric cancer s/p partial gastrectomy 1998 BEING seen for f/u RECAP: Seen initially with increased acid reflux [place] [facility] [place] had refused an EGD, as well as PPI for acid reflux. Barium swallow was performed instead ===>severe reflux, no masses . She was prescribed nexium [place] [facility] unclear if she was going to take it EGD: 01/2023 Findings: Larynx:normal Esophagus: GE junction at 30 cm, diaphragm hiatus at 33 cm, consistent with 3 cm sliding hiatal hernia, erosive esophagitis noted at GEJ with bogginess and congestion, bx taken from here and distal, proximal esophagus. LES was also lax. Stomach: Patchy gastric erythema. Biopsies were obtained. Grade 2 flap valve on retroflexed examination of the cardia. Partial gastrectomy noted Small bowel--normal Intervention: Biopsies as noted above Impression/Findings: hiatal hernia erosive esophagitis lax LES PLAN: GERD precautions PPI compliance carafate prn Rept EGD: 10/27 hiatal hernia erosive esophagitis lax LES path: inflammation GEJ, distal esophagus CT 07/31- pancreas atrophy, no other major findings INTERIM: she has non specific symptoms she has lower abdominal discomfort, heaviness weight is stable appetite is good no n/v Ct reviewed and constipation noted she has atherosclerosis of aorta EXAM: GENERAL: The patient is well developed and nontoxic. VITAL SIGNS:see workflow HEENT: Nonicteric sclerae, PERRLA, EOMI. Oropharynx clear. Moist mucous membranes. Conjunctivae appear well perfused. No thyroid mass. CHEST: Chest wall is nontender. HEART: Regular rate and rhythm without murmurs. LUNGS: Clear to auscultation bilaterally. ABDOMEN: Soft, positive bowel sounds, nontender, no organomegaly.no flank tenderness SKIN: No rash, no excessive bruising, petechiae, or purpura. NEUROLOGIC: Cranial nerves II-XII intact without motor/sensory deficit. A/P: 1/ Hx of gastric cancer, but no symptoms to suggest recurrence on EGD 2022 2/ GERD with esophagitis and hiatal hernia, patulous LES 3/ constipation PLAN: 1/ trial of miralax and see if helps her sx 2/ colonsocopy, and add EGD given her hx of erosive esophagitis and gastric ca 3/ recommended on aspirin, she wants to hold till after EGD-discussed statin wants to hold PFSH Medical History Chest pain Hx of malignant neoplasm of stomach Vitamin D deficiency Rash GERD (gastroesophageal reflux disease) IBS (irritable bowel syndrome) Bilateral renal cysts Thyroid nodule HTN (hypertension) Surgical History S/P gastric surgery Hx of cholecystectomy History of appendectomy History of hernia repair Hx of endoscopy History of colonoscopy Family History Father No problems noted. Mother No problems noted. Sister No problems noted. Son No problems noted. Daughter No problems noted. Daughter No problems noted. Social History Housing: House Alcohol intake: never Patient Tobacco Use Status: Never used Tobacco e-Cigarette/Vaping Use: Never Used service: No Current occupational status: retired Cognitive needs: No Hearing needs: No Vision needs: Yes Physical Exam Vital Signs: Last Vital Signs Pulse 73 08/06/24 10:26 BP 137/73 08/06/24 10:26 BMI result Body Mass Index 31.6 Assessment & Plan Assessment & Plan (1) Abnormal bowel habits: Code(s): R19.8 - Other specified symptoms and signs involving the digestive system and abdomen Category: Medical Plan: as above Medications: New polyethylene glycol 3350 (Miralax) 17 grams PO BID 510 grams 2RF sodium,potassium,mag sulfates 17.5-3.13-1.6 gram (Suprep Bowel Prep Kit) DILUTE; drink 1/2 at 6-8 pm and half at 11 PM- 1AM 354 mL 0RF Coding Level of Care Code Est Pt Level 4 (62458) Diagnoses Abnormal bowel habits R19.8
[2024-08-06 10:26] VITALS: BP 137/73; PULSE 73; BMI 31.6
--- OUTSIDE RECORDS SUMMARY | 2024-08-06 11:57 | XMS_ITS | Data Portability ---
Author Organization [place] - [facility], Allergy Address [address] [address] Care Team Providers Care Dietetic Aide Name Role Phone SIERRA MARIAH Primary Care Provider Assessment Encounter Date Assessment Date Assessment LastModified [...] contrast - labs at [facility] 2024 025 [facility] ([facility]), [address] [facility], [place], [address], 18:37:05 Medication Orders None recorded. Patient TargetsNo [...] Address Organization Details Recorded Time Chronic rhinitis 27640978 Active 2021 Chronic rhinitis ; Note: Date Diagnose d: 2 5:09 PM (J31.0) Not Available [facility] 4 03:05:56 Viral screenin g Active 2021 Encounte r for screenin g for COVID-19 ; Note: Date Diagnose d: 2 5:09 PM (Z11.52) Not Available [facility] 4 03:05:55 Impacted cerumen in right ear 25149264544 27894 Active 2022 Impacted cerumen, right ear; Note: Date Diagnose d: 3 12:20 PM (H61.21) Not Available [facility] 4 03:05:55 Sensorin eural hearing loss of bilatera l ears 146057657 Active 2018 Sensorin eural hearing loss, bilatera l; Note: Date Diagnose d: 9 12:02 PM (H90.3) Not Available [facility] 4 03:05:57 Bilatera l temporom andibula r joint pain 22334153154 682465 Active 2022 Arthralg ia of bilatera l temporom andibula r joint; Note: Date Diagnose d: 3 12:20 PM (M26.623 ) Not Available [facility] 4 03:05:55 Otalgia of right ear 8992474793 Active 2020 Otalgia, right ear; Note: Date Diagnose d: 1 12:38 PM (H92.01) Not Available [facility] 4 03:05:56 Acute sinusiti s 93988687 Completed 202101/06/2024 Other acute sinusiti s; Note: Date Diagnose d: 12/08/2021 4:03 PM (J01.80) Not Available [facility] 4 03:05:58 Deviated nasal septum 221489641 Active 2022 Deviated nasal septum; Note: Date Diagnose d: 3 1:44 PM (J34.2) Not Available [facility] 4 03:05:56 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 QUINN JIMENEZ PA-C [address], [place], [address] , [place] - [facility] 5 14:37:41 Weakness of right facial muscle 989576190 Active 2024 QUINN JIMENEZ PA-C [address], [place], [address] , [place] - [facility] 5 14:38:34 Neoplasm of parotid gland 779967846 Active 2024 QUINN JIMENEZ PA-C [address], [place], [address] , [place] - [facility] 5 18:36:01 Localize d enlarged lymph nodes 518829329 Active 2024 QUINN JIMENEZ PA-C [address], [place], [address] , [place] [facility] 5 18:36:01 Mass of head and/or neck 995389682 Active 2024 QUINN JIMENEZ PA-C [address], [place], [address] , [place] - [facility] 5 18:36:01 Impacted cerumen of bilatera l ears 80749512746 01848 Active 2024 GREGG MATA MD [address], [place], [address] , [place] - [facility] 5 08:39:39 Problem Notes None recorded. Procedures Surgical History Date Name Laterality Status Provider Name and Address Organization Details Recorded Time 07/23/19 25 Cerumen removal without microscope bilat completed QUINN JIMENEZ PA-C [address] [place] [address], [place], [address], [place] - [facility] 07/23/2024 18:39:10 07/23/19 25 Tympanometry (24375) completed Corie Brandon [place] - [facility] 07/23/2024 14:11:37 07/23/19 25 Air [employer] Bone Audio (86287) completed Corie Brandon [facility] 07/23/2024 14:11:43 Imaging Results Imaging Date Name [...] by mouth 2021 active Medicatio n ID: [id number] Pr escribed By Name: JAZLYN Karimi Name: [...] by mouth 2018 active Medicatio n ID: [id number] Du ration Value: 14 Brand Name: acetamino [...] mg tablet 2018 active Medicatio n ID: [id number] Br and Name: lisinopri l Send Method: [...] Available Not Available No t Available Acid Eap Counselor (cimetidin e) 200 mg tablet 2018 active Medicatio n ID: [id number] Br and Name: Acid Eap Counselor (cimetidi ne) Send Method: E-Prescri bed Subs Allowed: subs [place] [facility]: Acid Eap Counselor (cimetidi ne) Not Available Not Available Not Available Readi-Cat 2 2 % (w/v) oral suspension DRINK 1 BOTTLE 2 HOURS PRIOR TO APPOINTME NT AND TAKE 1 BOTTLE 1 HOUR PRIOR TO APPOINTME NT active Not Available Not Available No t Available Vitals Date Recorded Body weight Body mass index (BMI) Body height Provider Name and Address Organization Details Last Updated DateTime 07/23/2024 25852.08 g 26.9 kg/m2 142.24 cm Nazia Antunez [place] - [facility] 07/23/2024 13:14:54 Social History None recorded. Functional Status None recorded. Mental Status None recorded. Family History Nothing Reported. Medical History No medical history recorded. Gynecological HistoryNo gynecological history recorded. Obstetrics History GPAL:G 0 P 0 0 0 0 Past Encounters Encounter ID Performer Location Encounter Start Date Encounter Closed Date Diagnosis/Indication Diagnosis SNOMED-CT Code Diagnosis ICD10 Code Diagnosis Note [id number] GREGG MATA MD [facility] [address] [address] 07/23/2024 13:01:34 07/23/2024 17:03:27 Sensorineural hearing loss of bilateral ears 366673977 H90.3 Audiologic al evaluation results: Right ear: [...] o f uncertain behavior of parotid gland 22296474 D37.030 Weakness o f right facial muscle 287915471 R29.810 Impacted c erumen of bilateral ears 6323316955 054580 H61.23 Health Concerns Section Related Observation LastModified by Organization Detai ls LastModified Time None Recorded Concern Status LastModified by Organization Details LastModified Time None Recorded Advance Directives Directive None Recorded Payers Encounter Date Sequence Insurance Name Policy Number Policy Treviño Covered Member ID Treviño Member ID Guarantor Name 07/23/2024 1 [facility] Negra Huff [id number] Negra Huff Notes Date Note Type Note Provider Name and Address Organization Details Recorded Time 07/23/2024 text/html 79 year old tara le seen with her daughter who provides the history and occasionally helps translate to [place] for her mother. On July 08 she developed left salivary gland swelling, tongue swelling and pressure in the left ear. She felt that she had some associated diminished hearing. She presented to the [facility] and they felt that she may [...] July 14 she was again seen at [facility] for right ear pain and also [...] them with her today. GREGG NGUYEN MD [address] [place] [address], [phone], [facility] - [facility] 07/24/2024 08:40:17 OBGyn Episode No OBEpisode recorded.
--- OUTSIDE RECORDS SUMMARY | 2024-08-06 11:57 | XMS_ITS ---
Author Organization [facility], Address [address] [place] [address] Care Team Providers Care Glass Sagger Name Role Phone Aditi [facility] [phone] ALLERGIES, ADVERSE REACTIONS, ALERTS Substance Code Code System Type Reaction Severity Status Start Date End Date No known drug allergies RxNorm Other substance allergy () 1 No known non-drug allergies RxNorm Other substance lakeisha rgy () 1 No known allergies RxNorm Other substance allergy () 1 MEDICATIONS Medication Code Code System Start Date Stop Date Route Dosage Directions Fill Instructions amoxicillin 159253 RxNorm 07/10/2024 oral 1 lisinopril RxNorm 2 PROBLEMS Problem Name Code Code System Start Date End Date Stat us Hypertension 58147541 [facility] 04/22/2022 Resolv ed Otalgia, left ear 04978211 [facility] 04/22/2022 R esolved Otalgia, left ear 393383299 [facility] 07/10/2024 Ac tive Otitis media, unspecified, left ear 2413480812285200 [facility] 07/10/2024 Active ENCOUNTERS Encounter Diagnosis Code Code System Date Stat us Otalgia, left ear 895122854 [facility] 07/10/2024 Active Otitis media, unspecified, left ear 0315374408516979 [facility] 07/10/2024 Active IMMUNIZATIONS * None VITAL SIGNS Code Code System Vitals Name Date Value and Un its 8462-4 [facility] Blood Pressure-Diastolic 07/10/2024 80 mmHg 8480-6 [facility] Blood Pressure-Systolic 07/10/2024 1 36 mmHg 8867-4 [facility] Heart Rate 07/10/2024 97 /min 9279-1 [facility] Respiratory Rate 07/10/2024 16 /min 8310-5 [facility] Body Temperature 07/10/2024 99.4 F 34648-7 [facility] Saturation 07/10/2024 94 % SOCIAL HISTORY [...] Injury Patient: LA MCGINNIS, Sex: F (ID# [id number]) Date of : 1945 (79 years) Visit on 07/10/2024 (Log# [id number]) Historian: Self Triage Notes: patient seen in [...] on 07/10/[address]-CPrescription sent to [facility]/pharmacy #[id number] (P: [phone] F: [phone]) [phone] [place], [address] Discharge Instructions: Earache, Adult Otitis Media, Adult [...]
== END 2024-08-06 11:15 | disposition home or self-care (01) ==
PROVIDERS: PCP Internal Medicine; Visit Provider Internal Medicine Gastroenterology
DX: R19.8 Other specified symptoms and signs involving the digestive system and abdomen (principal)
CPT/HCPCS: 99214

== ENCOUNTER → 2024-08-06 10:20 | Outpatient (BNVA) | payer MEDICARE, SELFPAY | PROVIDERS: PCP Internal Medicine; Visit Provider Internal Medicine Gastroenterology | DX: R19.8 Other specified symptoms and signs involving the digestive system and abdomen (principal); Z85.028 Personal history of other malignant neoplasm of stomach; Z90.3 Acquired absence of stomach [part of] | CPT/HCPCS: 99212 ==

== ENCOUNTER → 2024-08-29 10:02 | Outpatient (BNVA) | payer MEDICARE, SELFPAY | PROVIDERS: PCP Internal Medicine; Visit Provider Internal Medicine ==

== ENCOUNTER 2024-09-12 09:55 | Day surgery (SDC) | payer MEDICARE, SELFPAY ==
[2024-09-10 14:24] VITALS: BMI 26.0
--- NOTE | 2024-09-11 09:24 | P.CONAN_ITS ---
Documented by User: Nessa Ruvalcaba NP 09/11/24 09:25 HPI - Anesthesia Eval Consult details Narrative: 79yo F for Upper Endoscopy and Colonoscopy PMFSH Active Problems Active Problems: All Active Problems Abnormal bowel habits (Acute) Numbness and tingling of right side of face (Acute) Sialoadenitis of submandibular gland (Acute) Weight loss (Acute) Diarrhea (Acute) Trigger finger of right thumb (Acute) Neck pain on left side (Acute) HARP (dyspnea on exertion) (Acute) Trochanteric bursitis of left hip (Acute) Polyarthralgia (Acute) Knee pain, right (Acute) Sinusitis (Acute) Iron deficiency (Acute) Hip pain, bilateral (Acute) Back pain (Acute) Abdominal pain (Acute) Hyperglycemia (Acute) Maxillary sinusitis, acute (Acute) Otitis media (Acute) Annual physical exam (Acute) Chest pain (Acute) Esophagitis (Acute) Malaise and fatigue (Acute) GERD (gastroesophageal reflux disease) (Acute) S/P gastric surgery (Acute) Vitamin D deficiency (Acute) HTN (hypertension) (Acute) Rash (Acute) Past Medical History Medical History Chest pain Hx of malignant neoplasm of stomach Vitamin D deficiency Rash GERD (gastroesophageal reflux disease) IBS (irritable bowel syndrome) Bilateral renal cysts Thyroid nodule HTN (hypertension) Family History Family History Father No problems noted. Mother No problems noted. Sister No problems noted. Son No problems noted. Daughter No problems noted. Daughter No problems noted. Family history of problems with anesthesia: No Surgical History Surgical History S/P gastric surgery Hx of cholecystectomy History of appendectomy History of hernia repair Hx of endoscopy History of colonoscopy History of Problems with Anesthesia: No Social History Social History Housing: House Are you a primary assistant child care teacher to a significant other at home: No Do you presently have visiting nurse or other home services: No Alcohol intake: never Patient Tobacco Use Status: Never used Tobacco e-Cigarette/Vaping Use: Never Used Use of substances other than those prescribed or required for medical reasons: No Are you DNR?: No Advance Directives: No Advance Directives Information Provided: Yes Patient : No service: No Current occupational status: retired Cognitive needs: No Hearing needs: No Vision needs: Yes Meds Allergies Allergy/AdvReac Type Severity Reaction Status Date / Time azithromycin AdvReac Intermediate Stomach Verified 09/12/24 10:32 Upset Exam Height,Weight and Vital Signs: Height 4 ft 8 in Weight 52.617 kg Assessment and Plan Assessment Anesthesia Assessment: Chart Reviewed Final Anesthetic Review Family History of Problems with Anesthesia: No History of Problems with Anesthesia: No Documented by User: Lauren Clay MD 09/12/24 11:00 PMFSH Past Medical History Medical History Chest pain Hx of malignant neoplasm of stomach Vitamin D deficiency Rash GERD (gastroesophageal reflux disease) IBS (irritable bowel syndrome) Bilateral renal cysts Thyroid nodule HTN (hypertension) Family History Family History Father No problems noted. Mother No problems noted. Sister No problems noted. Son No problems noted. Daughter No problems noted. Daughter No problems noted. Family history of problems with anesthesia: No Surgical History Surgical History S/P gastric surgery Hx of cholecystectomy History of appendectomy History of hernia repair Hx of endoscopy History of colonoscopy History of Problems with Anesthesia: No Social History Social History Housing: House Are you a primary assistant child care teacher to a significant other at home: No Do you presently have visiting nurse or other home services: No Alcohol intake: never Patient Tobacco Use Status: Never used Tobacco e-Cigarette/Vaping Use: Never Used Use of substances other than those prescribed or required for medical reasons: No Are you DNR?: No Advance Directives: No Advance Directives Information Provided: Yes Patient : No service: No Current occupational status: retired Cognitive needs: No Hearing needs: No Vision needs: Yes Meds Allergies Allergy/AdvReac Type Severity Reaction Status Date / Time azithromycin AdvReac Intermediate Stomach Verified 09/12/24 10:32 Upset Exam Height,Weight and Vital Signs: Height 4 ft 8 in Weight 52.617 kg Vital Signs Temp Pulse Resp BP Pulse Ox O2 Del Method 09/12/24 10:34 97.1 F 67 14 150/71 H 96 Room Air Airway Mallampati Class: II TM Dist: >3cm Neck ROM: Full Loose/Missing/Broken Teeth: Yes (Missing some molars. Denies broken or loose teeth) Heart: RRR Lungs: CTAB Assessment and Plan Assessment Anesthesia Assessment: Anesthesia Plan Discussed and Chart Reviewed Final Anesthetic Review Family History of Problems with Anesthesia: No History of Problems with Anesthesia: No NPO: No (4 hours ago 32oz of prep + 16oz of water) ASA Class: III Final Preanesthetic Review: No Changes in Pt Med Stat, Meds/Allgs Chart Reviewed, Consent Obtained/Reviewed and Anes Risks/Benef Reviewed Patient Risk: Intermediate Procedure Risk: Low Assessment/Block/Sedation in SS: Assess/Block/Sedation-SS Anesthetic Plan Anesthetic Plan: TIVA Disposition: Standard PACU
--- NOTE | 2024-09-12 10:20 | MHC.SHP ---
Pre-Procedural Eval Section A - 24 Hr Update-Section A only Date of Service: 09/12/24 Section B - Complete if H&P > 30 days Chief Complaint: Other specified symptoms and signs involving Relevant Family History (Specify if Yes): No Relevant Social History: None Present Medications: see Short Stay Collaborative assessment Medical History: Significant History (Chest pain Hx of malignant neoplasm of stomach Vitamin D deficiency Rash GERD (gastroesophageal reflux disease) IBS (irritable bowel syndrome) Bilateral renal cysts Thyroid nodule HTN (hypertension)) History of Previous Operations: Relevant previous surgery/procedure and date(s) (S/P gastric surgery Hx of cholecystectomy History of appendectomy History of hernia repair Hx of endoscopy History of colonoscopy) Allergies: Allergies Allergy/AdvReac Type Severity Reaction Status Date / Time azithromycin AdvReac Intermediate Stomach Verified 08/29/24 10:04 Upset Review of Systems Sugical H&P ROS: Negative: Constitution, Cardiovascular, Respiratory, Neurological, Psychiatric, Hem-Onc, Allergic/Immunologic, Gastrointestinal, Genitourinary, Musculoskeletal, Integumentary, Endocrine and Eyes/Ears/Nose/Throat Exam Surgical H&P Exam: Normal: HEENT, Normal: Heart, Normal: Lungs, Normal: Extremities, Normal: Abdomen, Normal: Skin and Normal: Neurological Plan Diagnosis/Plan: Unchanged I have reviewed the history and physical and performed a pertinent physical examination on my patient. No changes have occurred unless specified. Time Spent With Patient Time: Total time managing care of this patient today ____ minutes.
[2024-09-12 10:34] VITALS: BP 150/71; PULSE 67; RESP 14; TEMP 36.2; O2SAT 96; BMI 24.7
[2024-09-12] MEDS: Lactated Ringers 1,000 ML 100 ML IVCONT (10:59)
--- NOTE | 2024-09-12 11:39 | P.OPN-COLO_ITS ---
Colonoscopy Operative Note Operative Note Date of Service: 09/12/24 Narrative: Operative Information Procedure Description: EGD, Colonoscopy Indication: [] Anesthesia: [] FLEXIBLE TRANSORAL UPPER GASTROINTESTINAL ENDOSCOPY AND COLONOSCOPY PROCEDURE NOTE UPPER ENDOSCOPY Consent: Indications for the procedure and potential complications of bleeding, perforation, reaction to medications and missed diagnosis were discussed with the patient and informed consent was obtained. Instrument: Olympus GIF H 190 J mid size upper endoscope Monitoring: Vital signs and clinical assessment, continuous EKG monitoring, Pulse oximetry, Carbon Dioxide monitoring and blood pressure monitoring were done throughout the procedure. Procedure: The patient was placed in the left lateral decubitis position and pre-procedure medications were administered and a bite block was placed. The endoscope was inserted into the mouth and advanced under direct vision to the third part of duodenum. A careful inspection was made as the upper endoscope was withdrawn including a retroflexed examination of the proximal stomach; Findings and interventions are described below. Findings: Larynx:normal Esophagus: GE junction at 30 cm, diaphragm hiatus at 33 cm, consistent with 3 cm sliding hiatal hernia, small islands of salmon pink tissue, bx taken to check for barretts Stomach: normal appearing mucosa, random bx taken from distal and proximal portions. Grade 2 flap valve on retroflexed examination of the cardia. Partial gastrectomy noted Small bowel--normal, bx taken Intervention: Biopsies as noted above COLONOSCOPY Instrument: Olympus variable stiffness pediatric scope 190L Colonoscopy Monitoring: Vital signs and clinical assessment, continuous EKG monitoring, Pulse oximetry, Carbon Dioxide monitoring and blood pressure monitoring were done throughout the procedure. Colon withdrawal time was 9 minutes. Procedure: The patient was placed in the left lateral decubitis position and pre-procedure medications were administered. After a digital rectal examination of the ano-rectum, the video colonoscope was inserted into the rectum and advanced through the colon to the cecum/TI. The colonoscope was slowly withdrawn in a retrograde panoramic fashion and the colon mucosa was carefully examined including a retroflexed view of the rectum. Findings and interventions are described below. Procedure Difficulty:moderate Findings: Terminal Ileum-not intubated Kim diverticulosis noted, more severe on the left Cecum:normal Ascending Colon: diverticulosis Transverse Colon - diverticulosis Descending Colon:normal Sigmoid Colon: severe diverticulosis, 8-9 mm sessile polyp removed with cold snare with one clip applied for hemostasis Rectum: Retroflexion with small internal hemorrhoids, grade I Anorectum - normal Colon preparation: [place] Bowel Preparation Scale Right colon; 3 Transverse colon: 3 Left colon; 3 (0 = Unprepared colon segment with mucosa not seen due to solid stool that cannot be cleared. 1 = Portion of mucosa of the colon segment seen, but other areas of the colon segment not well seen due to staining, residual stool and/or opaque liquid. 2 = Minor amount of residual staining, small fragments of stool and/or opaque liquid, but mucosa of colon segment seen well. 3 = Entire mucosa of colon segment seen well with no residual staining, small fragments of stool or opaque liquid) Impression and Post Procedure Diagnosis: Endoscopy Findings: possible barretts small hiatal hernia Colonoscopy Findings: diverticulosis colon polyp internal hemorrhoids Plan: Await Pathology results Repeat Colonoscopy in 5 years if health allows or earlier if clinically indicated High fiber diet leaflet avoid straining at stool, epsom salts and sitz bath, anusol supps or cream if barretts por can repeat EGD same time Above findings were reviewed with the patient and relevant handouts were provided if indicated.
[2024-09-12 11:47] VITALS: BP 164/78; PULSE 60; RESP 15; TEMP 36.2; O2SAT 99
[2024-09-12 11:52] VITALS: BP 165/77; PULSE 56; RESP 15; O2SAT 99
[2024-09-12 12:02] VITALS: BP 138/79; PULSE 62; RESP 18; O2SAT 99
[2024-09-12 12:07] VITALS: BP 126/69; PULSE 60; RESP 18; TEMP 36.3; O2SAT 99
== END 2024-09-12 13:49 | disposition home or self-care (01) ==
PROVIDERS: PCP Internal Medicine; Visit Provider Internal Medicine Gastroenterology
PROC: (CPT 45385; principal; 2024-09-12 12:10)
DX: R19.8 Other specified symptoms and signs involving the digestive system and abdomen (principal); D12.5 Benign neoplasm of sigmoid colon; K57.30 Diverticulosis of large intestine without perforation or abscess without bleeding; K64.0 First degree hemorrhoids; K58.9 Irritable bowel syndrome, unspecified; Z85.028 Personal history of other malignant neoplasm of stomach; Z90.3 Acquired absence of stomach [part of]; K21.9 Gastro-esophageal reflux disease without esophagitis; K44.9 Diaphragmatic hernia without obstruction or gangrene; I10 Essential (primary) hypertension; R07.9 Chest pain, unspecified; E04.1 Nontoxic single thyroid nodule; E55.9 Vitamin D deficiency, unspecified; Z88.1 Allergy status to other antibiotic agents
CPT/HCPCS: 45385; 43239; 88305; 88313; 88342; J2003; J2704

== ENCOUNTER → 2024-09-12 09:55 | Outpatient (BNV) | payer MEDICARE, SELFPAY | PROVIDERS: PCP Internal Medicine; Visit Provider Internal Medicine Gastroenterology | DX: K20.90 Esophagitis, unspecified without bleeding (principal); K29.70 Gastritis, unspecified, without bleeding; K57.90 Diverticulosis of intestine, part unspecified, without perforation or abscess without bleeding; D12.5 Benign neoplasm of sigmoid colon; K64.0 First degree hemorrhoids | CPT/HCPCS: 43239; 45385 ==

== ENCOUNTER 2024-10-01 14:19 | Outpatient (AMB) | payer MEDICARE, SELFPAY ==
[2024-10-01 14:22] VITALS: BP 120/76; PULSE 80; BMI 26.7
--- NOTE | 2024-10-01 14:22 | MHC.OFFVIS ---
Vital Signs 10/01/24 14:22 Height 4 ft 8 in Weight 119 lb 0.794 oz BMI 26.7 BP 120/76 Blood Pressure Location Lt brachial Position Sitting Pulse 80 Intake Visit Reasons: Chest Pain / HTN Intake Note: Follow-up with ekg has been having some chest pain and sob at times Construction Services Technician Required: Yes Construction Services Technician Services: Construction Services Technician Offered & Declined Deck Mechanic: Deck Mechanic Present Accompanied by: Daughter Allergies azithromycin Adverse Reaction (Intermediate, Verified 09/12/24 10:32) Stomach Upset Medication List - Last Reconciled 10/01/24 by Angus Murphy MD amlodipine 2.5 mg PO DAILY lansoprazole 30 mg PO DAILY polyethylene glycol 3350 (Miralax) 17 grams PO BID sodium,potassium,mag sulfates 17.5-3.13-1.6 gram (Suprep Bowel Prep Kit) DILUTE; drink 1/2 at 6-8 pm and half at 11 PM- 1AM HPI Comments Details: Negra comes for follow-up. She is here with a daughter who acts as employee benefits specialist. Patient has intermittent episodes of left-sided chest discomfort along with arm discomfort associated shortness of breath. The symptoms happen randomly and not with exercise. She underwent a recent upper and lower endoscopy and this suggestive of small hiatal hernia with Prakash's esophagus. Patient was daughters very concerned about having heart issues given the family history. A blood pressure as per her generally labile but today well controlled. She is on low-dose amlodipine therapy. [facility] Medical History Chest pain Hx of malignant neoplasm of stomach Vitamin D deficiency Rash GERD (gastroesophageal reflux disease) IBS (irritable bowel syndrome) Bilateral renal cysts Thyroid nodule HTN (hypertension) Surgical History S/P gastric surgery Hx of cholecystectomy History of appendectomy History of hernia repair Hx of endoscopy History of colonoscopy Family History Father No problems noted. Mother No problems noted. Sister No problems noted. Son No problems noted. Daughter No problems noted. Daughter No problems noted. Social History Housing: House Are you a primary primary care coordinator to a significant other at home: No Do you presently have visiting nurse or other home services: No Alcohol intake: never Patient Tobacco Use Status: Never used Tobacco e-Cigarette/Vaping Use: Never Used service: No Current occupational status: retired Cognitive needs: No Hearing needs: No Vision needs: Yes Review of Systems Const Denies chills, Denies fatigue, Denies fever(s), Denies frequent falls, Denies weakness, Denies weight gain and Denies weight loss ENT Denies dizziness Card Denies chest pain, Denies leg edema, Denies lightheadedness, Denies palpitations, Denies dyspnea, Denies dyspnea on exertion, Denies orthopnea and Denies other (loss of consciousness) Resp Denies cough, Denies dyspnea and Denies dyspnea on exertion GI Denies hematochezia and Denies change in stool character Musc Denies abnormal gait, Denies muscle weakness, Denies numbness, Denies radiating pain into limb and Denies tingling Neuro Denies Abnormal speech present, Denies abnormal gait, Denies dizziness, Denies frequent falls, Denies numbness, Denies tingling and Denies weakness Endo Denies fatigue and Denies palpitations Physical Exam Vital Signs: Last Vital Signs Pulse 80 10/01/24 14:22 BP 120/76 10/01/24 14:22 BMI result Body Mass Index 26.7 Const General: cooperative, comfortable, no acute distress, alert and awake Nutritional Appearance: overweight Orientation/consciousness: patient oriented x3 Limitations: no limitations HEENT Head: Yes normocephalic and Yes atraumatic Neck Neck: Yes trachea midline, Yes supple and Yes no JVD Resp Effort & Inspection: normal respiratory effort Auscultation: clear to auscultation bilaterally Cardio Jugular venous distension: no JVD Palpation: normal PMI Rate: regular rate Rhythm: regular rhythm Heart sounds: S1 normal heart sound present, S2 normal heart sound present, no click, no gallops, no murmurs and no rubs GI Auscultation: normal bowel sounds Skin General skin exam: no rashes or lesions noted Neuro General: patient oriented x3 and no focal motor deficits Speech: No Abnormal speech present Extrem General: Yes no clubbing, cyanosis or edema Psych Appearance: grossly normal Office Procedures EKG Details: EKG shows normal sinus rhythm with low-voltage QRS with poor R-wave progression most likely due to lead placement 56780-Tfzqqlszjvgnegegm, Complete Assessment & Plan Assessment & Plan (1) Chest pain: Comment: left side Code(s): R07.9 - Chest pain, unspecified Category: Medical Plan: Chest pain which is atypical in nature but with multiple risk factors include age and hypertension has a family history. Her myocardial perfusion imaging last year was within normal limits. I would suggest her to undergo coronary CTA to further evaluate coronary anatomy. This will be scheduled in near future. Likely this pain is most likely related to either anxiety and/or esophagitis with esophageal spasm. This was discussed with the daughter. She understands. Continue amlodipine therapy for good blood pressure control. Importance of good blood pressure control was discussed. Will follow up in the clinic if need be. Thank you for allowing me to partake in her care Orders: Orders CT Cardiac Coronary Angio 1 Week R07.9 - Chest pain, unspecified Coding Level of Care Code Est Pt Level 3 (50629) Complex EM visit Add On G2211 Diagnoses Chest pain R07.9 CPT Codes EKG - CPT: 30009-Rfdexzguktfowlrev, Complete ([id number])
--- OUTSIDE RECORDS SUMMARY | 2024-10-01 17:06 | XMS_ITS | Continuity of Care Document ---
Author Organization [place] - [facility], [facility] Address [address] [place] [address] Care Team Providers Care Sheep Killer Name Role Phone MARIAH ESQUIVEL Primary Care Provider [phone] Assessment No assessment recorded. Plan of Treatment Reminders Order Date Submit Date Provider Last Modified By Organization Details Last Modified Time Details Appointments None recorded. Lab RADHA (angiotensi n-convertin g enzyme), serum 2024 025 TYE [facility] (Centralized Electronic Ordering - All Locations), Patient Can Go To The Location Of Their Choice, 15:24:54 erythrocyte sedimentati on rate by westergren method 2024 025 T[facility] (Centralized Electronic Ordering - All Locations), Patient Can Go To The Location Of Their Choice, 15:24:55 unlisted lab - C-anca+P-an ca w/reflex 2024 025 T[facility] (Centralized Electronic Ordering - All Locations), Patient Can Go To The Location Of Their Choice, 15:24:54 myeloperoxi dase, QN, plasma 2024 025 T[facility] (Centralized Electronic Ordering - All Locations), Patient Can Go To The Location Of Their Choice, 15:24:55 Referral head and neck referral 2024 025 [email or web address] Susan Boyer MD, [address] [place] [address], [place], [address], 5 09:23:06 Procedures None recorded. Surgeries None recorded. Imaging None recorded. Medication Orders None recorded. Patient TargetsNo targets recorded. Patient Instructions Encounter Date Encounter Id Patient Instructions Last Modified By Organization Details Last Modified Time 09/26/2024 [id number] Patient with gila p lobe parotid mass. There is just the slightest weakness of the corner of the mouth and actually looks improved from our last visit. The daughter thinks there is some weakness of the forehead but that looks normal to me. Patient notes some numbness along the right cheek. 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 Suggest sed rate, RADHA level and ANCA. Patient will get PPD placed. Previously noted to be negative many years ago. Refer to Dr. Boyer for evaluation. 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 Referring Physician: Markos Nguyen, Otolaryngology, Encounter Date: 09/26/2024 Problems Name Problem SNOMED Code Status Onset Date Resolution Date Notes Provider Name and Address Organization Details Recorded Time Chronic rhinitis 04193980 Active 2021 Chronic rhinitis ; Note: Date Diagnose d: 2 5:09 PM (J31.0) Not Available [facility] 4 03:05:56 Viral screenin g Active 2021 Encounte r for screenin g for COVID-19 ; Note: Date Diagnose d: 2 5:09 PM (Z11.52) Not Available [facility] 4 03:05:55 Impacted cerumen in right ear 84406241139 63844 Active 2022 Impacted cerumen, right ear; Note: Date Diagnose d: 3 12:20 PM (H61.21) Not Available [facility] 4 03:05:55 Sensorin eural hearing loss of bilatera l ears 033528775 Active 2018 Sensorin eural hearing loss, bilatera l; Note: Date Diagnose d: 9 12:02 PM (H90.3) Not Available [facility] 4 03:05:57 Bilatera l temporom andibula r joint pain 27435778549 652785 Active 2022 Arthralg ia of bilatera l temporom andibula r joint; Note: Date Diagnose d: 3 12:20 PM (M26.623 ) Not Available [facility] 4 03:05:55 Otalgia of right ear 3417183164 Active 2020 Otalgia, right ear; Note: Date Diagnose d: 1 12:38 PM (H92.01) Not Available [facility] 4 03:05:56 Acute sinusiti s 96642442 Completed 202101/06/2024 Other acute sinusiti s; Note: Date Diagnose d: 12/08/2021 4:03 PM (J01.80) Not Available [facility] 4 03:05:58 Deviated nasal septum 364127120 Active 2022 Deviated nasal septum; Note: Date Diagnose d: 3 1:44 PM (J34.2) Not Available [facility] 4 03:05:56 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 - [facility] 5 14:37:41 Weakness of right facial muscle 429638730 Active 2024 QUINN JIMENEZ PA-C [address],[place] [address], [place], [address] , [facility] - [facility] [place] 5 14:38:34 Neoplasm of parotid gland 672352472 Active 2024 QUINN JIMENEZ PA-C [address],[place] [address], [place], [address] , [facility] - [facility] [place] 5 18:36:01 Localize d enlarged lymph nodes 042050030 Active 2024 QUINN JIMENEZ PA-C [address],[place] [address], [place], [address] , [facility] - [facility] [place] 18:36:01 Mass of head and/or neck 436011713 Active 2024 QUINN JIMENEZ PA-C [address], [facility] [place], [address] , [facility] - [facility] 18:36:01 Impacted cerumen of bilatera l ears 09539867486 70079 Active 2024 MARKOS MATA MD [address], [place], [address] , [facility] - [facility] 08:39:39 Problem Notes None recorded. Procedures Surgical History Date Name Laterality Status Provider Name and Address Organization Details Recorded Time 07/23/19 25 Cerumen removal without microscope bilat completed QUINN JIMENEZ PA-C [address] [facility] [address], [place], [address], [facility] - [facility] 07/23/2024 18:39:10 07/23/19 25 Tympanometry (42241) completed Corie Brandon [place] - [facility] 07/23/2024 14:11:37 07/23/19 25 [employer] (57329) completed Corie Brandon [place] - [facility] [place] 07/23/2024 14:11:43 cholecystectomy completed Geovanna Brock [place] - [facility] 09/26/2024 08:21:33 procedure on stomach completed Geovanna Brock [place] - [facility] 09/26/2024 08:21:47 Imaging Results None recorded. Procedure Notes None recorded. Medical Equipment None Reported. Allergies No known drug allergies Medications Name Sig Start Date Stop Date Status Note LastModified by Organization Details LastModified Time amoxicill in 500 mg capsule TAKE 1 CAPSULE BY MOUTH TWICE A DAY FOR 10 DAYS 09/26 completed Not Available Not Available Not Available doxycycli ne hyclate 100 mg capsule by mouth 09/26 completed Medicati on ID: [id number] Thang ramirez By Name: JAZLYN Karimi nd Name: doxycycl ine hyclate Send Method: E-Prescr ibed Sub s Allowed: subs OK Speci al Instruct ion: Take 1 PO bid X 2 weeks Me dication GenericN maegan: doxycycl ine hyclate Not Available Not Available Not Available cetirizin e 10 mg tablet TAKE 1 TABLET BY MOUTH DAILY NEEDED FOR ALLERGY SYMPTOMS active Not Available Not Available No t Available lisinopri l 20 mg-hydroc hlorothia zide 12.5 mg tablet TAKE 1/2 TABLET BY MOUTH DAILY active Not Available Not Available No t Available valacyclo vir 1 gram tablet TAKE 1 TABLET BY MOUTH EVERY 8 HOURS active Not Available Not Available No t Available meloxicam 15 mg tablet TAKE 1 TABLET BY MOUTH DAILY. 09/26 completed Not Available Not Available Not Available prednison e 20 mg tablet TAKE 60 MG (3 X 20 MG) ORALLY DAILY 09/26 completed Not Available Not Available Not Available amlodipin e 2.5 mg tablet TAKE 1 TABLET BY MOUTH EVERY DAY 09/26 completed Not Available Not Available Not Available ciproflox acin 250 mg tablet TAKE 1 TABLET BY MOUTH TWICE A DAY 09/26 completed Not Available Not Available Not Available amlodipin e 5 mg tablet TAKE 1 TABLET BY MOUTH EVERY DAY active Not Available Not Available No t Available acetamino phen 500 mg tablet 1-2 tablet by mouth 09/26 completed Medicati on ID: [id number] D uration Value: 14 Brand Name: acetamin ophlien Se nd Method: E-Prescr ibed Sub s Allowed: subs OK Medic ationGen ericName : acetamin ophen Not Available Not Available Not Available meloxicam 7.5 mg tablet TAKE 1 TABLET BY MOUTH EVERY DAY active Not Available Not Available No t Available ofloxacin 0.3 % ear drops APPLY 10 DROPS TO THE RIGHT EAR CANAL DAILY FOR 7 DAYS 09/26 completed Not Available Not Available Not Available baclofen 10 mg tablet TAKE 1 TABLET BY MOUTH AT BEDTIME 09/26 completed Not Available Not Available Not Available lisinopri l 10 mg tablet 09/26 completed Medicati on ID: [id number] B rand Name: lisinopr il Send Method: E-Prescr ibed Sub s Allowed: subs OK Medic ationGen ericName : lisinopr il Not Available Not Available Not Available lansopraz ole 30 mg capsule,d elayed release TAKE 1 CAPSULE BY MOUTH EVERY DAY active Not Available Not Available No t Available ipratropi um bromide 21 mcg (0.03 %) nasal spray INHALE 2 SPRAYS IN EACH NOSTRIL THREE TIMES A DAY DIRECTED 09/26 completed Not Available Not Available Not Available amoxicill in 875 mg-potass ium clavulana te 125 mg tablet TAKE 1 TABLET BY MOUTH TWICE A DAY 09/26 completed Not Available Not Available Not Available Acid Quilt Maker (cimetidi ne) 200 mg tablet 09/26 completed Medicati on ID: [id number] B rand Name: Acid Quilt Maker (cimetid ine) Sen d Method: E-Prescr ibed Sub s Allowed: subs OK Medic ationGen ericName : Acid Quilt Maker (cimetid ine) Not Available Not Available Not Available sodium,po tassium,m ag sulfates 17.5 gram-3.13 gram-1.6 gram oral soln DILUTE DRINK 1/2 AT 6-8 PM AND HALF AT 11 PM- 1AM active Not Available Not Available No t Available Readi-Cat 2 2 % (w/v) oral suspensio n DRINK 1 BOTTLE 2 HOURS PRIOR TO APPOINTM ENT AND TAKE 1 BOTTLE 1 HOUR PRIOR TO APPOINTM ENT 09/26 completed Not Available Not Available Not Available Vitals Date Recorded Body height Body weight Provider Name and Address Organization Details Last Updated DateTime 09/26/2024 142.24 cm 92974.08 g Geovanna Brock [place] - [facility] 09/26/2024 08:19:19 Social History None recorded. Functional Status None recorded. Mental Status None recorded. Family History Nothing Reported. Medical History Condition Response Cancer Y GERD/Reflux Y Hypertension Y Gynecological HistoryNo gynecological history recorded. Obstetrics History GPAL:G 0 P 0 0 0 0 Past Encounters Encounter ID Performer Location Encounter Start Date Encounter Closed Date Diagnosis/Indication Diagnosis SNOMED-CT Code Diagnosis ICD10 Code Diagnosis Note [id number] MARKOS MATA MD [facility] [address] [place] [address] 09/26/2024 08:09:55 09/26/2024 08:43:47 Neoplasm of uncertain behavior of parotid gland 70180034 D37.030 Weakness o f right facial muscle 246182887 R29.810 Health Concerns Section Related Observation LastModified by Organization Detai ls LastModified Time None Recorded Concern Status LastModified by Organization Details LastModified Time None Recorded Payers Encounter Date Sequence Insurance Name Policy Number Policy Treviño Covered Member ID Treviño Member ID Guarantor Name 09/26/2024 1 [facility] - MEDICARE PREFERRED (MEDICARE REPLACEMENT HMO) HAM Negra Huff [id number] Negra Huff Notes Date Note Type Note Provider Name and Address Organization Details Recorded Time 09/26/2024 text/html Patient seen wit h her daughter for a right deep lobe parotid mass. 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 No known history of tuberculosis. She notes some fullness in her right ear but is otherwise doing well has some chronic sinus congestion but prior MRI showed no sinus disease MARKOS NGUYEN MD [address] [place] [address], [place], [address], [facility] - [facility] 09/26/2024 08:42:37 OBGyn Episode No OBEpisode recorded.
--- OUTSIDE RECORDS SUMMARY | 2024-10-01 17:06 | XMS_ITS | Data Portability ---
Author Organization [place] - [facility], Allergy Address [address] [address] Care Team Providers Care Photocopying Machine Operator Name Role Phone SIERRA MARIAH Primary Care Provider [phone] Assessment Encounter Date Assessment Date Assessment LastModified [...] this time. Patient seen by Dr. Nguyen. Janice Jimenez PA-C functioned as a scribe for this visit. sri Not available 07/24/2024 08:39:51 Plan of Treatment Reminders Order Date Submit Date Provider Last Modified By Organization Details Last Modified Time Details Appointments None recorded. Lab RADHA (angiotensi n-convertin g enzyme), serum 2024 025 TYE [facility] (Centralized Electronic Ordering - All Locations), Patient Can Go To The Location Of Their Choice, [id number] 15:24:54 erythrocyte sedimentati on rate by [email or web address] [...] referral 2024 025 [email or web address] Susan Boyer MD, [address] [place] [address], [id number], 09:23:06 Procedures None recorded. Surgeries None recorded. Imaging CT, neck, soft tissue, w/ contrast - labs at [facility] 2024 025 [email or web address] [facility] ([facility] [address] [facility], [place], [address], 10:51:44 Medication Orders None recorded. Patient TargetsNo targets recorded. Patient Instructions Encounter Date Encounter Id Patient Instructions Last Modified By Organization Details Last Modified Time 09/26/2024 [id number] Patient with gila p lobe parotid mass. [...] Dr. Boyer for evaluation. 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 BARCODE Not Available 2024 15:14:55 08/14/19 25 08/01/2024 MRI, head + neck + orbit s, w/wo contr ast No observ ation record ed. [email or web address] Not Available 08/04 12:33:54 Result Notes None recorded. Problems Name Problem SNOMED Code Status Onset Date Resolution Date Notes Provider Name and Address Organization Details Recorded Time Chronic rhinitis 43229465 Active 2021 Chronic rhinitis ; Note: Date Diagnose d: 2 5:09 PM (J31.0) Not Available [facility] 4 03:05:56 Viral screenin g Active 2021 Encounte r for screenin g for COVID-19 ; Note: Date Diagnose d: 2 5:09 PM (Z11.52) Not Available [facility] 4 03:05:55 Impacted cerumen in right ear 09269305632 47593 Active 2022 Impacted cerumen, right ear; Note: Date Diagnose d: 3 12:20 PM (H61.21) Not Available [facility] 4 03:05:55 Sensorin eural hearing loss of bilatera l ears 978312488 Active 2018 Sensorin eural hearing loss, bilatera l; Note: Date Diagnose d: 9 12:02 PM (H90.3) Not [facility] 4 03:05:57 Bilatera l temporom andibula r joint pain 52506577635 251446 Active 2022 Arthralg ia of bilatera l temporom andibula r joint; Note: Date Diagnose d: 3 12:20 PM (M26.623 ) Not Available [facility] 4 03:05:55 Otalgia of right ear 2331342123 Active 2020 Otalgia, right ear; Note: Date Diagnose d: 1 12:38 PM (H92.01) Not Available [facility] 4 03:05:56 Acute sinusiti s 98242556 Completed 202101/06/2024 Other acute sinusiti s; Note: Date Diagnose d: 12/08/2021 4:03 PM (J01.80) Not Available [facility] 4 03:05:58 Deviated nasal septum 556928497 Active 2022 Deviated nasal septum; Note: Date Diagnose d: 3 1:44 PM (J34.2) Not Available [facility] 4 03:05:56 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 55301950 Active 2024 JANICE JIMENEZ PA-C [address], [place], [address] , [place] - [facility] 5 14:37:41 Weakness of right facial muscle 045806252 Active 2024 JANICE JIMENEZ PA-C [address], [place], [address] , [place] - [facility] 5 14:38:34 Neoplasm of parotid gland 499973640 Active 2024 JANICE JIMENEZ PA-C [address], [place], [address] , [place] - [facility] 5 18:36:01 Localize d enlarged lymph nodes 114982166 Active 2024 JANICE JIMENEZ PA-C [address], [place], [address] , [place] - [facility] 5 18:36:01 Mass of head and/or neck 826323612 Active 2024 JANICE JIMENEZ PA-C [address], [place], [address] , [place] - [facility] 5 18:36:01 Impacted cerumen of bilatera l ears 07226203738 02687 Active 2024 MARKOS MATA MD [address] [facility] [address], [place], [address] , [place] - [facility] 08:39:39 Problem Notes None recorded. Procedures Surgical History Date Name Laterality Status Provider Name and Address Organization Details Recorded Time 07/23/19 25 Cerumen removal without microscope bilat completed JANICE JIMENEZ PA-C [address],[facility] [address], [place], [address], [place] - [facility] 07/23/2024 18:39:10 07/23/19 25 Tympanometry (22028) completed Corie Brandon [place] - [facility] 07/23/2024 14:11:37 07/23/19 25 [employer] (41225) completed Corie Brandon [place] - [facility] 07/23/2024 14:11:43 cholecystectomy completed Geovanna Brock [place] - [facility] 09/26/2024 08:21:33 procedure on stomach completed Geovanna Brock [place] - [facility] 09/26/2024 08:21:47 Imaging Results Imaging Date Name Status LastModified by Organiz ation Details LastModified Time 07/23/2024 audiogram completed BAR[facility] Information no t available 07/23/2024 15:14:55 08/01/2024 MRI, head + neck + orbits, w/wo contrast completed [email or web address] Information not available 08/13/2024 12:33:54 Procedure Notes None recorded. Medical Equipment None [...] by mouth 09/26 completed Medicati on ID: [id number] Thang ramirez By Name: JAZLYN Karimi nd [...] by mouth 09/26 completed Medicati on ID: [id number] D uration Value: 14 Brand Name: acetamin ophen Se nd Method: E-Prescr ibed Sub s Allowed: subs [place] [facility] acetamin ophen Not Available Not [...] mg tablet 09/26 completed Medicati on ID: [id number] B rand Name: lisinopr il Send Method: [...] Not Available Not Available Not Available Acid Printing Worker Supervisor (cimetidi ne) 200 mg tablet 09/26 completed Medicati on ID: [id number] B rand Name: Acid Printing Worker Supervisor (cimetid ine) Sen d Method: E-Prescr ibed Sub s Allowed: subs [place] Medic ationGen ericName : Acid Printing Worker Supervisor (cimetid ine) Not Available Not Available Not [...] Details Last Updated DateTime 09/26/2024 142.24 cm 12312.08 g Geovanna Brock [place] [facility] 09/26/2024 08:19:19 Date Recorded Body weight Body mass index (BMI) Body height Provider Name and Address Organization Details Last Updated DateTime 07/23/2024 28476.08 g 26.9 kg/m2 142.24 cm Nazia Antunez [place] - [facility] 07/23/2024 13:14:54 Social History None recorded. Functional Status None recorded. Mental Status None recorded. Family History Nothing Reported. Medical History Condition Response Cancer Y Hypertension Y GERD/Reflux Y Gynecological HistoryNo gynecological history recorded. Obstetrics History GPAL:G 0 P 0 0 0 0 Past Encounters Encounter ID Performer Location Encounter Start Date Encounter Closed Date Diagnosis/Indication Diagnosis SNOMED-CT Code Diagnosis ICD10 Code Diagnosis Note [id number] MARKOS MATA MD [facility] [address] [place] [address] 07/23/2024 13:01:34 07/23/2024 17:03:27 Sensorineural hearing loss of bilateral ears 760629261 H90.3 Audiologic al evaluation results: Right ear: {{Normal N ormal through 2 kHz Mild* Moderate M oderately- severe Sev ere Profou nd}} {{hearing hearing. s loping to a mild slopi ng to a moderate s loping to moderately severe slo ping to severe* sl oping to profound f lat high frequency low frequency mid frequency cookie bite mc curve}} {{with sen sorineural hearing loss with* [...] o f uncertain behavior of parotid gland 24964604 D37.030 Weakness o f right facial muscle 820763070 R29.810 Impacted c erumen of bilateral ears 7165067198 843920 H61.23 [id number] MARKOS MATA MD [facility] [address] [address] 09/26/2024 08:09:55 09/26/2024 08:43:47 Neoplasm of uncertain behavior of parotid gland 31188755 D37.030 Weakness o f right facial muscle 568281919 R29.810 Health Concerns Section Related Observation LastModified by Organization Detai ls LastModified Time None Recorded Concern Status LastModified by Organization Details LastModified Time None Recorded Advance Directives Directive None Recorded Payers Encounter Date Sequence Insurance Name Policy Number Policy Treviño Covered Member ID Treviño Member ID Guarantor Name 07/23/2024 1 [facility] [employer] Negralissette Liaolnwisam [id number] Negra Liaolnwisam 09/26/2024 1 [facility] - MEDICARE PREFERRED (MEDICARE REPLACEMENT HMO) [employer] Negra I Daria [id number] Negra Huff Notes Date Note Type Note Provider Name and Address Organization Details Recorded Time 07/23/2024 text/html 79 year old tara le seen with her daughter who provides the history and occasionally helps translate to [place]ian for her mother. On July 08 she developed left salivary gland swelling, tongue swelling and pressure in the left ear. She felt that she had some associated diminished hearing. She presented to the [facility] and they felt that she may [...] July 14 she was again seen at [facility] for right ear pain and also [...] does not have them with her today. MARKOS NGUYEN MD [address] [facility],[place] [address], [place], [address], [place] - [facility] 07/24/2024 08:40:17 09/26/2024 text/html Patient seen wit h her daughter for a right deep lobe parotid mass. 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 No known history of tuberculosis. She notes some fullness in her right ear but is otherwise doing well has some chronic sinus congestion but prior MRI showed no sinus disease MARKOS NGUYEN MD [address] [facility] [address], [place], [address], [facility] - [facility] 09/26/2024 08:42:37 OBGyn Episode No OBEpisode recorded.
== END 2024-10-01 14:49 | disposition home or self-care (01) ==
LOC: HO.HCS 14:19
PROVIDERS: PCP Internal Medicine; Visit Provider Internal Medicine Cardiovascular Disease
DX: R07.9 Chest pain, unspecified (principal)
CPT/HCPCS: 93010; 99213; G2211

== ENCOUNTER → 2024-10-01 14:19 | Outpatient (BNVA) | payer MEDICARE, SELFPAY | PROVIDERS: PCP Internal Medicine; Visit Provider Internal Medicine Cardiovascular Disease | DX: R07.9 Chest pain, unspecified (principal); I44.0 Atrioventricular block, first degree; R94.31 Abnormal electrocardiogram [ECG] [EKG] | CPT/HCPCS: 93005; 99212 ==